=== PATIENT | female | born 1960 | race Caucasian/White ===

== ENCOUNTER 2017-07-12 12:28 | Emergency (ER) | payer MEDICARE, OTHER ==
[~2017-07-12] VITALS: Ht 167.6 cm; Wt 54.4 kg
[2017-07-12] MEDS ORDERED: LEVOTHYROXINE50 MCG PO ×2 (13:19→13:33)
[2017-07-12] MEDS ORDERED: DEPAKOTE ER250 MG PO ×2 (13:19→13:33)
== END 2017-07-12 13:45 | disposition home or self-care (01) ==
LOC: ED 12:28
DX: Z76.0 Encounter for issue of repeat prescription (principal); F31.9 Bipolar disorder, unspecified; E03.9 Hypothyroidism, unspecified; Z79.899 Other long term (current) drug therapy; Z88.5 Allergy status to narcotic agent; Z88.8 Allergy status to other drugs, medicaments and biological substances
CPT/HCPCS: 99281

== ENCOUNTER 2017-09-12 21:30 | Emergency (ER) | payer MEDICARE, OTHER ==
[~2017-09-12] VITALS: Ht 167.6 cm; Wt 54.4 kg
[~2017-09-12 21:30] MED LIST: DEPAKOTE ER250 MG PO; LEVOTHYROXINE50 MCG PO
[2017-09-12] MEDS ORDERED: PENICILLIN V P500 MG PO (22:34)
== END 2017-09-12 22:48 | disposition home or self-care (01) ==
LOC: ED 21:30
DX: K04.7 Periapical abscess without sinus (principal); F31.9 Bipolar disorder, unspecified; Z88.5 Allergy status to narcotic agent; Z88.8 Allergy status to other drugs, medicaments and biological substances; Z79.899 Other long term (current) drug therapy
CPT/HCPCS: 99283

== ENCOUNTER 2017-09-13 18:32 | Emergency (ER) | payer MEDICARE, OTHER ==
[~2017-09-13] VITALS: Ht 167.6 cm; Wt 54.4 kg
[~2017-09-13 18:32] MED LIST changes: +PENICILLIN V P500 MG PO
== END 2017-09-13 20:47 | disposition home or self-care (01) ==
LOC: ED 18:32
DX: F31.9 Bipolar disorder, unspecified (principal); K04.7 Periapical abscess without sinus; Z88.5 Allergy status to narcotic agent; Z88.8 Allergy status to other drugs, medicaments and biological substances; Z79.899 Other long term (current) drug therapy
CPT/HCPCS: 80053; 80176; 81001; 84443; 85025; 87088; 99284; G0480

== ENCOUNTER 2017-10-03 20:43 | Emergency (ER) | payer MEDICARE, OTHER ==
[~2017-10-03] VITALS: Ht 167.6 cm; Wt 54.4 kg
[2017-10-03] MEDS ORDERED: IBU600 MG PO (22:18)
[2017-10-03] MEDS ORDERED: NORCO 5-325 TA1 EACH PO (22:19)
== END 2017-10-04 00:40 | disposition home or self-care (01) ==
LOC: ED 20:43
DX: F44.9 Dissociative and conversion disorder, unspecified (principal); Z88.5 Allergy status to narcotic agent; Z88.8 Allergy status to other drugs, medicaments and biological substances; Z79.899 Other long term (current) drug therapy
CPT/HCPCS: 80053; 80176; 81001; 84443; 85025; 99284; G0480

== ENCOUNTER 2018-07-25 18:12 | Emergency (ER) | payer MEDICARE, OTHER ==
[~2018-07-25] VITALS: Ht 167.6 cm; Wt 54.4 kg
[~2018-07-25 18:12] MED LIST changes: +IBU600 MG PO; +NORCO 5-325 TA1 EACH PO
--- OUTSIDE RECORDS SUMMARY | 2018-07-25 18:16 | XMS ---
PreManage Notification: SARKIS KOO Security Marketing Operations Assistant Events No recent Security Events currently on file CRITERIA MET - [facility] CARE PROVIDERS RACHEL RASMUSSEN Nurse Practitioner Current PHONE: Unknown Mindy Gallegos Mental Health Provider Current PHONE: [phone] Aniket Nix - Case or Undercollar Baster Current [employer] PHONE: [phone] RACHEL RASMUSSEN Primary Care Current PHONE: [phone] Ivonne has no Care Guidelines for this patient. Care History Medical/Surgical 10/04/2017 [facility] - Patient is currently being case managed and working with [employer]. - Patient currently lives at [place], and has psychiatric disorder. Care Recommendation: This patient has had 5 or more Emergency Department visits in the last 12 months. Patient requires education on the scope and purpose of the ED as an acute care provider not a Primary Care Provider and should not be utilized for chronic conditions. If patient returns to ED please contact [facility] at [phone]. These are guidelines and the provider should exercise clinical judgment when providing care. E.D. VISIT COUNT (12 MO.) [address] [facility] TOTAL 5 NOTE: Visits indicate total known visits. ED/UCC VISIT TRACKING (12 MO.) 07/25/2018 18:13 [facility] [place] TYPE: Emergency COMPLAINT: - DIZZINESS 10/03/2017 20:43 [facility] [place] TYPE: Emergency COMPLAINT: - ALTERED LOC DIAGNOSES: - Allergy status to other drugs, medicaments and biological substances status - [facility] [place] [facility] [place] therapy - Allergy status to narcotic agent status - Dissociative and conversion disorder, unspecified 09/19/2017 12:59 [facility] TYPE: Urgent Care DIAGNOSES: - Medication Refill - Hypothyroidism, unspecified - Bipolar disorder, current episode mixed, unspecified 09/13/2017 18:33 [facility] [place] TYPE: Emergency COMPLAINT: - MEDICAL CLEARANCE DIAGNOSES: - Periapical abscess without sinus - Allergy status to other drugs, medicaments and biological substances status - Allergy status to narcotic agent status - Encounter for other general examination - Other [place] [facility] [place] drug therapy - Bipolar disorder, unspecified 09/12/2017 21:30 [facility] [place] TYPE: Emergency COMPLAINT: - MENTAL HEALTH EVAL DIAGNOSES: - Other manager terminal (current) drug therapy - Allergy status to other drugs, medicaments and biological substances status - Periapical abscess without sinus - Bipolar disorder, unspecified - Allergy status to narcotic agent status - Encounter for other general examination 09/03/2017 12:46 [facility] [place] TYPE: Emergency COMPLAINT: - MENTAL HEALTH DIAGNOSES: - Encounter for issue of repeat prescription - Anxiety disorder, unspecified - Bipolar disorder, unspecified INPATIENT VISIT TRACKING (12 MO.) No inpatient visits to display in this time frame [email or web address]
[2018-07-25] MEDS ORDERED: TRAZODONE HCL100 MG PO (18:31)
[2018-07-25] MEDS ORDERED: METOPROLOL SUCC50 MG PO (18:31)
[2018-07-25] MEDS ORDERED: OLANZAPINE ODT5 MG PO (18:31)
[2018-07-25] MEDS ORDERED: LEVOTHYROXINE50 MCG PO (18:31)
[2018-07-25] MEDS ORDERED: REXULTI3 MG PO (18:31)
--- NOTE | 2018-07-25 20:01 | EKG ---
[facility] [address] [facility] [place] [address] Signed Sinus bradycardia Nonspecific T wave abnormality Cannot rule out Septal infarct Abnormal ECG No previous ECGs available Confirmed by KHANH MCELROY MD ([id number]) on 07/25/2018 8:01:36 PM Electronically Signed By: KHANH MCELROY MD 07/25/18 2001 PATIENT NAME: SARKIS KOO Electrocardiogram DATE OF : 64 PHYSICIAN: KHANH MCELROY MD REPORT #: [id number] REPORT IS CONFIDENTIAL AND NOT TO BE RELEASED WITHOUT AUTHORIZATION
== END 2018-07-25 20:08 | disposition home or self-care (01) ==
LOC: ED 18:12
DX: R55 Syncope and collapse (principal); F31.9 Bipolar disorder, unspecified; Z88.5 Allergy status to narcotic agent; Z88.8 Allergy status to other drugs, medicaments and biological substances; Z91.048 Other nonmedicinal substance allergy status; Z79.899 Other long term (current) drug therapy
CPT/HCPCS: 80053; 80164; 84484; 85025; 93005; 93010; 93225; 93226; 93227; 99284-25

== ENCOUNTER 2019-04-30 18:56 | Emergency (ER) | payer MEDICARE, OTHER ==
[~2019-04-30] VITALS: Ht 167.6 cm; Wt 65.3 kg
--- OUTSIDE RECORDS SUMMARY | ~2019-04-30 | XMS | Encounter Summary ---
Demographics + + + | Address | [address] | | | [place] [address] | + + + | Home Phone | | + + + | Preferred Language | Unknown | + + + | Marital Status | Single | + + + | Bahai Affiliation | 1013 | + + + | Race | Unknown | + + + | Ethnic Group | Unknown | + + + Author + + + | Author | [facility] | | | and [place] | + + + | Organization | [facility] | | | and [place] | + + + | Address | Unknown | + + + | Phone | Unavailable | + + + Support + + + + + | Name | Relationship | Address | Phone | + + + + + | Cassidy Perez | ECON | Unknown | | + + + + + | Sara Tse | ECON | [place], [place] | | + + + + + | Brant Almazan | ECON | Unknown | | + + + + + | Sherine Tse | ECON | Unknown | | + + + + + Care Team Providers + +------+ + | Care Staff Assistant Name | Role | Phone | + +------+ + | Darryl Duartenadine BRICENO | PCP | | + +------+ + Reason for Visit + + + | Reason | Comments | + + + | Rib Pain | | + + + Encounter Details +--------+ + + + + | Date | Type | Department | Care Team | Description | +--------+ + + + + | 06/14/ | Emergency | [facility] | Usama Adorno, | 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[facility] | [address] | syndrome (Primary | | | | EM[facility] | [place] [address] | Dx); Anxiety about | | | | [address] | [phone] | health | | | | [place] | | | | | | [address] | | | | | | [phone] | | | +--------+ + + + + Social History + +-------+ +--------+------+ | Tobacco Use | Types | Packs/Day | Years | Date | | | | | Used | | + +-------+ +--------+------+ | Never Smoker | | | | | + +-------+ +--------+------+ + + +---------+ + | Alcohol Use | Drinks/Week | oz/Week | Comments | + + +---------+ + | No | | | | + + +---------+ + + + + | Sex Assigned at | Date Recorded | | | | + + + | Not on file | | + + + + + + + | Job Start Date | Occupation | Industry | + + + + | Not on file | Not on file | Not on file | + + + + + + + + | Travel History | Travel Start | Travel End | + + + + + + | No recent travel history available. | + + documented as of this encounter Last Filed Vital Signs + + + + + | Vital Sign | Reading | Time Taken | Comments | + + + + + | Blood Pressure | 126/95 | 06/14/2016 11:38 PM | | | | | PST | | + + + + + | Pulse | 63 | 06/14/2016 11:38 PM | | | | | PST | | + + + + + | Temperature | 36.8 C (98.3 F) | 06/14/2016 5:22 PM | | | | | PST | | + + + + + | Respiratory Rate | 16 | 06/14/2016 11:38 PM | | | | | PST | | + + + + + | Oxygen Saturation | 100% | 06/14/2016 11:38 PM | | | | | PST | | + + + + + | Inhaled Oxygen | - | - | | | Concentration | | | | + + + + + | Weight | 54.4 kg (120 lb) | 06/14/2016 5:22 PM | | | | | PST | | + + + + + | Height | 168.9 cm (5' 6.5") | 06/14/2016 5:22 PM | | | | | PST | | + + + + + | Body Mass Index | 19.08 | 06/14/2016 5:22 PM | | | | | PST | | + + + + + documented in this encounter Discharge Instructions Instructions Usama Adorno MD - 06/14/2016Take it easy and use ice 30 minutes 4 times a day for the next week to the left side near chest Avoid any sudden movements or straining of your chest wall including heavy lifting or prolo nged walking or running Motrin will certainly help decrease the inflammation along with ice and if the pain gets ba d you can use Ultram There are no signs of any problems with your lungs or your ribs today. There is no signs of any problems insides are abdomen today Return for problems or concerns and follow-up your doctor next week if not resolved. documented in this encounter Medications at Time of Discharge + + + +---------+ + + | Medication | Sig | Dispensed | Refills | Start | End Date | | | | | | Date | | + + + +---------+ + + | Divalproex Sodium | Take by mouth. | | 0 | | | | (DEPAKOTE PO) | 250mg in the AM and | | | | 8 | | | 750mg in the evening | | | | | + + + +---------+ + + | ibuprofen | Take 1 tablet by | 30 | 0 | 06/14/19 | | | (ADVIL,MOTRIN) 800 | mouth every 8 hours | tablet | | 17 | 7 | | MG tablet | as needed for Pain. | | | | | + + + +---------+ + + | levothyroxine | Take 88 mcg by mouth | | 0 | | | | (SYNTHROID, | every morning | | | | 8 | | LEVOTHROID) 88 mcg | (before breakfast). | | | | | | tablet | | | | | | + + + +---------+ + + | traMADol (ULTRAM) | Take 1 tablet by | 20 | 0 | 06/14/19 | | | 50 mg tablet | mouth every 6 hours | tablet | | 17 | 8 | | | as needed for Pain. | | | | | + + + +---------+ + + documented as of this encounter Plan of Treatment +--------+---------+ + + + | Date | Type | Specialty | Care Team | Description | +--------+---------+ + + + | 08/15/ | Office | Cardiology | Tali Manzo DO | | | 2020 | Visit | | [address] | | | | | | [place] | | | | | | [address] | | | | | | | | +--------+---------+ + + + + +------+--------+ + + | Name | Type | Priori | Associated Diagnoses | Date/Time | | | | ty | | | + +------+--------+ + + | ECG 12 lead | ECG | STAT | | 06/14/2016 7:37 PM | | | | | | PST | + +------+--------+ + + documented as of this encounter Procedures + +--------+ + + + | Procedure Name | Priori | Date/Time | Associated Diagnosis | Comments | | | ty | | | | + +--------+ + + + | EXTRA HOLD TUBE(S) | Routin | 06/14/2016 | | Results for this | | | e | 10:14 PM | | procedure are in the | | | | PST | | results section. | + +--------+ + + + | EXTRA HOLD TUBE(S) | STAT | 06/14/2016 | | Results for this | | | | 9:03 PM | | procedure are in the | | | | PST | | results section. | + +--------+ + + + | TROPONIN I | STAT | 06/14/2016 | | Results for this | | | | 9:03 PM | | procedure are in the | | | | PST | | results section. | + +--------+ + + + | D-DIMER | STAT | 06/14/2016 | | Results for this | | | | 9:03 PM | | procedure are in the | | | | PST | | results section. | + +--------+ + + + | CBC WITH | STAT | 06/14/2016 | | Results for this | | DIFFERENTIAL | | 9:03 PM | | procedure are in the | | | | PST | | results section. | + +--------+ + + + | COMPREHENSIVE | STAT | 06/14/2016 | | Results for this | | METABOLIC PANEL | | 9:03 PM | | procedure are in the | | | | PST | | results section. | + +--------+ + + + | XR CHEST 2 VIEWS | STAT | 06/14/2016 | | Results for this | | | | 8:58 PM | | procedure are in the | | | | PST | | results section. | + +--------+ + + + | ECG 12 LEAD | STAT | 06/14/2016 | | | | | | 7:37 PM | | | | | | PST | | | + +--------+ + + + documented in this encounter Results Extra Hold Tube(s) (06/14/2016 10:14 PM PST) + +-------+ + + + | Component | Value | Ref Range | Performed | Pathologist | | | | | At | Signature | + +-------+ + + + | Extra Tube | URINE | | [facility] | | | | | [facility] | | | | | | [facility] | | | | | | LABORATORY | | + +-------+ + + + + + | Specimen | + + | | + + + + + + + | Performing | Address | City/State/Zipcode | Phone Number | | Organization | | | | + + + + + | [facility] | [address] | [place] [address] | | | [facility] | | | | | LABORATORY | | | | + + + + + Extra Hold Tube(s) (06/14/2016 9:03 PM PST) + +-------+ + + + | Component | Value | Ref Range | Performed | Pathologist | | | | | At | Signature | + +-------+ + + + | Extra Tube | SST | | [facility] | [facility] | | | | | | [facility] | | | | | | CENTER | | | | | | LABORATORY | | + +-------+ + + + + + | Specimen | + + | | + + + + + + + | Performing | Address | City/State/Zipcode | Phone Number | | Organization | | | | + + + + + | [facility] | [address] | [place] [address] | | | [facility] | | | | | LABORATORY | | | | + + + + + D-Dimer (06/14/2016 9:03 PM PST) + + + + + + | Component | Value | Ref Range | Performed | Pathologist | | | | | At | Signature | + + + + + + | D-Dimer | 0.36Comment: This | <0.50 ug/mL FEU | [facility] | | | Quantitativ | quantitative D Dimer | | [facility] | | | e | assay has been evaluated | | HEART | | | | for screening for | | MEDICAL | | | | venous thrombotic | | CENTER | | | | disease, and may be | | LABORATORY | | | | useful in ruling out, | | | | | | but not ruling in | | | | | | disease. Values less | | | | | | than 0.40 ug/mL have a | | | | | | negative predictive | | | | | | value of >95% for ruling | | | | | | out large pulmonary | | | | | | emboli or proximal deep | | | | | | vein thrombosis. Distal | | | | | | DVT are not excluded. | | | | | | Rheumatoid factor may | | | | | | falsely elevate the | | | | | | determined D Dimer | | | | | | levels. | | | | + + + + + + + + | Specimen | + + | Blood specimen | | (specimen) | + + + + + + + | Performing | Address | City/State/Zipcode | Phone Number | | Organization | | | | + + + + + | [facility] | [address] | [place] [address] | | | [facility] | | | | | LABORATORY | | | | + + + + + Troponin I (06/14/2016 9:03 PM PST) + +-------+ + + + | Component | Value | Ref Range | Performed | Pathologist | | | | | At | Signature | + +-------+ + + + | Troponin I | 0.02 | 0.00 - 0.06 | [facility] | | | | | ng/mL | [facility] | | | | | | [facility] | | | | | | MEDICAL | | | | | | CENTER | | | | | | LABORATORY | | + +-------+ + + + + + | Specimen | + + | Blood specimen | | (specimen) | + + + + + + + | Performing | Address | City/State/Zipcode | Phone Number | | Organization | | | | + + + + + | [facility] | [address] | [place] [address] | | | [facility] | | | | | LABORATORY | | | | + + + + + Comprehensive Metabolic Panel (06/14/2016 9:03 PM PST) + + + + + + | Component | Value | Ref Range | Performed | Pathologist | | | | | At | Signature | + + + + + + | Na | 143 | 135 - 145 | [facility] | | | | | mmol/L | [facility] | | | | | | HE[facility] | | | | | | MEDICAL | | | | | | CENTER | | | | | | LABORATORY | | + + + + + + | K | 3.5 | 3.5 - 5.0 | [facility] | | | | | mmol/L | [facility] | | | | | | HE[facility] | | | | | | MEDICAL | | | | | | CENTER | | | | | | LABORATORY | | + + + + + + | Cl | 108 | 99 - 109 mmol/L | [facility] | | | | | [facility] | | | | | | [facility] | | | | | | MEDICAL | | | | | | CENTER | | | | | | LABORATORY | | + + + + + + | CO2 | 28 | 21 - 28 mmol/L | [facility] | | | | [facility] | | | | | | [facility] | | | | | | MEDICAL | | | | | | CENTER | | | | | | LABORATORY | | + + + + + + | Glucose | 66Comment: Green[place]ic | 65 - 99 mg/dL | [facility] | | | | Diabetes Association | | [facility] | | | | diagnostic categories | | HEART | | | | for non adults: | | MEDICAL | | | | Impaired fasting | | CENTER | | | | glucose 100 to 125 | | LABORATORY | | | | mg/dL. A fasting | | | | | | glucose result of 126 | | | | | | mg/dL or greater | | | | | | indicates diabetes if | | | | | | the abnormality is | | | | | | confirmed on a | | | | | | subsequent day. A | | | | | | random glucose result of | | | | | | greater than 200 mg/dL | | | | | | indicates diabetes if | | | | | | the abnormality is | | | | | | confirmed on a | | | | | | subsequent day. | | | | + + + + + + | BUN | 7 (L) | 8 - 25 mg/dL | [facility] | | | | | | [facility] | | | | | | [facility] | | | | | | MEDICAL | | | | | | CENTER | | | | | | LABORATORY | | + + + + + + | Creatinine | 0.58Comment: IDMS | 0.50 - 1.00 | [facility] | | | | traceable creatinine | mg/dL | [facility] | | | | | | HEART | | | | | | MEDICAL | | | | | | CENTER | | | | | | LABORATORY | | + + + + + + | Calcium | 9.2 | 8.5 - 10.2 | [facility] | | | | | mg/dL | [facility] | | | | | | HE[facility] | | | | | | MEDICAL | | | | | | CENTER | | | | | | LABORATORY | | + + + + + + | Total | 6.0 (L) | 6.1 - 8.4 g/dL | [facility] | | | Protein | | | [facility] | | | | | | HEART | | | | | | MEDICAL | | | | | | CENTER | | | | | | LABORATORY | | + + + + + + | Albumin | 3.9 | 3.5 - 5.0 g/dL | [facility] | | | | | | [facility] | | | | | | [facility] | | | | | | MEDICAL | | | | | | CENTER | | | | | | LABORATORY | | + + + + + + | Bilirubin | 0.3 | 0.1 - 1.5 mg/dL | [facility] | | | Total | | | [facility] | | | | | | HE[facility] | | | | | | MEDICAL | | | | | | CENTER | | | | | | LABORATORY | | + + + + + + | Alkaline | 53 | 35 - 115 U/L | [facility] | | | Phosphatase | | | [facility] | | | | | | HEART | | | | | | MEDICAL | | | | | | CENTER | | | | | | LABORATORY | | + + + + + + | AST | 21 | 10 - 45 U/L | [facility] | | | | | | [facility] | | | | | | [facility] | | | | | | MEDICAL | | | | | | CENTER | | | | | | LABORATORY | | + + + + + + | ALT | 13 | 10 - 65 U/L | [facility] | | | | | | [facility] | | | | | | [facility] | | | | | | MEDICAL | | | | | | CENTER | | | | | | LABORATORY | | + + + + + + | Anion Gap | 7 | 5 - 16 mmol/L | [facility] | | | | | | [facility] | | | | | | [facility] | | | | | | MEDICAL | | | | | | CENTER | | | | | | LABORATORY | | + + + + + + | Estimated | >60Comment: GFR <60: | >60 | [facility] | | | GFR | Chronic kidney disease, | ml/min/1.73m2 | [facility] | | | | if found over a 3 month | | HEART | | | | period.GFR <15: Kidney | | MEDICAL | | | | failure.For | | CENTER | | | | Americans, multiply the | | LABORATORY | | | | calculated GFR by 1.210 | | | | + + + + + + + + | Specimen | + + | Blood specimen | | (specimen) | + + + + + + + | Performing | Address | City/State/Zipcode | Phone Number | | Organization | | | | + + + + + | [facility] | [address] | [place] [address] | | | [facility] | | | | | LABORATORY | | | | + + + + + CBC with Differential (06/14/2016 9:03 PM PST) + + + + + + | Component | Value | Ref Range | Performed | Pathologist | | | | | At | Signature | + + + + + + | WBC | 6.8 | 3.8 - 11.0 K/uL | [facility] | | | | | [facility] | | | | | | [facility] | | | | | | MEDICAL | | | | | | CENTER | | | | | | LABORATORY | | + + + + + + | RBC | 4.56 | 3.70 - 5.10 | [facility] | | | | | M/uL | [facility] | | | | | | HE[facility] | | | | | | MEDICAL | | | | | | CENTER | | | | | | LABORATORY | | + + + + + + | Hemoglobin | 13.7 | 11.3 - 15.5 | [facility] | | | | | g/dL | [facility] | | | | | | HE[facility] | | | | | | MEDICAL | | | | | | CENTER | | | | | | LABORATORY | | + + + + + + | Hematocrit | 40.7 | 34.0 - 46.0 % | [facility] | | | | | | [facility] | | | | | | [facility] | | | | | | MEDICAL | | | | | | CENTER | | | | | | LABORATORY | | + + + + + + | MCV | 89.3 | 80.0 - 100.0 fL | [facility] | | | | | | [facility] | | | | | | [facility] | | | | | | MEDICAL | | | | | | CENTER | | | | | | LABORATORY | | + + + + + + | MCH | 30.1 | 27.0 - 34.0 pg | [facility] | | | | | | [facility] | | | | | | [facility] | | | | | | MEDICAL | | | | | | CENTER | | | | | | LABORATORY | | + + + + + + | MCHC | 33.7 | 32.0 - 35.5 | [facility] | | | | | g/dL | [facility] | | | | | | HE[facility] | | | | | | MEDICAL | | | | | | CENTER | | | | | | LABORATORY | | + + + + + + | RDW-CV | 13.9 | 11.0 - 15.5 % | [facility] | | | | | | [facility] | | | | | | [facility] | | | | | | MEDICAL | | | | | | CENTER | | | | | | LABORATORY | | + + + + + + | Platelet | 167 | 150 - 400 K/uL | [facility] | | | Count | | | [facility] | | | | | | HEART | | | | | | MEDICAL | | | | | | CENTER | | | | | | LABORATORY | | + + + + + + | Differentia | Automated | | [facility] | | | l Type | | | [facility] | | | | | | HEART | | | | | | MEDICAL | | | | | | CENTER | | | | | | LABORATORY | | + + + + + + | % | 58.4 | 40.0 - 75.0 % | [facility] | | | Neutrophils | | | [facility] | | | | | | HEART | | | | | | MEDICAL | | | | | | CENTER | | | | | | LABORATORY | | + + + + + + | % | 33.1 | 15.0 - 48.0 % | [facility] | | | Lymphocytes | | | [facility] | | | | | | HE[facility] | | | | | | MEDICAL | | | | | | CENTER | | | | | | LABORATORY | | + + + + + + | % Monocytes | 7.0 | 0.0 - 12.0 % | [facility] | | | | | | [facility] | | | | | | [facility] | | | | | | MEDICAL | | | | | | CENTER | | | | | | LABORATORY | | + + + + + + | % | 0.7 | 0.0 - 7.0 % | [facility] | | | Eosinophils | | | [facility] | | | | | | HEART | | | | | | MEDICAL | | | | | | CENTER | | | | | | LABORATORY | | + + + + + + | % Basophils | 0.8 | 0.0 - 2.0 % | [facility] | | | | | | [facility] | | | | | | [facility] | | | | | | MEDICAL | | | | | | CENTER | | | | | | LABORATORY | | + + + + + + | Absolute | 4.00 | 1.90 - 7.40 | [facility] | | | Neutrophils | | K/uL | [facility] | | | | | | HE[facility] | | | | | | MEDICAL | | | | | | CENTER | | | | | | LABORATORY | | + + + + + + | Absolute | 2.20 | 1.00 - 3.90 | [facility] | | | Lymphocytes | | K/uL | [facility] | | | | | | HE[facility] | | | | | | MEDICAL | | | | | | CENTER | | | | | | LABORATORY | | + + + + + + | Absolute | 0.50 | 0.00 - 0.80 | [facility] | | | Monocytes | | K/uL | [facility] | | | | | | HE[facility] | | | | | | MEDICAL | | | | | | CENTER | | | | | | LABORATORY | | + + + + + + | Absolute | 0.00 | 0.00 - 0.50 | [facility] | | | Eosinophils | | K/uL | [facility] | | | | | | HE[facility] | | | | | | MEDICAL | | | | | | CENTER | | | | | | LABORATORY | | + + + + + + | Absolute | 0.10 | 0.00 - 0.10 | [facility] | | | Basophils | | K/uL | [facility] | | | | | | HE[facility] | | | | | | MEDICAL | | | | | | CENTER | | | | | | LABORATORY | | + + + + + + + + | Specimen | + + | Blood specimen | | (specimen) | + + + + + + + | Performing | Address | City/State/Zipcode | Phone Number | | Organization | | | | + + + + + | [facility] | [address] | [place] [address] | | | [facility] | | | | | LABORATORY | | | | + + + + + XR Chest 2 VW (06/14/2016 8:58 PM PST) + + | Specimen | + + | | + + + + + | Narrative | Performed At | + + + | CHEST TWO VIEWS CLINICAL INFORMATION: Left sided chest | [facility] | | pain for four weeks. COMPARISON: No comparisons FINDINGS: | | | The heart size and pulmonary vasculature are normal. No focal lung | | | consolidation, pleural effusion or pneumothorax. Visualized osseous | | | structures are unremarkable. IMPRESSION: Negative chest. | | | Signed by: Dr. Merced Sanchez | | + + + + + | Procedure Note | + + | Sanjeev, Rad Results In - 06/14/2016 9:06 PM PST | | | | CHEST TWO VIEWS | | | | CLINICAL INFORMATION: | | Left sided chest pain for four weeks. | | | | COMPARISON: | | No comparisons | | | | FINDINGS: | | The heart size and pulmonary vasculature are normal. No focal lung | | consolidation, pleural effusion or pneumothorax. Visualized osseous | | structures are unremarkable. | | | | IMPRESSION: | | Negative chest. | | | | | | | | Signed by: Dr. 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 | + + | Anxiety about health | + + documented in this encounter Administered Medications + +--------+ +--------+------+------+ | Medication Order | MAR | Action | Dose | Rate | Site | | | Action | Date | | | | + +--------+ +--------+------+------+ | acetaminophen (TYLENOL) tablet | Given | 06/14/19 | 650 mg | | | | 650 mg 650 mg, Oral, ONCE, Mon | | 17 10:12 | | | | | 06/14/16 at 2155, For 1 dose | | PM PST | | | | + +--------+ +--------+------+------+ +---+---+ | | | +---+---+ + +-------+ +-------+---+---+ | ketorolac (TORADOL) injection | Given | 06/14/19 | 15 mg | | | | 15 mg 15 mg, Intravenous, ONCE, | | 17 9:04 | | | | | 06/14/16 at 1925, For 1 dose | | PM PST | | | | + +-------+ +-------+---+---+ +---+---+ | | | +---+---+ + +-------+ +-------+---+---+ | ketorolac (TORADOL) injection | Given | 06/14/19 | 15 mg | | | | 15 mg 15 mg, Intravenous, ONCE, | | 17 10:12 | | | | | 06/14/16 at 2155, For 1 dose | | PM PST | | | | + +-------+ +-------+---+---+ +---+---+ | | | +---+---+ + +-------+ +------+---+---+ | ondansetron (ZOFRAN) injection | Given | 06/14/19 | 4 mg | | | | 4 mg 4 mg, Intravenous, ONCE, | | 17 10:12 | | | | | 06/14/16 at 2155, For 1 dose | | PM PST | | | | + +-------+ +------+---+---+ +---+---+ | | | +---+---+ + +-------+ + +---+---+ | oxyCODONE-acetaminophen | Given | 06/14/19 | 1 tablet | | | | (PERCOCET) 5-325 mg per tablet 1 | | 17 10:12 | | | | | tablet 1 tablet, Oral, ONCE, Mon | | PM PST | | | | | 06/14/16 at 2155, For 1 dose | | | | | | + +-------+ + +---+---+ +---+---+ | | | +---+---+ documented in this encounter
--- OUTSIDE RECORDS SUMMARY | ~2019-04-30 | XMS | Encounter Summary ---
Demographics + + + | Address | [address] | | | [place] [address] | + + + | Home Phone | | + + + | Preferred Language | Unknown | + + + | Marital Status | Single | + + + | Buddhist Affiliation | 1013 | + + + | Race | Unknown | + + + | Ethnic Group | Unknown | + + + Author + + + | Author | [facility] | | | and [place] | + + + | Organization | [facility] | | | [...] Team Providers + +------+ + | Care Noc Engineer Name | Role | Phone | + +------+ + | Rachel Duarte [facility] | PCP | | + +------+ + Reason for Visit +---------+ + | Reason | Comments | +---------+ + | Otalgia | | +---------+ + Encounter Details +--------+ + + + + | Date | Type | Department | Care Team | Description | +--------+ + + + + | 11/11/ | Emergency | [facility] | Neema Gar, | Eustachian tube | | 2017 | | [facility] | [facility] [address], | dysfunction, | | | | [facility] | - Emergency Dept | unspecified | | | | [address] | [place] [address] | laterality (Primary | | | | [place] | [phone] | Dx); Gingivitis | | | | [address] | | | | | | [phone] | | | +--------+ + + + [...] + + + | Blood Pressure | 103/69 | 11/11/2016 5:24 PM | | | | | PDT | | + + + + + | Pulse | 76 | 11/11/2016 5:24 PM | | | | | PDT | | + + + + + | Temperature | 36.8 C (98.3 F) | 11/11/2016 5:24 PM | | | | | PDT | | + + + + + | Respiratory Rate | 16 | 11/11/2016 5:24 PM | | | | | PDT | | + + + + + | Oxygen Saturation | 97% | 11/11/2016 5:24 PM | | | | | PDT | | + + + + + | Inhaled Oxygen | - | - | | | Concentration | | | | + + + + + | Weight | 57.2 kg (126 lb) | 11/11/2016 5:24 PM | | | | | PDT | | + + + + + | Height | 167.6 cm (5' 6") | 11/11/2016 5:24 PM | | | | | PDT | | + + + + + | Body Mass Index | 20.34 | 11/11/2016 5:24 PM | | | | | PDT | | + + + + + documented in this encounter Discharge Instructions Instructions Neema Gar ARNP - 11/11/2016Prednisone as prescribed for 3 days Flonase 1 spray each nostril twice daily as needed until the eustachian tubes are draining normally History you're drinking plenty of fluid 1.Good oral care, brush with soft bristle toothbrush and toothpaste for sensative teeth 2. Rinse with 50/50 mix of mouthwash and hydrogen peroxide 3. Follow up with your dentist as soon as possible AttachmentsThe following attachments cannot be sent through Care Everywhere.EAR PROBLEMS, Dione GILLIAM (OMANI)documented in this encounter Medications at Time of [...] + + + +---------+ + + | fluticasone | 1 spray by Nasal | 15.8 mL | 0 | 11/12/19 | | | (FLONASE) 50 | route Twice daily | | | 17 | 8 | | mcg/nasal spray | as needed for | | | | | | | Allergies. | | | | | + + [...] + + + +---------+ + + | predniSONE | Take 2 tablets by | 12 | 0 | 11/12/19 | | | (DELTASONE) 10 mg | mouth 2 times daily | tablet | | 17 | 7 | | tablet | for 3 days. | | | | | + + [...] | Tali Manzo DO | | | 2019 | Visit | | [address] | | | | | | [place] | | | | | | [address] | | | | | | | | +--------+---------+ + + + + +------+--------+ + + | Name | Type | Priori | Associated Diagnoses | Date/Time | | | | ty | | | + +------+--------+ + + | ED INFORMATION | [facility] | Routin | | 11/11/2016 5:23 PM | | EXCHANGE | | e | | PDT | + +------+--------+ + + documented as of this encounter Procedures + +--------+ + + + | Procedure Name | Priori | Date/Time | Associated Diagnosis | Comments | | | ty | | | | + +--------+ + + + | ED INFORMATION | Routin | 11/11/2016 | | | | EXCHANGE | e | 5:23 PM | | | | | | PDT | | | + +--------+ + + + +---+--------+ | | | | | Proced | | | ure | | | Note - | | | Zaria, | | | Lab In | | | | | | Hlseve | | | n - | | | 11/11/ | | | 2016 | | | 5:24 | | | PM PDT | | | | | | Format | | | ting | | | of | | | this | | | note | | | might | | | be | | | differ | | | ent | | | from | | | the | | | origin | | | al.ZARIA | | | E?NOTI | | | FICATI | | | ON?06/ | | | 15/ | | | 7 | | | 17:20? | | | HASKET | | | T, | | | SARKIS | | | | | | A?MRN: | | | | | | [id number] | | | [id number] | | | his | | | patien | | | t has | | | regist | | | ered | | | at the | | | | | | Provid | | | ence | | | [facility] | | | l | | | Center | | | | | | Emerge | | | ncy | | | Depart | | | ment | | | For | | | more | | | inform | | | ation | | | visit: | | | | | | https: | | | //prov | | | .ediec | | | arepla | | | [email or web address].com/ | | | patien | | | [id number] | | | [email or web address] | | | [id number] | | | [email or web address] | | | [id number] | | | [id number] | | | 5c ED | | | Care | | | Guidel | | | inesTh | | | ere | | | are | | | curren | | | tly no | | | ED | | | Care | | | Guidel | | | luis | | | in | | | [facility] | | | for | | | this | | | patien | | | t. | | | Please | | | check | | | your | | | facili | | | ty's | | | medica | | | l | | | record | | | s | | | system | | | .Recen | | | t | | | Emerge | | | ncy | | | Depart | | | ment | | | Visit | | | Summar | | | yAdmit | | | Date | | | Facili | | | ty | | | City | | | State | | | Type | | | Major | | | Type | | | Diagno | | | ses or | | | Chief | | | | | | Compla | | | int | | | Jonathan | | | 15, | | | 2017 | | | Prov[facility] | | | ence | | | [facility] [place] | | | [place] | | | Emerge | | | ncy | | | Emerge | | | ncy | | | Apr | | | 23, | | | 2017 | | | Provid | | | ence | | | [facility] [place] | | | [place] | | | Emerge | | | ncy | | | Emerge | | | ncy | | | | | | Dental | | | Pain | | | | | | Other | | | specif | | | ied | | | disord | | | ers of | | | teeth | | | and | | | suppor | | | ting | | | struct | | | ures | | | Mar | | | 17, | | | 2017 | | | Prov[facility] | | | ence | | | [facility] [place] | | | [place] | | | Emerge | | | ncy | | | Emerge | | | ncy | | | | | | Psychi | | | atric | | | Evalua | | | tion | | | | | | Sexual | | | ly | | | Transm | | | itted | | | Diseas | | | e | | | Check | | | | | | Urinar | | | y | | | tract | | | infect | | | ion, | | | site | | | not | | | specif | | | ied | | | | | | Person | | | with | | | feared | | | | | | health | | | | | | compla | | | int in | | | whom | | | no | | | diagno | | | sis is | | | made | | | E.D. | | | Visit | | | Count | | | (12 | | | mo.)Fa | | | cility | | | | | | Visits | | | Low | | | Acuity | | | | | | Provid | | | ence | | | [facility] | | | [facility] | | | | | | Medica | | | l | | | Center | | | 5 0 | | | Total | | | 5 0 | | | Note: | | | Visits | | | | | | indica | | | te | | | total | | | known | | | visits | | | . | | | Medica | | | id Low | | | | | | Acuity | | | Dx | | | are | | | the | | | number | | | of | | | primar | | | y | | | diagno | | | ses on | | | the | | | Medica | | | id's | | | Low | | | Acuity | | | dx | | | list. | | | | | | Recent | | | | | | Inpati | | | ent | | | Visit | | | Summar | | | yNo | | | record | | | ed | | | inpati | | | ent | | | visits | | | . | | | [place] | | | gton | | | PDMP | | | Report | | | PDMP | | | report | | | does | | | not | | | meet | | | criter | | | ia.Car | | | e | | | Provid | | | ersPro | | | vider | | | PRC | | | Type | | | Phone | | | Fax | | | Servic | | | e | | | Dates | | | RACHEL | | | LASALL | | | E | | | Primar | | | y Care | | | (509) | | | | | | [phone] | | | 00 | | | (509) | | | [phone] | | | 06 Nov | | | 1, | | | 2016 - | | | | | | Curren | | | t | | | Criter | | | ia met | | | 5 in | | | | | | 12Know | | | n | | | Aliase | | | sNo | | | known | | | aliase | | | s. The | | | above | | | | | | inform | | | ation | | | is | | | provid | | | ed for | | | the | | | sole | | | purpos | | | e of | | | patien | | | t | | | treatm | | | ent. | | | Use of | | | this | | | inform | | | ation | | | beyond | | | the | | | terms | | | of | | | Data | | | Sharin | | | g | | | Memora | | | ndum | | | of | | | Unders | | | tandin | | | g and | | | Licens | | | e | | | Agreem | | | ent is | | | | | | prohib | | | ited. | | | In | | | certai | | | n | | | cases | | | not | | | all | | | visits | | | may | | | be | | | repres | | | ented. | | | | | | Consul | | | t the | | | aforem | | | ention | | | ed | | | facili | | | ties | | | for | | | additi | | | onal | | | inform | | | ation. | | | ? | | | 2017 | | | Collec | | | tive | | | Medica | | | l | | | Techn[employer] | | | logies | | | , [employer] | | | - | | | [place] | | | [place] | | | [place], | | | [place] - | | | [email or web address] | | | ollect | | | ivemed | | | icalte | | | ch.com | | | | +---+--------+ documented in this encounter Visit Diagnoses + + | Diagnosis | + + | Eustachian tube dysfunction, unspecified laterality - Primary | + + | Gingivitis Chronic gingivitis, plaque induced | + + documented in this encounter
--- OUTSIDE RECORDS SUMMARY | ~2019-04-30 | XMS | Encounter Summary ---
Demographics + + + | Address | [address] | | | [place] [address] | + + + | Home Phone | | + + + | Preferred Language | Unknown | + + + | Marital Status | Single | + + + | Latter Day Affiliation | 1013 | + + + | Race | Unknown | + + + | Ethnic Group | Unknown | + + + Author + + + | Author | [facility] | | | and [place] | + + + | Organization | [facility] | | | [...] Team Providers + +------+ + | Care Crm Marketing Specialist Name | Role | Phone | + +------+ + | No, Physician | PCP | Unavailable | + +------+ + Reason for Visit +--------+ + | Reason | Comments | +--------+ + | Other | | +--------+ + Encounter Details +--------+ + + + + | Date | Type | Department | Care Team | Description | +--------+ + + + + | 10/04/ | Telephone | [facility] | Susie Pearson, | Other | | 2018 | | CARE [address] | [address] | | | | | [place] | [place] | | | | | [address] | [address] | | | | | [phone] | | | +--------+ + + + + Social History + +-------+ +--------+------+ | Tobacco Use | Types | Packs/Day | Years | Date | | | | | Used | | + +-------+ +--------+------+ | Never Smoker | | | | | + +-------+ +--------+------+ + +---+---+---+ | Smokeless Tobacco: | | | | | Never Used | | | | + +---+---+---+ + + +---------+ + | Alcohol Use [...] [place] | | | | | | [address] | | | | | | | | +--------+---------+ + + + documented as of this encounter Visit Diagnoses Not on filedocumented in this encounter"
--- OUTSIDE RECORDS SUMMARY | ~2019-04-30 | XMS | Clinical Summary ---
Demographics + + + | Address | [address] | | | [place] [address] | + + + | Home Phone | | + + + | Preferred Language | Unknown | + + + | Marital Status | Single | + + + | Cheondoism Affiliation | Unknown | + + + | Race | Unknown | + + + | Ethnic Group | Unknown | + + + Author + + + | Author | [facility] (Historical as of | | | 01-13-19) | + + + | Organization | [facility] (Historical as of | | | 01-13-19) | + + + | Address | Unknown | + + + | Phone | Unavailable | + + + Support + + +---------+ + | Name | Relationship | Address | Phone | + + +---------+ + | Brant Almazan | ECON | Unknown | | + + +---------+ + | Sherine Tse | ECON | Unknown | | + + +---------+ + Care Team Providers + +------+ + | Care Timber Robber Name | Role | Phone | + +------+ + | Jontahan Careny | PP | | + +------+ + Allergies + + + + + + | Active Allergy | Reactions | Severity | Noted | Comments | | | | | Date | | + + + + + + | Povidone Iodine | Rash | Medium | 06/07/19 | | | | | | 19 | | + + + + + + | Codeine | Nausea and Vomiting | Low | 06/07/19 | | | | | | 19 | | + + + + + + | Haloperidol And | Other (See Comments) | Medium | 06/07/19 | Became delerious | | Related | | | 19 | | + + + + + + | Flu Virus Vaccine | Rash | Medium | 06/07/19 | | | | | | 19 | | + + + + + + | [place] | Other (See Comments) | Medium | 06/07/19 | Fatigued and | | | | | 19 | "flat" feeling, she | | | | | | had zero motivation. | | | | | | | + + + + + + Current Medications + + +--------+---------+------+------+-------+ | Prescription | Sig. | Disp. | Refills | Star | End | Statu | | | | | | t | Date | s | | | | | | Date | | | + + +--------+---------+------+------+-------+ | divalproex | Take 250 mg by mouth | | | | | Activ | | (DEPAKOTE) 250 MG EC | 3 (three) times | | | | | e | | tablet | daily. | | | | | | + + +--------+---------+------+------+-------+ | traZODone | Take 100 mg by mouth | | | | | Activ | | (DESYREL) 100 MG | nightly. | | | | | e | | tablet | | | | | | | + + +--------+---------+------+------+-------+ | brexpiprazole | Take 3 mg by mouth | | | | | Activ | | (REXULTI) 3 MG | daily. | | | | | e | | tablet | | | | | | | + + +--------+---------+------+------+-------+ | acetaminophen | Take 325 mg by mouth | | | | | Activ | | (TYLENOL) 325 MG | every 6 (six) hours | | | | | e | | tablet | as needed for Pain. | | | | | | + + +--------+---------+------+------+-------+ | levothyroxine | Take 50 mcg by mouth | | | | | Activ | | (SYNTHROID) 50 MCG | every morning | | | | | e | | tablet | before breakfast. | | | | | | + + +--------+---------+------+------+-------+ | metoprolol | Take 1 tablet by | 30 | 11 | 07/01 | 07/01 | Activ | | (TOPROL-XL) 25 MG 24 | mouth daily. | tablet | | 8/20 | 8/ | e | | hr tablet | | | | 19 | 20 | | + + +--------+---------+------+------+-------+ | metoprolol | take 1 tablet by | 30 | 1 | 11/27 | | Activ | | (TOPROL-XL) 50 MG 24 | mouth once daily | tablet | | 20 | | e | | hr tablet | | | | 19 | | | + + +--------+---------+------+------+-------+ Active Problems + + + | Problem | Noted Date | + + + | Non-rheumatic mitral regurgitation | 06/15/2018 | + + + | Left ventricular outflow obstruction | 06/15/2018 | + + + | Systolic anterior movement of mitral valve | 06/15/2018 | + + + | Diastolic dysfunction | 06/15/2018 | + + + | LVH (left ventricular hypertrophy) | 06/15/2018 | + + + Family History + + +------+ + | Medical History | Relation | Name | Comments | + + +------+ + | Cancer | Father | | bladder | + + +------+ + + +------+ + + | Relation | Name | Status | Comments | + +------+ + + | Father | | | | + +------+ + + | Mother | | | | + +------+ + + Social History + +-------+ +--------+------+ [...] + +---------+ + | Alcohol Use | Drinks/We | oz/Week | Comments | | | ek | | | + + +---------+ + | Yes | | | Socially, but now in [employer] program and | | | | | is not allowed. | + + +---------+ + + + + | Sex Assigned at | Date Recorded | | | | + + + | Not on file | | + + + Last Filed Vital Signs + + + + | Vital Sign | Reading | Time Taken | + + + + | Blood Pressure | 102/56 | 07/27/2018 2:04 PM PST | + + + + | Pulse | 61 | 07/27/2018 2:04 PM PST | + + + + | Temperature | - | - | + + + + | Respiratory Rate | - | - | + + + + | Oxygen Saturation | 99% | 07/27/2018 2:04 PM PST | + + + + | Inhaled Oxygen | - | - | | Concentration | | | + + + + | Weight | 61.2 kg (135 lb) | 07/27/2018 2:04 PM PST | + + + + | Height | 168.9 cm (5' 6.5") | 07/27/2018 2:04 PM PST | + + + + | Body Mass Index | 21.46 | 07/27/2018 2:04 PM PST | + + + + Plan of Treatment + + + + + | Health Maintenance | Due Date | Last Done | Comments | + + + + + | Vaccine: | | | | | Dtap/Tdap/Td (1 - | 1 | | | | Tdap) | | | | + + + + + | Vaccine: | | | | | Pneumococcal 19-64 | 1 | | | | (PPSV23 only) Medium | | | | | Risk (1 of 1 - | | | | | PPSV23) | | | | + + + + + | Cervical Cancer | | | | | Screening (Pap) | 2 | | | + + + + + | Breast Cancer | | | | | Screening | 2 | | | | (Mammogram) | | | | + + + + + | Colon Cancer | | | | | Screening | 2 | | | | (Colonoscopy) | | | | + + + + + | Vaccine: Zoster (1 | | | | | of 2) | 2 | | | + + + + + Results Not on filefrom Last 3 Months Insurance + +--------+ +------+-------+ + | Payer | Benefi | Subscriber | Type | Phone | Address | | | t Plan | ID | | | | | | / | | | | | | | Group | | | | | + +--------+ +------+-------+ + | MEDICARE | MEDICA | [id number] | | | [address] | | | [place] | | | | [place] [phone] | | | IP-OP | | | | | + +--------+ +------+-------+ + | MEDICAID | MEDICA | [id number] | | | [address] | | | [place] | | | | [place] | | | [place] | | | | [address] | + +--------+ +------+-------+ + + +--------+ +--------+ + + | Guarantor Name | Accoun | Relation to | Date | Phone | Billing Address | | | t Type | Patient | of | | | | | | | | | | + +--------+ +--------+ + + | YUE TSE | Person | Self [birth year] Work: | [address] | | | al/[place] | | 2 | [phone] | [place] | | | [place] | | | [phone]: | [address] | | | | | | | | | | | | | [phone] | | | | | | [phone] | | + +--------+ +--------+ + +
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
--- OUTSIDE RECORDS SUMMARY | ~2019-04-30 | XMS | Encounter Summary ---
Demographics + + + | Address | [address] | | | [place] [address] | + + + | Home Phone | | + + + | Preferred Language | Unknown | + + + | Marital Status | Single | + + + | Hindu Affiliation | 1013 | + + + | Race | Unknown | + + + | Ethnic Group | Unknown | + + + Author + + + | Author | [facility] | | | and [place] | + + + | Organization | [facility] | | | and [...] Team Providers + +------+ + | Care Strapping Machine Operator Name | Role | Phone | + +------+ + | Jonathan Carney NP | PCP | | + +------+ + Encounter Details +--------+ + + + + | Date | Type | Department | Care Team | Description | +--------+ + + + + | 04/14/ | Orders Only | [facility] | Jonathan Carney | | | 2018 | | [address] | [address] | | | | | [address] | [facility], | | | | | [facility] | [address], | | | | | [address] | [place] [address] | | | | | [phone] | [phone] | | | | | | | | +--------+ + + + [...] [place] | | | | | | [address] | | | | | | | | +--------+---------+ + + + documented as of this encounter Procedures + +--------+ + + + | Procedure Name | Priori | Date/Time | Associated Diagnosis | Comments | | | ty | | | | + +--------+ + + + | ECHO INTERPRETATION | Routin | 04/14/2018 | | Results for this | | OF OUTSIDE FILMS | e | 11:31 AM | | procedure are in the | | | | PST | | results section. | + +--------+ + + + documented in this encounter Results ECHO Interpretation of Outside Films (04/14/2018 11:31 AM PST) + + | Specimen | + + | | + + + + + | Impressions | Performed At | + + + | 1. The left ventricle is normal in size, mild concentric hypertrophy | | | and hyperdynamic systolic function EF>70%. 2. Systolic anterior | | | motion of the mitral valve ARLET, peak/mean LVOT gradient of about 52/37 | | | mmHg. 3. The diastolic filling pattern indicates impaired relaxation | | | consistent with mild dysfunction (Grade I). 4. The right ventricle | | | is normal in size and function. 5. Moderate mitral regurgitation and | | | milldy dilated left atrium. 6. Mild tricuspid regurgitation and no | | | pulmonary hypertension. 7. There is no pericardial effusion. | | + + + + + + | Narrative | Performed At | + + + | Patient Name: Yue Tse Date of : 1960 | | | Performing Physician: Bel Leach MD | | | | | | ------REPORT ADDENDED------ INDICATIONS Murmur, SOB | | | CONCLUSIONS 1. The left ventricle is normal in size, | | | mild concentric hypertrophy and hyperdynamic systolic function EF>70%. | | | 2. Systolic anterior motion of the mitral valve ARLET, peak/mean LVOT | | | gradient of about 52/37 mmHg. 3. The diastolic filling pattern | | | indicates impaired relaxation consistent with mild dysfunction (Grade | | | I). 4. The right ventricle is normal in size and function. 5. | | | Moderate mitral regurgitation and milldy dilated left atrium. 6. Mild | | | tricuspid regurgitation and no pulmonary hypertension. 7. There is | | | no pericardial effusion. FINDINGS -------- ECG rhythm: Sinus | | | rhythm. Study: A 2-dimensional transthoracic echocardiogram with | | | m-mode, spectral and color flow Doppler was perfomed. Study: This was | | | a technically adequate study. Left Ventricle: Left ventricular | | | systolic function is hyperdynamic with an estimated EF of >70%. Left | | | Ventricle: The left ventricle cavity size is normal. Left Ventricle: | | | There is mild concentric left ventricular hypertrophy. Left | | | Ventricle: No regional wall motion abnormalities. Left Ventricle: | | | Moderate ARLET with peak LVOT gradient of about 52 mmHg. Left | | | Ventricle: The diastolic filling pattern indicates impaired relaxation | | | consistent with mild dysfunction (Grade I). Right Ventricle: The | | | right ventricle is normal in size and function. Left Atrium: The left | | | atrium is mildly enlarged. Right Atrium: The right atrium is normal | | | in size. Aortic Valve: The aortic valve appears to be trileaflet. | | | Aortic Valve: There is no evidence of aortic regurgitation. Aortic | | | Valve: There is no evidence of aortic stenosis. Mitral Valve: The | | | mitral valve is normal. Mitral Valve: Moderate mitral regurgitation | | | is present Mitral Valve: , predominately a posteriorly directed jet. | | | Tricuspid Valve: The tricuspid valve appears structurally normal. | | | Tricuspid Valve: Mild tricuspid regurgitation present. Tricuspid | | | Valve: There is no evidence of pulmonary hypertension. Tricuspid | | | Valve: The right ventricular systolic pressure (pulmonary artery | | | systolic pressure), as measured by Doppler, is 25.65mmHg. Pulmonic | | | Valve: The pulmonic valve was not well visualized. Pericardium: There | | | is no pericardial effusion. Pericardium: No pleural effusion seen. | | | IVC/Hepatic Veins: The IVC is normal size (1.5-2.5cm) and collapses | | | >50% with sniff, consistent with central venous pressures of 5-10mmHg. | | | Aorta: The aortic root, ascending aorta and aortic arch are normal. | | | MEASUREMENTS Ao asc: 2.89 cm Ao Diam: 3.37 | | | cm Ao st junct: 2.80 cm IVC: 1.75 cm LA Diam: 3.42 cm LA | | | Major: 4.79 cm EDV(Teich): 43.14 ml IVSd: 1.21 cm LVIDd: | | | 3.26 cm LVPWd: 1.16 cm LVOT Area: 3.63 cm2 LVOT Diam: | | | 2.15 cm %FS: 31.01 % EF(Teich): 60.01 % ESV(Teich): 17.25 | | | ml LVIDs: 2.25 cm SV(Teich): 25.89 ml RA Major: 4.93 cm | | | RV Major: 7.49 cm RVIDd: 1.92 cm TV Humaira Diam: 3.41 cm Ao | | | Root: 2.94 cm Ao Diam SVals: 3.39 cm LVEF MOD A2C: 72.86 % | | | SV MOD A2C: 61.20 ml LVEF MOD A4C: 70.07 % SV MOD A4C: | | | 61.20 ml EF Biplane: 71.49 % LVEDV MOD BP: 87.31 ml LVESV MOD | | | BP: 24.88 ml LVEDV MOD A2C: 83.99 ml LVLd A2C: 7.98 cm | | | LVEDV MOD A4C: 87.34 ml LVLd A4C: 8.33 cm LVESV MOD A2C: | | | 22.78 ml LVLs A2C: 7.27 cm LVESV MOD A4C: 26.14 ml LVLs A4C: | | | 6.98 cm LAESV(A-L): 62.12 ml LAESV Index (A-L): 34.90 ml/m2 | | | LAAs A2C: 21.48 cm2 LAESV A-L A2C: 75.66 ml LALs A2C: | | | 5.17 cm LAAs A4C: 16.49 cm2 LAESV A-L A4C: 47.67 ml LALs A4C: | | | 4.84 cm RAAs: 16.42 cm2 RAESV A-L: 46.24 ml RAESV MOD: | | | 45.67 ml RALs: 4.95 cm TAPSE: 2.58 cm AV maxP.14 | | | mmHg AV meanP.42 mmHg AV Vmax: 2.83 m/s AV Vmean: | | | 1.93 m/s AV VTI: 54.58 cm MAEGAN Vmax: 3.16 cm2 MAEGAN (VTI): | | | 3.56 cm2 LVOT maxP.40 mmHg LVOT meanP.61 mmHg LVSI | | | Dopp: 109.19 ml/m2 LVSV Dopp: 194.36 ml LVOT Vmax: 2.47 m/s | | | LVOT Vmean: 1.61 m/s LVOT VTI: 53.53 cm MV A Prince: 1.09 | | | m/s MV Dec [place]: 2.16 m/s2 MV DecT: 359.51 ms MV E Prince: | | | 0.78 m/s MV E/A Ratio: 0.71 MV PHT: 104.25 ms MVA By PHT: | | | 2.11 cm2 Septal e': 0.04 m/s Septal E/e': 17.90 Lateral e': | | | 0.05 m/s Lateral E/e': 13.01 RAP: 5 mmHg RVSP: 25.64 | | | mmHg TR maxP.64 mmHg TR Vmax: 2.27 m/s S': 0.11 m/s | | | Nursing Technician: DAVI Authenticated by: Bel Leach MD Report | | | Date/Time: 04-19-2018 17:44:1 | | + + + + + | Procedure Note | + + | Sanjeev, Rad Conversion - 01/18/2019 4:49 PM PDT Patient Name: Kiet Tse of | | : 1960 Performing Physician: Bel Leach | | ------REPORT | | ADDENDED------INDICATIONS Murmur, SOB CONCLUSIONS 1. The left | | ventricle is normal in size, mild concentric hypertrophy and hyperdynamic systolic | | function EF>70%.2. Systolic anterior motion of the mitral valve ARLET, peak/mean LVOT | | gradient of about 52/37 mmHg.3. The diastolic filling pattern indicates impaired | | relaxation consistent with mild dysfunction (Grade I).4. The right ventricle is normal | | in size and function.5. Moderate mitral regurgitation and milldy dilated left atrium.6. | | Mild tricuspid regurgitation and no pulmonary hypertension.7. There is no pericardial | | effusion. FINDINGS--------ECG rhythm: Sinus rhythm.Study: A 2-dimensional transthoracic | | echocardiogram with m-mode, spectral and color flow Doppler was perfomed.Study: This was | | a technically adequate study.Left Ventricle: Left ventricular systolic function is | | hyperdynamic with an estimated EF of >70%.Left Ventricle: The left ventricle cavity size | | is normal.Left Ventricle: There is mild concentric left ventricular hypertrophy.Left | | Ventricle: No regional wall motion abnormalities.Left Ventricle: Moderate ARLET with peak | | LVOT gradient of about 52 mmHg.Left Ventricle: The diastolic filling pattern indicates | | impaired relaxation consistent with mild dysfunction (Grade I).Right Ventricle: The | | right ventricle is normal in size and function.Left Atrium: The left atrium is mildly | | enlarged.Right Atrium: The right atrium is normal in size.Aortic Valve: The aortic valve | | appears to be trileaflet.Aortic Valve: There is no evidence of aortic | | regurgitation.Aortic Valve: There is no evidence of aortic stenosis.Mitral Valve: The | | mitral valve is normal.Mitral Valve: Moderate mitral regurgitation is presentMitral | | Valve: , predominately a posteriorly directed jet.Tricuspid Valve: The tricuspid valve | | appears structurally normal.Tricuspid Valve: Mild tricuspid regurgitation | | present.Tricuspid Valve: There is no evidence of pulmonary hypertension.Tricuspid Valve: | | The right ventricular systolic pressure (pulmonary artery systolic pressure), as | | measured by Doppler, is 25.65mmHg.Pulmonic Valve: The pulmonic valve was not well | | visualized.Pericardium: There is no pericardial effusion.Pericardium: No pleural | | effusion seen.IVC/Hepatic Veins: The IVC is normal size (1.5-2.5cm) and collapses >50% | | with sniff, consistent with central venous pressures of 5-10mmHg.Aorta: The aortic root, | | ascending aorta and aortic arch are normal. MEASUREMENTS Ao asc: 2.89 | | cmAo Diam: 3.[address] junct: 2.80 cmIVC: 1.75 cmLA Diam: 3.42 cmLA Major: | | 4.79 cmEDV(Teich): 43.14 mlIVSd: 1.21 cmLVIDd: 3.26 cmLVPWd: 1.16 cmLVOT Area: | | 3.63 [id number] Diam: 2.15 cm%FS: 31.01 %EF(Teich): 60.01 %ESV(Teich): 17.25 | | mlLVIDs: 2.25 cmSV(Teich): 25.89 mlRA Major: 4.93 cmRV Major: 7.49 cmRVIDd: | | 1.92 cmTV Humaira Diam: 3.41 cmAo Root: 2.94 cmAo Diam SVals: 3.39 cmLVEF MOD A2C: | | 72.86 %SV MOD A2C: 61.20 mlLVEF MOD A4C: 70.07 %SV MOD A4C: 61.20 mlEF Biplane: | | 71.49 %LVEDV MOD BP: 87.31 mlLVESV MOD BP: 24.88 mlLVEDV MOD A2C: 83.99 mlLVLd | | A2C: 7.98 cmLVEDV MOD A4C: 87.34 mlLVLd A4C: 8.33 cmLVESV MOD A2C: 22.78 mlLVLs | | A2C: 7.27 cmLVESV MOD A4C: 26.14 mlLVLs A4C: 6.98 cmLAESV(A-L): 62.12 mlLAESV | | Index (A-L): 34.90 ml/m2LAAs A2C: 21.48 [id number] A-L A2C: 75.66 mlLALs A2C: 5.17 | | cmLAAs A4C: 16.49 [id number] A-L A4C: 47.67 mlLALs A4C: 4.84 cmRAAs: 16.42 | | [id number] A-L: 46.24 mlRAESV MOD: 45.67 mlRALs: 4.95 cmTAPSE: 2.58 cmAV maxPG: | | 32.14 mmHgAV meanP.42 mmHgAV Vmax: 2.83 m/Makenzie Vmean: 1.93 m/Makenzie VTI: 54.58 | | cmAVA Vmax: 3.16 cm2AVA (VTI): 3.56 [id number] maxP.40 mmHgLVOT meanP.61 | | mmHgLVSI Dopp: 109.19 ml/m2LVSV Dopp: 194.36 mlLVOT Vmax: 2.47 m/sLVOT Vmean: | | 1.61 m/sLVOT VTI: 53.53 cmMV A Prince: 1.09 m/sMV Dec [place]: 2.16 m/s2MV DecT: | | 359.51 msMV E Prince: 0.78 m/sMV E/A Ratio: 0.71MV PHT: 104.25 msMVA By PHT: 2.11 | | [id number] e': 0.04 m/sSeptal E/e': 17.90Lateral e': 0.05 m/sLateral E/e': | | 13.01RAP: 5 mmHgRVSP: 25.64 mmHgTR maxP.64 mmHgTR Vmax: 2.27 m/sS': 0.11 | | m/s Nursing Technician: DHAuthenticated by: Bel Leach MDReport Date/Time: 04-19-2018 | | 17:44:1 IMPRESSION: 1. The left ventricle is normal in size, mild concentric hypertrophy | | and hyperdynamic systolic function EF>70%.2. Systolic anterior motion of the mitral | | valve ARLET, peak/mean LVOT gradient of about 52/37 mmHg.3. The diastolic filling pattern | | indicates impaired relaxation consistent with mild dysfunction (Grade I).4. The right | | ventricle is normal in size and function.5. Moderate mitral regurgitation and milldy | | dilated left atrium.6. Mild tricuspid regurgitation and no pulmonary hypertension.7. | | There is no pericardial effusion. | |IVC: 1.75 cm | |LA Diam: 3.42 cm | |LA Major: 4.79 cm | |EDV(Teich): 43.14 ml | |IVSd: 1.21 cm | |LVIDd: 3.26 cm | |LVPWd: 1.16 cm | |LVOT Area: 3.63 cm2 | |LVOT Diam: 2.15 cm | |%FS: 31.01 % | |EF(Teich): 60.01 % | |ESV(Teich): 17.25 ml | |LVIDs: 2.25 cm | |SV(Teich): 25.89 ml | |RA Major: 4.93 cm | |RV Major: 7.49 cm | |RVIDd: 1.92 cm | |TV Humaira Diam: 3.41 cm | |Ao Root: 2.94 cm | |Ao Diam SVals: 3.39 cm | |LVEF MOD A2C: 72.86 % | |SV MOD A2C: 61.20 ml | |LVEF MOD A4C: 70.07 % | |SV MOD A4C: 61.20 ml | |EF Biplane: 71.49 % | |LVEDV MOD BP: 87.31 ml | |LVESV MOD BP: 24.88 ml | |LVEDV MOD A2C: 83.99 ml | |LVLd A2C: 7.98 cm | |LVEDV MOD A4C: 87.34 ml | |LVLd A4C: 8.33 cm | |LVESV MOD A2C: 22.78 ml | |LVLs A2C: 7.27 cm | |LVESV MOD A4C: 26.14 ml | |LVLs A4C: 6.98 cm | |LAESV(A-L): 62.12 ml | |LAESV Index (A-L): 34.90 ml/m2 | |LAAs A2C: 21.48 cm2 | |LAESV A-L A2C: 75.66 ml | |LALs A2C: 5.17 cm | |LAAs A4C: 16.49 cm2 | |LAESV A-L A4C: 47.67 ml | |LALs A4C: 4.84 cm | |RAAs: 16.42 cm2 | |RAESV A-L: 46.24 ml | |RAESV MOD: 45.67 ml | |RALs: 4.95 cm | |TAPSE: 2.58 cm | |AV maxP.14 mmHg | |AV meanP.42 mmHg | |AV Vmax: 2.83 m/s | |AV Vmean: 1.93 m/s | |AV VTI: 54.58 cm | |MAEGAN Vmax: 3.16 cm2 | |MAEGAN (VTI): 3.56 cm2 | |LVOT maxP.40 mmHg | |LVOT meanP.61 mmHg | |LVSI Dopp: 109.19 ml/m2 | |LVSV Dopp: 194.36 ml | |LVOT Vmax: 2.47 m/s | |LVOT Vmean: 1.61 m/s | |LVOT VTI: 53.53 cm | |MV A Prince: 1.09 m/s | |MV Dec [place]: 2.16 m/s2 | |MV DecT: 359.51 ms | |MV E Prince: 0.78 m/s | |MV E/A Ratio: 0.71 | |MV PHT: 104.25 ms | |MVA By PHT: 2.11 cm2 | |Septal e': 0.04 m/s | |Septal E/e': 17.90 | |Lateral e': 0.05 m/s | |Lateral E/e': 13.01 | |RAP: 5 mmHg | |RVSP: 25.64 mmHg | |TR maxP.64 mmHg | |TR Vmax: 2.27 m/s | |S': 0.11 m/s | | | |Nursing Technician: DAVI | |Authenticated by: Bel Leach MD | |Report Date/Time: 04-19-2018 17:44:1 | | | |IMPRESSION: | |1. The left ventricle is normal in size, mild concentric hypertrophy and hyperdynamic systo lic function EF>70%. | |2. Systolic anterior motion of the mitral valve ARLET, peak/mean LVOT gradient of about 52/37 mmHg. | |3. The diastolic filling pattern indicates impaired relaxation consistent with mild dysfunc tion (Grade I). | |4. The right ventricle is normal in size and function. | |5. Moderate mitral regurgitation and milldy dilated left atrium. | |6. Mild tricuspid regurgitation and no pulmonary hypertension. | |7. There is no pericardial effusion. | + + documented in this encounter Visit Diagnoses Not on filedocumented in this encounter"
--- OUTSIDE RECORDS SUMMARY | ~2019-04-30 | XMS | Encounter Summary ---
Demographics + + + | Address | [address] | | | [place] [address] | + + + | Home Phone | | + + + | Preferred Language | Unknown | + + + | Marital Status | Single | + + + | Islam Affiliation | 1013 | + + + | Race | Unknown | + + + | Ethnic Group | Unknown | + + + Author + + + | Author | [facility] | | | and [place] | + + + | Organization | [facility] | | [...] Team Providers + +------+ + | [employer] Name | Role | Phone | + +------+ + | FeliciaDarrylShmuelnadine BRICENO | PCP | | + +------+ + Reason for Visit + + + | Reason | Comments | + + + | Sexually Transmitted | | | Disease Check | | + + + | Psychiatric | | | Evaluation | | + + + Encounter Details +--------+ + + + + | Date | Type | Department | Care Team | Description | +--------+ + + + + | 08/14/ | Emergency | [facility] | Chan Gray, | Concern about STD in | | 2017 | | [facility] | [place] [address] | female without | | | | EM[facility] | [place] [address] | diagnosis (Primary | | | | [address] | [phone] | Dx); Urinary tract | | | | [place], [place] | | infection without | | | | [address] | | hematuria, site | | | | [phone] | | unspecified | +--------+ + + + + Social [...] + + + | Blood Pressure | 111/67 | 08/13/2016 9:07 PM | | | | | PDT | | + + + + + | Pulse | 80 | 08/13/2016 9:07 PM | | | | | PDT | | + + + + + | Temperature | 37.4 C (99.3 F) | 08/13/2016 9:07 PM | | | | | PDT | | + + + + + | Respiratory Rate | 16 | 08/13/2016 9:07 PM | | | | | PDT | | + + + + + | Oxygen Saturation | 97% | 08/13/2016 9:07 PM | | | | | PDT | | + + + + + | Inhaled Oxygen | - | - | | | Concentration | | | | + + + + + | Weight | 50.8 kg (112 lb) | 08/13/2016 9:07 PM | | | | | PDT | | + + + + + | Height | 167.6 cm (5' 6") | 08/13/2016 9:07 PM | | | | | PDT | | + + + + + | Body Mass Index | 18.08 | 08/13/2016 9:07 PM | | | | | PDT | | + + + + + documented in this encounter Discharge Instructions Instructions Chan Gray [place] - . Stable at discharge. 2. Return in 3 days to obtain lab results information documented in this encounter Medications at Time [...] + + + +---------+ + + | nitrofurantoin | Take 1 capsule by | 14 | 0 | 08/15/19 | | | (MACROBID) 100 mg | mouth 2 times daily | capsule | | 17 | 7 | | capsuleIndications: | for 7 days. | | | | | | Uncomplicated | Indications: Simple | | | | | | Urinary Tract | Infection of the | | | | | | Infection | Urinary Tract | | | | | + + [...] [place] | | | | | | [id number] | | | | | | | | +--------+---------+ + + + documented as of this encounter Procedures + +--------+ + + + | Procedure Name | Priori | Date/Time | Associated Diagnosis | Comments | | | ty | | | | + +--------+ + + + | TREPONEMA PALLIDUM | Routin | 08/14/2016 | | Results for this | | AB, REFLEX | e | 1:46 AM | | procedure are in the | | | | PDT | | results section. | + +--------+ + + + | HIV TYPE 1 AND 2 AB | Routin | 08/14/2016 | | Results for this | | SCREEN, RAPID | e | 1:46 AM | | procedure are in the | | | | PDT | | results section. | + +--------+ + + + | DRUGS OF ABUSE, | STAT | 08/14/2016 | | Results for this | | SCREEN, URINE | | 1:46 AM | | procedure are in the | | | | PDT | | results section. | + +--------+ + + + | URINALYSIS WITH | STAT | 08/14/2016 | | Results for this | | MICROSCOPIC | | 1:46 AM | | procedure are in the | | | | PDT | | results section. | + +--------+ + + + | CBC WITH | STAT | 08/14/2016 | | Results for this | | DIFFERENTIAL | | 1:46 AM | | procedure are in the | | | | PDT | | results section. | + +--------+ + + + | C. TRACHOMATIS AND | STAT | 08/14/2016 | | Results for this | | N. GONORRHOEAE, NAAT | | 1:46 AM | | procedure are in the | | (APTIMA) | | PDT | | results section. | + +--------+ + + + | COMPREHENSIVE | STAT | 08/14/2016 | | Results for this | | METABOLIC PANEL | | 1:46 AM | | procedure are in the | | | | PDT | | results section. | + +--------+ + + + documented in this encounter Results Treponema Pallidum Ab, Reflex (08/14/2016 1:46 AM PDT) + + + + + + | Component | Value | Ref Range | Performed | Pathologist | | | | | At | Signature | + + + + + + | Treponema | NegativeComment: | Negative | [facility] | | | Pallidum Ab | Negative for syphilis | | [facility] | | | Total | antibodies.Performed at | | HEART | | | | [facility] | | MEDICAL | | | | [facility], | | CENTER | | | | [address] [facility], | | LABORATORY | | | | [place] [address] | | | | + + + + + + + + | Specimen | + + | Blood specimen | | (specimen) | + + + + + + + | Performing | Address | City/State/Zipcode | Phone Number | | Organization | | | | + + + + + | [facility] | [address] | [place] [address] | | | [facility] | | | | | LABORATORY | | | | + + + + + C. trachomatis and N. gonorrhoeae, NAAT (APTIMA) (08/14/2016 1:46 AM PDT) + + + + + + | Component | Value | Ref Range | Performed | Pathologist | | | | | At | Signature | + + + + + + | Specimen | Specimen type unknown | | [facility] | | | Source | | | [facility] | | | | | | HEART | | | | | | MEDICAL | | | | | | CENTER | | | | | | LABORATORY | | + + + + + + | Chlamydia | Not DetectedComment: A | Not Detected | [facility] | | | trachomatis | result of Not Detected | | [facility] | | | DNA PCR | does not rule out the | | HEART | | | | presence of PCR | | MEDICAL | | | | inhibitors present in | | CENTER | | | | the specimen or levels | | LABORATORY | | | | of Chlamydia trachomatis | | | | | | below the limit of | | | | | | detection for this | | | | | | assay. | | | | + + + + + + | Neisseria | Detected (A)Comment: | Not Detected | [facility] | | | gonorrhoeae | Results of this test | | [facility] | | | DNA PCR | should be interpreted in | | HEART | | | | conjunction with | | MEDICAL | | | | laboratory and clinical | | CENTER | | | | data.The CDC recommends | | LABORATORY | | | | retesting patients three | | | | | | months following | | | | | | treatment to rule out | | | | | | reinfection. If this is | | | | | | a notifiable condition | | | | | | in your state, as the | | | | | | provider, please ensure | | | | | | you follow all | | | | | | applicable local and | | | | | | state reporting | | | | | | requirements. Performed | | | | | | at [facility] | | | | | | Medical Laboratories, | | | | | | [address], | | | | | | [place] [address] | | | | + + + + + + + + | Specimen | + + | Urine specimen | | (specimen) - Urine, | | Clean Catch | + + + + + + + | Performing | Address | City/State/Zipcode | Phone Number | | Organization | | | | + + + + + | [facility] | [address] | [place] [address] | | | [facility] | | | | | LABORATORY | | | | + + + + + HIV Type 1 and 2 Ab Screen, Rapid (08/14/2016 1:46 AM PDT) + + + + + + | Component | Value | Ref Range | Performed | Pathologist | | | | | At | Signature | + + + + + + | HIV 1 Ab | Nonreactive for HIV1 and | Nonreactive for | [facility] | | | IgG | HIV2 antibodies and | HIV1 and HIV2 | [facility] | | | | HIV1 antigen by rapid | antibodies and | HEART | | | | screening. | HIV1 ant | MEDICAL | | | | | [...] + + | [facility] | [address] | [place] [address] | | | [facility] | | | | | LABORATORY | | | | + + + + + Urinalysis With Microscopic (08/14/2016 1:46 AM PDT) + + + + + + | Component | Value | Ref Range | Performed | Pathologist | | | | | At | Signature | + + + + + + | Color | Yellow | | [facility] | | | | | [facility] | | | | | | HEART | | | | | | MEDICAL | | | | | | CENTER | | | | | | LABORATORY | | + + + + + + | Clarity | Hazy | | [facility] | | | | | [facility] | | | | | | HEART | | | | | | MEDICAL | | | | | | CENTER | | | | | | LABORATORY | | + + + + + + | Glucose, | Negative | Negative mg/dL | [facility] | | | Urine | | | [facility] | | | | | | HEART | | | | | | MEDICAL | | | | | | CENTER | | | | | | LABORATORY | | + + + + + + | Bilirubin, | Negative | Negative | [facility] | | | Urine | | | [facility] | | | | | | HEART | | | | | | MEDICAL | | | | | | CENTER | | | | | | LABORATORY | | + + + + + + | Ketones, | Trace (A) | Negative mg/dL | [facility] | | | Urine | | | [facility] | | | | | | HEART | | | | | | MEDICAL | | | | | | CENTER | | | | | | LABORATORY | | + + + + + + | Specific | 1.020 | 1.001 - 1.030 | [facility] | | | [place] | | | [facility] | | | | | | HEART | | | | | | MEDICAL | | | | | | CENTER | | | | | | LABORATORY | | + + + + + + | pH, Urine | 6.0 | 5.0 - 7.5 | [facility] | | | | | | [facility] | | | | | | HEART | | | | | | MEDICAL | | | | | | CENTER | | | | | | LABORATORY | | + + + + + + | Protein, | Negative | Negative mg/dL | [facility] | | | Urine | | | [facility] | | | | | | HEART | | | | | | MEDICAL | | | | | | CENTER | | | | | | LABORATORY | | + + + + + + | Urobilinoge | <2.0 | <2.0 mg/dL | [facility] | | | n, Urine | | | [facility] | | | | | | HEART | | | | | | MEDICAL | | | | | | CENTER | | | | | | LABORATORY | | + + + + + + | Nitrite, | Negative | Negative | [facility] | | | Urine | | | [facility] | | | | | | HEART | | | | | | MEDICAL | | | | | | CENTER | | | | | | LABORATORY | | + + + + + + | Blood, | Negative | Negative | [facility] | | | Urine | | | [facility] | | | | | | HEART | | | | | | MEDICAL | | | | | | CENTER | | | | | | LABORATORY | | + + + + + + | Leukocyte | Moderate (A) | Negative | [facility] | | | Esterase, | | | [facility] | | | Urine | | | HEART | | | | | | MEDICAL | | | | | | CENTER | | | | | | LABORATORY | | + + + + + + | WBC UA | 32 (H) | <6 /hpf | [facility] | | | | | | [facility] | | | | | | HEART | | | | | | MEDICAL | | | | | | CENTER | | | | | | LABORATORY | | + + + + + + | RBC UA | 1 | <6 /hpf | [facility] | | | | | | [facility] | | | | | | HEART | | | | | | MEDICAL | | | | | | CENTER | | | | | | LABORATORY | | + + + + + + | BACTERIA UA | Present | /hpf | [facility] | | | | | | [facility] | | | | | | HEART | | | | | | MEDICAL | | | | | | CENTER | | | | | | LABORATORY | | + + + + + + | SQUAMOUS | FewComment: Healthy | /lpf | [facility] | | | EPITHELIAL | individuals show up to | | [facility] | | | UA | FEW squamous epithelial | | HEART | | | | cells in the urine, | | MEDICAL | | | | depending on collection | | CENTER | | | | method. | | LABORATORY | | + + + + + + | MUCUS UA | Present (A) | None seen /lpf | [facility] | | | | | | [facility] | | | | | | HEART | | | | | | MEDICAL | | | | | | CENTER | | | | | | LABORATORY | | + + + + + + + + | Specimen | + + | Urine specimen | | (specimen) - Urine, | | Clean Catch | + + + + + + + | Performing | Address | City/State/Zipcode | Phone Number | | Organization | | | | + + + + + | [facility] | [address] | [place] [address] | | | [facility] | | | | | LABORATORY | | | | + + + + + Drugs of Abuse, Screen, Urine (08/14/2016 1:46 AM PDT) + + + + + + | Component | Value | Ref Range | Performed | Pathologist | | | | | At | Signature | + + + + + + | Amphetamine | Negative | Negative | [facility] | | | Screen, | | | [facility] | | | Urine | | | HEART | | | | | | MEDICAL | | | | | | CENTER | | | | | | LABORATORY | | + + + + + + | Methampheta | Negative | Negative | [facility] | | | mine | | | [facility] | | | Screen, | | | HEART | | | Urine | | | MEDICAL | | | | | | CENTER | | | | | | LABORATORY | | + + + + + + | Barbiturate | Negative | Negative | [facility] | | | s Screen, | | | [facility] | | | Urine | | | HEART | | | | | | MEDICAL | | | | | | CENTER | | | | | | LABORATORY | | + + + + + + | Benzodiazep | Negative | Negative | [facility] | | | luis | | | [facility] | | | Screen, | | | HEART | | | Urine | | | MEDICAL | | | | | | CENTER | | | | | | LABORATORY | | + + + + + + | Cocaine | Negative | Negative | [facility] | | | Metabolites | | | [facility] | | | , Ur | | | HEART | | | | | | MEDICAL | | | | | | CENTER | | | | | | LABORATORY | | + + + + + + | Methadone | Negative | Negative | [facility] | | | Screen, | | | [facility]CR[facility] | | | Urine | | | HEART | | | | | | MEDICAL | | | | | | CENTER | | | | | | LABORATORY | | + + + + + + | Opiate | Negative | Negative | [facility] | | | Screen, | | | [facility] | | | Urine | | | HEART | | | | | | MEDICAL | | | | | | CENTER | | | | | | LABORATORY | | + + + + + + | Phencyclidi | Negative | Negative | [facility] | | | ne Screen, | | | [facility]CR[facility] | | | Urine | | | HEART | | | | | | MEDICAL | | | | | | CENTER | | | | | | LABORATORY | | + + + + + + | Tricyclics, | Negative | Negative | [facility] | | | UR | | | [facility] | | | | | | HEART | | | | | | MEDICAL | | | | | | CENTER | | | | | | LABORATORY | | + + + + + + | Cannabinoid | Positive (A)Comment: | Negative | [facility] | | | s Screen, | This entire battery is | | [facility] | | | Urine | for screening purposes | | HEART | | | | only. Results are not | | MEDICAL | | | | confirmed.Please note: | | CENTER | | | | Some medications cause | | LABORATORY | | | | positive results with | | | | | | any or all tested drugs | | | | | | in this battery.Results | | | | | | from any unconfirmed | | | | | | drug in this screening | | | | | | battery should not be | | | | | | used for legal purposes. | | | | | | | | | | + + + + + + + + | Specimen | + + | Urine specimen | | (specimen) - Urine, | | Clean Catch | + + + + + + + | Performing | Address | City/State/Zipcode | Phone Number | | Organization | | | | + + + + + | [facility] | [address] | [place] [address] | | | [facility] | | | | | LABORATORY | | | | + + + + + Comprehensive Metabolic Panel (08/14/2016 1:46 AM PDT) + + + + + + | Component | Value | Ref Range | Performed | Pathologist | | | | | At | Signature | + + + + + + | Na | 137 | 135 - 145 | [facility] | [...] + + + + | Cl | 103 | 99 - 109 mmol/L | [facility] | | | | | | [facility] | | | | | | HEART | | | | | | MEDICAL | | | | | | CENTER | | | | | | LABORATORY | | + + + + + + | CO2 | 26 | 21 - 28 mmol/L | [facility] | | | | | | [facility] | | | | | | HEART | | | | | | MEDICAL | | | | | | CENTER | | | | | | LABORATORY | | + + + + + + | Glucose | 73Comment: [place] | 65 - 99 mg/dL | [facility] [...] + + + + | BUN | 10 | 8 - 25 mg/dL | [facility] | | | | | | [facility] | | | | | | HEART | | | | | | MEDICAL | | | | | | CENTER | | | | | | LABORATORY | | + + + + + + | Creatinine | 0.61Comment: IDMS | 0.50 - 1.00 | [facility] | | | | traceable creatinine | mg/dL | [facility] | | | | | | HEART | | | | | | MEDICAL | | | | | | CENTER | | | | | | LABORATORY | | + + + + + + | Calcium | 8.7 | 8.5 - 10.2 | [facility] | | | | | mg/dL | [facility] | | | | | | HEART | | | | | | MEDICAL | | | | | | CENTER | | | | | | LABORATORY | | + + + + + + | Total | 5.5 (L) | 6.1 - 8.4 g/dL | [facility] | | | Protein | | | [facility] | | | | | | HEART | | | | | | MEDICAL | | | | | | CENTER | | | | | | LABORATORY | | + + + + + + | Albumin | 3.7 | 3.5 - 5.0 g/dL | [facility] [...] + + + + | Alkaline | 36 | 35 - 115 U/L | [facility] | | | Phosphatase | | | [facility] | | | | | | HEART | | | | | | MEDICAL | | | | | | CENTER | | | | | | LABORATORY | | + + + + + + | AST | 23 | 10 - 45 U/L | [facility] | | | | | | [facility] | | | | | | HEART | | | | | | MEDICAL | | | | | | CENTER | | | | | | LABORATORY | | + + + + + + | ALT | 16 | 10 - 65 U/L | [facility] | | | | | | [facility] | | | | | | HEART | | | | | | MEDICAL | | | | | | CENTER | | | | | | LABORATORY | | + + + + + + | Anion Gap | 8 | 5 - 16 mmol/L | [facility] [...] | | | | failure.For | | [place] | | | | Americans, multiply the [...] + + | [facility] | [address] | [place] [address] | | | [facility] | | | | | LABORATORY | | | | + + + + + CBC with Differential (08/14/2016 1:46 AM PDT) + + + + + + | Component | Value | Ref Range | Performed | Pathologist | | | | | At | Signature | + + + + + + | WBC | 6.1 | 3.8 - 11.0 K/uL | [facility] | | | | | | [facility] | | | | | | HEART | | | | | | MEDICAL | | | | | | CENTER | | | | | | LABORATORY | | + + + + + + | RBC | 4.14 | 3.70 - 5.10 | [facility] | | | | | M/uL | [facility] | | | | | | HEART | | | | | | MEDICAL | | | | | | CENTER | | | | | | LABORATORY | | + + + + + + | Hemoglobin | 12.5 | 11.3 - 15.5 | [facility] | | | | | g/dL | [facility] | | | | | | HEART | | | | | | MEDICAL | | | | | | CENTER | | | | | | LABORATORY | | + + + + + + | Hematocrit | 37.1 | 34.0 - 46.0 % | [facility] | | | | | | [facility] | | | | | | HEART | | | | | | MEDICAL | | | | | | CENTER | | | | | | LABORATORY | | + + + + + + | MCV | 89.5 | 80.0 - 100.0 fL | [facility] [...] + + + + | MCHC | 33.6 | 32.0 - 35.5 | [facility] | | | | | g/dL | [facility] | | | | | | HEART | | | | | | MEDICAL | | | | | | CENTER | | | | | | LABORATORY | | + + + + + + | RDW-CV | 14.1 | 11.0 - 15.5 % | [facility] | | | | | | [facility] | | | | | | HEART | | | | | | MEDICAL | | | | | | CENTER | | | | | | LABORATORY | | + + + + + + | Platelet | 180 | 150 - 400 K/uL | [facility] [...] + + + + | % | 54.4 | 40.0 - 75.0 % | [facility] | | | Neutrophils | | | [facility] | | | | | | HEART | | | | | | MEDICAL | | | | | | CENTER | | | | | | LABORATORY | | + + + + + + | % | 37.8 | 15.0 - 48.0 % | [facility] | | | Lymphocytes | | | [facility] | | | | | | HEART | | | | | | MEDICAL | | | | | | CENTER | | | | | | LABORATORY | | + + + + + + | % Monocytes | 6.2 | 0.0 - 12.0 % | [facility] | | | | | | [facility] | | | | | | HEART | | | | | | MEDICAL | | | | | | CENTER | | | | | | LABORATORY | | + + + + + + | % | 0.9 | 0.0 - 7.0 % | [facility] | | | Eosinophils | | | [facility] | | | | | | HEART | | | | | | MEDICAL | | | | | | CENTER | | | | | | LABORATORY | | + + + + + + | % Basophils | 0.7 | 0.0 - 2.0 % | [facility] | | | | | | [facility] | | | | | | HEART | | | | | | MEDICAL | | | | | | CENTER | | | | | | LABORATORY | | + + + + + + | Absolute | 3.30 | 1.90 - 7.40 | [facility] | | | Neutrophils | | K/uL | [facility] | | | | | | HEART | | | | | | MEDICAL | | | | | | CENTER | | | | | | LABORATORY | | + + + + + + | Absolute | 2.30 | 1.00 - 3.90 | [facility] | | | Lymphocytes | | K/uL | [facility] | | | | | | HEART | | | | | | MEDICAL | | | | | | CENTER | | | | | | LABORATORY | | + + + + + + | Absolute | 0.40 | 0.00 - 0.80 | [facility] | | | Monocytes | | K/uL | [facility] | | | | | | HEART | | | | | | MEDICAL | | | | | | CENTER | | | | | | LABORATORY | | + + + + + + | Absolute | 0.10 | 0.00 - 0.50 | [facility] | | | Eosinophils | | K/uL | [facility] | | | | | | HEART | | | | | | MEDICAL | | | | | | CENTER | | | | | | LABORATORY | | + + + + + + | Absolute | 0.00 | 0.00 - 0.10 | [facility] | [...] + + | [facility] | [address] | [place] [address] | | | [facility] | | | | | LABORATORY | | | | + + + + + documented in this encounter Visit Diagnoses + + | Diagnosis | + + | Concern about STD in female without diagnosis - Primary Person with feared complaint | | in whom no diagnosis was made | + + | Urinary tract infection without hematuria, site unspecified | + + documented in this encounter Administered Medications + +--------+ + +------+------+ | Medication Order | MAR | Action | Dose | Rate | Site | | | Action | Date | | | | + +--------+ + +------+------+ | azithromycin (ZITHROMAX) tablet | Given | 08/15/19 | 1,000 mg | | | | 1,000 mg 1,000 mg, Oral, ONCE, | | 17 6:06 | | | | | 08/14/16 at 0605, For 1 dose, | | AM PDT | | | | | Indications: Chlamydia Infection | | | | | | + +--------+ + +------+------+ +---+---+ | | | +---+---+ + +-------+ +------+---+---+ | LORazepam (ATIVAN) tablet 1 mg | Given | 08/15/19 | 1 mg | | | | 1 mg, Oral, ONCE, 08/14/16 at | | 17 3:24 | | | | | 0325, For 1 dose | | AM PDT | | | | + +-------+ +------+---+---+ +---+---+ | | | +---+---+ documented in this encounter
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
--- OUTSIDE RECORDS SUMMARY | ~2019-04-30 | XMS | Encounter Summary ---
Demographics + + + | Address | [address] | | | [place] [address] | + + + | Home Phone | | + + + | Preferred Language | Unknown | + + + | Marital Status | Single | + + + | Christianity Affiliation | 1013 | + + + | Race | Unknown | + + + | Ethnic Group | Unknown | + + + Author + + + | Author | [facility] | | | and [place] | + + + | Organization | [facility] | | | [...] Team Providers + +------+ + | Care Rn Transfer Name | Role | Phone | + +------+ + | Shmuel Duarte | PCP | | + +------+ + Encounter Details +--------+ + + + + | Date | Type | Department | Care Team | Description | +--------+ + + + + | 04/21/ | Hospital | [facility] | Unknown, | | | 2016 | Encounter | [facility] | MD Matt | | | | | LABORATORY [address] | [phone] | | | | | [address] | | | | | | [place], [place] | | | | | | [address] | | | | | | [phone] | | | +--------+ + + + [...] + + documented as of this encounter Medications at Time of Discharge [...] Nasal | 16 g | 0 | 08/19/20 | | | (FLONASE) 50 | route [...] | | | | | | [place] | | | | | | [address] | | | | | | | | +--------+---------+ + + + documented as of this encounter Procedures + +--------+ + + + | Procedure Name | Priori | Date/Time | Associated Diagnosis | Comments | | | ty | | | | + +--------+ + + + | CBC WITH | Routin | 04/21/2017 | | Results for this | | DIFFERENTIAL | e | 12:00 PM | | procedure are in the | | | | PST | | results section. | + +--------+ + + + documented in this encounter Results CBC with Differential (04/21/2017 12:00 PM PST) + + + + + + | Component | Value | Ref Range | Performed | Pathologist | | | | | At | Signature | + + + + + + | WBC | 6.2 | 3.8 - 11.0 K/uL | [facility] | | | | | [facility] | | | | | | [facility] | | + + + + + + | RBC | 3.77 | 3.70 - 5.10 | [facility] | | | | | M/uL | [facility] | [facility] | | | | | | [facility]ORY | | + + + + + + | Hemoglobin | 11.6 | 11.3 - 15.5 | [facility] | | | | | g/dL | [facility] | [facility] | [facility] | | | | | | [facility] | | + + + + + + | Hematocrit | 34.1 | 34.0 - 46.0 % | [facility] | | | | | | [facility] | | | | | | [facility] | | + + + + + + | MCV | 90.4 | 80.0 - 100.0 fL | [facility] | | | | | | [facility] | | | | | | [facility] | | + + + + + + | MCH | 30.8 | 27.0 - 34.0 pg | [facility] | | | | | | [facility] | | | | | | [facility] | | + + + + + + | MCHC | 34.1 | 32.0 - 35.5 | [facility] | | | | | g/dL | [facility] | [facility] | [facility] | | | | | | [facility] | | + + + + + + | RDW-CV | 13.8 | 11.0 - 15.5 % | [facility] | | | | | | [facility] | | | | | | [facility] | | + + + + + + | Platelet | 153 | 150 - 400 K/uL | [facility] | | | Count | | | [facility] | [facility] | | | | | | [facility] | | + + + + + + | Differentia | Automated | | [facility] | | | l Type | | | [facility] | | | | | | [facility] | | + + + + + + | % | 64.3 | 40.0 - 75.0 % | [facility] | | | Neutrophils | | | [facility] | | | | | | [facility] | | + + + + + + | % | 23.0 | 15.0 - 48.0 % | [facility] | | | Lymphocytes | | | [facility] | | | | | | [facility] | | + + + + + + | % Monocytes | 10.8 | 0.0 - 12.0 % | [facility] | | | | | | [facility] | | | | | | [facility] | | + + + + + + | % | 1.2 | 0.0 - 7.0 % | [facility] | | | Eosinophils | | | [facility] | | | | | | [facility] | | + + + + + + | % Basophils | 0.7 | 0.0 - 2.0 % | [facility] | | | | | | [facility] | | | | | | [facility] | | + + + + + + | % nRBC | 0.0 | /100 WBCs | [facility] | | | | | | [facility] | | | | | | [facility] | | + + + + + + | Absolute | 4.00 | 1.90 - 7.40 | [facility] | | | Neutrophils | | K/uL | [facility] | | | | | | [facility] | | + + + + + + | Absolute | 1.40 | 1.00 - 3.90 | [facility] | | | Lymphocytes | | K/uL | [facility] | | | | | | [facility] | | + + + + + + | Absolute | 0.70 | 0.00 - 0.80 | [facility] | | | Monocytes | | K/uL | [facility] | | | | | | [facility] | | + + + + + + | Absolute | 0.10 | 0.00 - 0.50 | [facility] | | | Eosinophils | | K/uL | [facility] | | | | | | [facility] | | + + + + + + | Absolute | 0.00 | 0.00 - 0.10 | [facility] | | | Basophils | | K/uL | [facility] | | | | | | [facility] | | | | | | [facility] | | + + + + + + + + | Specimen | + + | | + + + + + + + | Performing | Address | City/State/Zipcode | Phone Number | | Organization | | | | + + + + + | [facility] | [address] | [place] [address] | | | [facility] | | | | | LABORATORY | | | | + + + + + documented in this encounter Visit Diagnoses Not on filedocumented in this encounter"
--- OUTSIDE RECORDS SUMMARY | ~2019-04-30 | XMS | Encounter Summary ---
Demographics + + + | Address | [address] | | | [place] [address] | + + + | Home Phone | | + + + | Preferred Language | Unknown | + + + | Marital Status | Single | + + + | Confucianist Affiliation | [id number] | + + + [...] Team Providers + +------+ + | Care Die Forger Name | Role | Phone | + +------+ + | Rachel Duarte [employer] | PCP | | + +------+ + [...] 2017 | | [facility] | [employer] [address], | dysfunction, | | | | [facility] | - Emergency Dept | unspecified | | | | [address] | [place] [address] | laterality (Primary | | | | [place] | [phone] | Dx); Gingivitis | | | | [address] | | | | | | [phone] | | | +--------+ + + + [...] sent through Care Everywhere.EAR PROBLEMS, Dione GILLIAM (ARGENTINE)documented in this encounter Medications at Time of [...] [place]IZ[place] | | | | | | [id number] | | | | | | | [...] A?MRN: | | | | | | [id number] | | | [id number] | | | his | | | [...]
--- OUTSIDE RECORDS SUMMARY | ~2019-04-30 | XMS | Encounter Summary ---
Demographics + + + | Address | [address] | | | [place] [address] | + + + | Home Phone | | + + + | Preferred Language | Unknown | + + + | Marital Status | Single | + + + | Tenriism Affiliation | 1013 | + + + | Race | Unknown | + + + | Ethnic Group | Unknown | + + + Author + + + | Author | [facility] | | | and [place] | + + + | Organization | [facility] | | | [...] Team Providers + +------+ + | [place] Library Director Name | Role | Phone | + +------+ + | Shmuel Duarte | PCP | | + +------+ + Encounter Details +--------+ + + + + | Date | Type | Department | Care Team | Description | +--------+ + + + + | 04/20/ | Hospital | [facility] | Provider Not, In | | | 2017 | Encounter | [facility] | [facility]ly [facility] | | | | | LABORATORY [address] | Health and Service | | | | | [facility] | Yang Andersen, | | | | | [place], [place] | [address] [facility] | | | | | [address] | [place], [place] | | | | | [phone] | [address] | | | | | | [phone] | | | | | | | [...] | 2020 | Visit | | [address] | | | | | | [place] | | | | | | [address] | | | | | | | | +--------+---------+ + + + documented as of this encounter Procedures + +--------+ + + + | Procedure Name | Priori | Date/Time | Associated Diagnosis | Comments | | | ty | | | | + +--------+ + + + | URINALYSIS WITH | Routin | 04/20/2017 | | Results for this | | MICROSCOPIC IF | e | 8:02 AM | | procedure are in the | | INDICATED | | PST | | results section. | + +--------+ + + + | URINALYSIS, | Routin | 04/20/2017 | | Results for this | | MICROSCOPIC ONLY | e | 8:02 AM | | procedure are in the | | | | PST | | results section. | + +--------+ + + + documented in this encounter Results Urinalysis, Microscopic Only (04/20/2017 8:02 AM PST) + + + + + + | Component | Value | Ref Range | Performed | Pathologist | | | | | At | Signature | + + + + + + | WBC UA | 0 to 5 | 0 - 5 /hpf | [facility] | | | | [facility] | | + + + + + + | RBC UA | 0 to 5 | 0 - 5 /hpf | [facility] | | | | | | [facility] | | + + + + + + | Epithelial | FewComment: Squamous | /hpf | [facility] | | | Cells | | [facility] | | | | | | LAB[facility]ATORY | | + + + + + + | BACTERIA UA | Few | /hpf | [facility] | | | | | | [facility] | | + + + + + + | CASTS | None seen | /lpf | [facility] | | | | | | [facility] | | + + + + + + | CRYSTAL UA | None seen | /hpf | [facility] | | | [...] + + | [facility] | [address] [facility] | [place] [address] | | | [facility] | | | | | LABORATORY | | | | + + + + + Urinalysis with Microscopic if Indicated (04/20/2017 8:02 AM PST) + + + + + + | Component | Value | Ref Range | Performed | Pathologist | | | | | At | Signature | + + + + + + | COLLECTION | Urine, Clean Catch | | [facility] | | | METHOD [facility] | | [facility] | | | [...] + + + + | Clarity | Clear | | [facility] | | | | | | [facility] | | + + + + + + | Glucose, | Negative | Negative mg/dL | [facility] | | | Urine | | [facility] | | | | | | [facility] | | + + + + + + | Bilirubin, | Negative | Negative | [facility] | | | Urine | | [facility] | | | | | | [facility] | | + + + + + + | Ketones, | Negative | Negative mg/dL | [facility] | | | Urine | | [facility] | | | | | | [facility]AT[facility] | | + + + + + + | Specific | <1.005 | 1.002 - 1.030 | [facility] | | | [place] | | | [facility] | | | [...] | | | Urine | | | [facility] | | [facility] | | | | | | [facility]AT[facility] | | + + + + + + | Urobilinoge | 0.2 | 0.2 - 1.0 mg/dL | [facility] | | | n, Urine | | | [facility] | | | | | | [facility]AT[facility] | | + + + + + + | Nitrite, | Negative | Negative | [facility] | | | Urine | | [facility] | | | | | | [facility]ATORY | | + + + + + + | Blood, | Trace (A) | Negative | [facility] | | | Urine | | | [facility] | | | | | | LAB[facility]ATORY | | + + + + + + | Leukocyte | Negative | Negative | [facility] | | | Esterase, | | | [facility] | | | Urine | | | [facility] | | | [...] + + + | [facility] | [address] [facility] | [place] [address] | | | [facility] | | | | | LABORATORY | | | | + + + + + documented in this encounter Visit Diagnoses Not on filedocumented in this encounter"
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
--- OUTSIDE RECORDS SUMMARY | ~2019-04-30 | XMS | Clinical Summary ---
Demographics + + + | Address | [address] | | | [place] [address] | + + + | Home Phone [...] + + + | Author | [facility] | | | and [place] | + + + | Organization | [facility] | | [...] Team Providers + +------+ + | Care Gas Charger Name | Role | Phone | + +------+ + | Angelika Jonathan Lee LIAM | PCP | | + +------+ + Allergies + + + + + + | Active Allergy | Reactions | Severity | Noted | Comments | | | | | Date | | + + + + + + | Lorazepam | | | 09/20/19 | | | | | | 17 | | + + + + + + | Codeine | | | 03/27/20 | | | | | | 16 | | + + + + + + | Haloperidol | | | 03/27/20 | | | | | | 16 | | + + + + + + Medications + + + +---------+------+------+-------+ | Medication | Sig | Dispensed | Refills | Star | End | Statu | | | | | | t | Date | s | | | | | | Date | | | + + + +---------+------+------+-------+ | ibuprofen | Take 1 tablet by | 30 | 0 | 08/1 | | Activ | | (ADVIL,MOTRIN) 600 | mouth every 6 hours | tablet | | 9/20 | | e | | MG tablet | as needed for Pain. | | | 17 | | | + + + +---------+------+------+-------+ | alendronate | | | 0 | 09/1 | | Activ | | (FOSAMAX) 70 mg | | | | 3/20 | | e | | tablet | | | | 17 | | | + + + +---------+------+------+-------+ | divalproex | Take 5 tablets by | 150 | 0 | 04/2 | | Activ | | (DEPAKOTE ER) 250 mg | mouth Daily. | tablet | | 3/20 | | e | | 24 hr tablet | | | | 18 | | | + + + +---------+------+------+-------+ | levothyroxine | Take 1 tablet by | 30 | 0 | 05/0 | | Activ | | (SYNTHROID) 50 mcg | mouth every morning | tablet | | 9/20 | | e | | tablet | (before breakfast). | | | 18 | | | + + + +---------+------+------+-------+ | metoprolol | take 1 tablet by | 90 | 3 | 03/30 | | Activ | | succinate | mouth once daily | tablet | | 320 | | e | | (TOPROL-XL) 50 mg 24 | | | | 19 | | | | hr tablet | | | | | | | + + + +---------+------+------+-------+ | metoprolol | take 1 tablet by | 30 | 1 | 09/0 | 11/1 | Disco | | succinate | mouth once daily | tablet | | 9/20 | 2/20 | ntinu | | (TOPROL-XL) 50 mg 24 | | | | 19 | 19 | ed | | hr tablet | | | | | | (Reor | | | | | | | | liberty) | + + + +---------+------+------+-------+ Active Problems No known active problems Encounters +--------+--------+ + + + | Date | Type | Specialty | Care Team | Description | +--------+--------+ + + + | 04/10/ | Refill | Cardiology | Tali Manzo DO | Medication Refill | | 2019 | | | | | +--------+--------+ + + + | 02/03/ | Refill | Cardiology | Tali Manzo DO | Medication Refill | | 2019 | | | | | +--------+--------+ + + + from Last 3 Months Family History + + +------+ + | Medical History | Relation | Name | Comments | + + +------+ + | Cancer | Father | | bladder | + + +------+ + + +------+ + + | Relation | Name | Status | Comments | + +------+ + + | Father | | | | + +------+ + + | Father [...] +---------+ + | No | | | Alcoholic | | | | | Drinks/day: | | | | | Socially, but now in | | | | | [employer] program | | | | | and is not allowed. | + + +---------+ [...] recent travel history available. | + + Last Filed Vital Signs + + + + + | Vital Sign | Reading | Time Taken | Comments | + + + + + | Blood Pressure | 118/66 | 01/18/2019 2:09 PM | | | | | PDT | | + + + + + | Pulse | 66 | 01/18/2019 2:09 PM | | | | | PDT | | + + + + + | Temperature | 36.9 C (98.5 F) | 09/19/2017 2:40 PM | | | | | PDT | | + + + + + | Respiratory Rate | 16 | 09/19/2017 2:40 PM | | | | | PDT | | + + + + + | Oxygen Saturation | 98% | 01/18/2019 2:09 PM | | | | | PDT | | + + + + + | Inhaled Oxygen | - | - | | | Concentration | | | | + + + + + | Weight | 63 kg (139 lb) | 01/18/2019 2:09 PM | | | | | PDT | | + + + + + | Height | 168.9 cm (5' 6.5") | 01/18/2019 2:09 PM | | | | | PDT | | + + + + + | Body Mass Index | 22.1 | 01/18/2019 2:09 PM | | | | | PDT | | + + + + + Plan of Treatment +--------+---------+ + + + | Date | Type | Specialty | Care Team | Description | +--------+---------+ + + + | 08/15/ | Office | Cardiology | Tali Manzo DO | | | 2019 | Visit | | [address] | | | | | | [place] | | | | | | [address] | | | | | | | | +--------+---------+ + + + + + + + + | Health Maintenance | Due Date | Last Done | Comments | + + + + + | Hepatitis C | | | | | Screening | 2 | | | + + + + + | Vaccine: | | | | | Dtap/Tdap/Td (1 - | 1 | | | | Tdap) | | | | + + + + + | Cervical Cancer | | | | | Screening (Pap) | 2 | | | + + + + + | Colorectal Cancer | | | | | Screening | 2 | | | | (Colonoscopy) | | | | + + + + + | Vaccine: Zoster (1 | | | | | of 2) | 2 | | | + + + + + | Adult Annual | | | | | Wellness Visit | 6 | | | + + + + + | Breast Cancer | | | | | Screening | 7 | | | + + + + + | Vaccine: Influenza | | | | | (#1) | 9 | | | + + + + + Results Not on filefrom Last 3 Months Insurance + +--------+ +--------+ +---------+--------+ | Payer | Benefi | Subscriber | Effect | Phone | Address | Type | | | t Plan | ID | carey | | | | | | / | | Dates | | | | | | Group | | | | | | + +--------+ +--------+ +---------+--------+ | MEDICARE | MEDICA | [id number] | 09/28/19 | [phone] | | Medica | | | RE | | 01-Pre | 5 | | re | | | PART A | | sent | | | | | | AND B | | | | | | + +--------+ +--------+ +---------+--------+ | [employer] MEDICARE | [place] | [id number] | | [phone] | | Medica | | | MDCR | 19 | 016-Pr | 9 | | re | | | OPT | | esent | | | | | | PLUS | | | | | | | | WAMT | | | | | | + +--------+ +--------+ +---------+--------+ | [place] | MEDICA | [id number] | 12/31/19 | [phone] | | Medica | | | ID | | 19-Pre | 2 | | id | | | [place] | | sent | | | | + +--------+ +--------+ +---------+--------+ + +--------+ +--------+ + + | Guarantor Name | Accoun | Relation to | Date | Phone | Billing Address | | | t Type | Patient | of | | | | | | | | | | + +--------+ +--------+ + + | Yue Tse A | Person | Self | [birth year] | [address] | | | al/Fam | | 1960 | [phone] | [place] | | | [place] | | | 3 (Home) | [address] | | | | | | [phone] | | | | | | | 2 (Work) | | + +--------+ +--------+ + + | Yue Tse A | Person | Self [birth year] | [address] | | | al/Fam | | 1959 | [phone] | [place] | | | [place] | | | 3 (Home) | [address] | + +--------+ +--------+ + + Advance Directives + + + + + | Type | Date Recorded | Patient | Explanation | | | | Glass Ribbon Machine Operator | | + + + + + | Power of | | | | | Senior Project Controls Specialist | | | | + + + + + | Advance | 03/08/2017 | | | | Directive | 4:28 AM | | | + + + + +
--- OUTSIDE RECORDS SUMMARY | ~2019-04-30 | XMS | Encounter Summary ---
Demographics + + + | Address | [address] | | | [place] [address] | + + + | Home Phone | | + + + | Preferred Language | Unknown | + + + | Marital Status | Single | + + + | Mosque Affiliation | 1013 | + + + | Race | Unknown | + + + | Ethnic Group | Unknown | + + + Author + + + | Author | [facility] | | | and [place] | + + + | Organization | [facility] | | [...] Team Providers + +------+ + | Care Machine Shorthand Reporter Name | Role | Phone | + +------+ + | Rachel Duarte | PCP | | + +------+ + Reason for Visit + + + | Reason | Comments | + + + | Rash | | + + + | Dental Pain | | + + + | Toe Pain | | + + + Encounter Details +--------+ + + + + | Date | Type | Department | Care Team | Description | +--------+ + + + + | 01/15/ | Emergency | [facility] | Orin Franco | Papular rash | | 2017 | | [facility] | [facility] [address] | (Primary Dx); Pain, | | | | EMERGENCY CENTER | [address] [place] [address], | dental; Toenail | | | | [address] | [place] [address] | fungus | | | | [place] | [phone] | | | | | [address] | | | | | | [phone] | | | +--------+ + + + [...] + + + | Blood Pressure | 107/77 | 01/15/2017 4:40 PM | | | | | PDT | | + + + + + | Pulse | 85 | 01/15/2017 4:40 PM | | | | | PDT | | + + + + + | Temperature | 37.2 C (99 F) | 01/15/2017 4:40 PM | | | | | PDT | | + + + + + | Respiratory Rate | 19 | 01/15/2017 4:40 PM | | | | | PDT | | + + + + + | Oxygen Saturation | 97% | 01/15/2017 4:40 PM | | | | | PDT | | + + + + + | Inhaled Oxygen | - | - | | | Concentration | | | | + + + + + | Weight | 49.9 kg (110 lb) | 01/15/2017 4:40 PM | | | | | PDT | | + + + + + | Height | 167.6 cm (5' 6") | 01/15/2017 4:40 PM | | | | | PDT | | + + + + + | Body Mass Index | 17.75 | 01/15/2017 4:40 PM | | | | | PDT | | + + + + + documented in this encounter Discharge Instructions Instructions [facility] - 01/15/2017Take antibiotics as directed. May use ibuprofen up to 4 times daily as needed with food for discomfort, inflammation and swelling. May try bhuz-bgg-dxbitmo antifungal toenail treatment or tree tea oil applied to your toena ils as needed. Schedule follow-up with your dentist as planned. Schedule with primary care provider also has planned for recheck. May try rlcb-grl-tpfixqx hydrocortisone cream applied very lightly once a day to the rash f or 1 week. Thank you for visiting [facility] Emergency Department. Please follow up with your primary care provider in the next 1-3 days unless otherwise spec ified. You should not be driving and will require a ride home from the emergency department if you received any sedating medications today which include many medications given for pain, naus ea and anxiety. Please ask the nurse prior to discharge if you have any questions regarding the medications you were given. Please be aware that although we feel you are safe for discharge at this time, disease proc esses are dynamic and your condition may change. If you have any significant concerns about your condition that you fear may be emergent in nature, please return for evaluation. Changes in the disease process may allow certain conditions to be detected at a different t vinita. You would not be released today if there was evidence of an emergent medical or surgica l condition that would benefit from admission to the hospital or emergent surgery. Although this emergency department is staffed with highly trained physicians that are board certified in emergency medicine, unfortunately not all significant problems are detectable during the time of evaluation. This is why it is important for you to return if significantly concerne d, or otherwise follow up with your primary care provider for re-evaluation. If you review your results on "My Charts" and there happens to be any concerns or abnormali ties that you have a question, please follow up with your primary provider to discuss these results. Please read all informational handouts and medication instructions, if provided. You can contact us at [phone] AttachmentsThe following attachments cannot be sent through Care Everywhere.Fungal Infectio n, Nail (Kazakh)Skin Rashes,Self-Care for (Kazakh)Dental Pain (Kazakh)documented in thi s encounter Medications at Time of Discharge + [...] + + + +---------+ + + | penicillin | Take 1 tablet by | 30 | 0 | 01/16/20 | | | (VEETID) 500 mg | mouth 3 times daily | tablet | | 17 | 7 | | tablet | for 10 days. | | | | | + [...] [place] | | | | | | [address] | | | | | | | | +--------+---------+ + + + + +------+--------+ + + | Name | Type | Priori | Associated Diagnoses | Date/Time | | | | ty | | | + +------+--------+ + + | ED INFORMATION | TUYET | Routin | | 01/15/2017 4:40 PM | | EXCHANGE | | e | | PDT | + +------+--------+ + + documented as of this encounter Procedures + +--------+ + + + | Procedure Name | Priori | Date/Time | Associated Diagnosis | Comments | | | ty | | | | + +--------+ + + + | ED INFORMATION | Routin | 01/15/2017 | | | | EXCHANGE | e | 4:40 PM | | | | | | PDT | | | + +--------+ + + + +---+--------+ | | | | | Proced | | | ure | | | Note - | | | Zaria, | | | Lab In | | | | | | Hlseve | | | n - | | | 01/15/ | | | 2016 | | | 4:41 | | | PM PDT | | [...] | | | FICATI | | | ON?/ | | | | | | 7 | | | 16:37? | | | HASKET | | | T, | | | SARKIS | | | | | | A?MRN: | | | | | | [id number] | | | [id number] | | | his | | | [...] | | | int | | | Aug | | | 19, | | | 2017 | | | [facility] [place] | | | [place] | | | Emerge | | | ncy | | | Emerge | | | ncy | | | Jonathan | | | 15, | | | 2017 | | | [facility] | | | [facility]ce | | | [facility] | | [place] | | | [place] | | | Emerge | | | ncy | | | Emerge | | | ncy | | | | | | Chroni | | | c | | | gingiv | | | itis, | | | plaque | | | | | | induce | | | d | | | Other | | | specif | | | ied | | | disord | | | ers of | | | | | | Eustac | | | hian | | | tube, | | | unspec | | | ified | | | ear | | | E.D. | | | [...] | | | Center | | | 6 0 | | | Total | | | 6 0 | | | Note: | | [...] + | Diagnosis | + + | Papular rash - Primary Rash and other nonspecific skin eruption | + + | Pain, dental Unspecified disorder of the teeth and supporting structures | + + | Toenail fungus Dermatophytosis of nail | + + documented in this encounter
--- OUTSIDE RECORDS SUMMARY | ~2019-04-30 | XMS | Encounter Summary ---
Demographics + + + | Address | [address] | | | [place] [address] | + + + | Home Phone | | + + + | Preferred Language | Unknown | + + + | Marital Status | Single | + + + | Spiritism Affiliation | 1013 | + + + | Race | Unknown | + + + | Ethnic Group | Unknown | + + + Author + + + | Author | [facility] | | | and [place] | + + + | Organization | [facility] | | | and [...] Team Providers + +------+ + | Care Scraper Tender Name | Role | Phone | + [...] | | | | EMERGENCY CENTER | [address] [place] [address], | dental; Toenail | | | | [address] | [place] [address] | fungus | | | | [place] | [phone] | | | | | [address] | | | | | | [phone] | | | +--------+ + + + [...] for discomfort, inflammation and swelling. May try tuns-scp-vhtkplh antifungal toenail treatment or tree tea oil applied to your toena ils as needed. Schedule follow-up with your dentist as planned. Schedule with primary care provider also has planned for recheck. May try bnif-pno-moqhvqx hydrocortisone cream applied very lightly once a day to the rash f or 1 week. Thank you for visiting [facility] Emergency Department. Please follow up with your [...] if provided. You can contact us at [phone] AttachmentsThe following attachments cannot be sent through Care Everywhere.Fungal Infectio n, Nail ([place])Skin Rashes,Self-Care for ([place])Dental Pain ([place])documented in thi s encounter Medications at Time [...] [place] | | | | | | [address] | | | | | | | [...] A?MRN: | | | | | | [id number] | | | [id number] | | | his | | | [...]
--- OUTSIDE RECORDS SUMMARY | ~2019-04-30 | XMS | Encounter Summary ---
Demographics + + + | Address | [address] | | | [place] [address] | + + + | Home Phone | | + + + | Preferred Language | Unknown | + + + | Marital Status | Single | + + + | Mandaeism Affiliation | 1013 | + + + | Race | Unknown | + + + | Ethnic Group | Unknown | + + + Author + + + | Author | [facility] | | | and [place] | + + + | Organization | [facility] | | [...] Team Providers + +------+ + | Care University Controller Name | Role | Phone | + +------+ + | Shmuel Duarte | PCP | | + +------+ + Reason for Visit + + + | Reason | Comments | + + + | Eye Pain | | + + + Encounter Details +--------+ + + + + | Date | Type | Department | Care Team | Description | +--------+ + + + + | 03/27/ | Emergency | [facility] | Marcel Chavez MD | Dental infection | | 2016 | | [facility] | [address] | (Primary Dx); | | | | EMERGENCY CENTER | [place] | Atypical facial pain | | | | [address] | [address] | | | | | [place] | [phone] | | | | | [address] | | | | | | [phone] | | | +--------+ + + + [...] + + + | Blood Pressure | 117/73 | 03/27/2016 10:24 PM | | | | | PDT | | + + + + + | Pulse | 69 | 03/27/2016 10:24 PM | | | | | PDT | | + + + + + | Temperature | 36.8 C (98.2 F) | 03/27/2016 9:35 PM | | | | | PDT | | + + + + + | Respiratory Rate | 16 | 03/27/2016 10:24 PM | | | | | PDT | | + + + + + | Oxygen Saturation | 100% | 03/27/2016 10:24 PM | | | | | PDT | | + + + + + | Inhaled Oxygen | - | - | | | Concentration | | | | + + + + + | Weight | 48.5 kg (107 lb) | 03/27/2016 9:35 PM | | | | | PDT | | + + + + + | Height | 168.9 cm (5' 6.5") | 03/27/2016 9:35 PM | | | | | PDT | | + + + + + | Body Mass Index | 17.01 | 03/27/2016 9:35 PM | | | | | PDT | | + + + + + documented in this encounter Discharge Instructions Instructions Marcel Chavez MD - 03/27/2016Take the antibiotic medication as directed and fol low up with [facility]. We also recommend follow-up evaluation by ophthalmology at the [place] [facility]. documented in this encounter Medications at Time of Discharge + + + +---------+ + + | Medication | Sig | Dispensed | Refills | Start | End Date | | | | | | Date | | + + + +---------+ + + | | Take 1 tablet by | 14 | 0 | 03/27/20 | | | amoxicillin-clavulan | mouth 2 times daily | tablet | | 16 | 6 | | ate (AUGMENTIN) | for 7 days. | | | | | | 875-125 mg per | | | | | | | tablet [...] (ULTRAM) | Take 1 tablet by | 30 | 0 | 03/27/20 | | | 50 mg tablet | mouth every 8 hours | tablet | | 16 | 7 | | | as needed for Pain. | | | | | + + + +---------+ + + documented as of this encounter Plan of Treatment +--------+---------+ + + + | Date | Type | Specialty | Care Team | Description | +--------+---------+ + + + | 08/15/ | Office | Cardiology | ManzoTali DO | | | 2019 | Visit | | [address] | | | | | | [place] | | | | | | [address] | | | | | | | | +--------+---------+ + + + documented as of this encounter Visit Diagnoses + + | Diagnosis | + + | Dental infection - Primary Acute apical periodontitis of pulpal origin | + + | Atypical facial pain Atypical face pain | + + documented in this encounter
--- OUTSIDE RECORDS SUMMARY | ~2019-04-30 | XMS | Encounter Summary ---
Demographics + + + | Address | [address] | | | [place] [address] | + + + | Home Phone | | + + + | Preferred Language | Unknown | + + + | Marital Status | Single | + + + | Jainism Affiliation | 1013 | + + + | Race | Unknown | + + + | Ethnic Group | Unknown | + + + Author + + + | Author | [facility] | | | and [place] | + + + | Organization | [facility] | | | [...] Team Providers + +------+ + | Care Case Specialist Name | Role | Phone | [...] | | EMERGENCY CENTER | [place] [address] | diagnosis (Primary | | | | [address] | [phone] | Dx); Urinary tract | | | | [place] | | infection without | | | | [address] | | hematuria, site | | | | [phone] | | unspecified | +--------+ + + [...] [place] | | | | | | [address] | | | | | | | [...] CENTER | | | | [address] [facility], | | LABORATORY | | | | [place] [address] | | | | + + + + + + + + | Specimen | + + | Blood specimen | | (specimen) | + + + + + + + | Performing | Address | City/State/Zipcode | Phone Number | | Organization | | | | + + + + + | [facility] | [address] | [place] [address] | | | [facility] | | | | | LABORATORY [...] | | | | | [place] [address] | | | | + + + [...] + | [facility] | [address] | [place] [address] | | | [facility] | | | | | LABORATORY [...] + + | [facility] | [address] | [place] [address] | | | [facility] | | | | | LABORATORY [...] - 1.030 | [facility] | | | [place] | | | [facility] | | | [...] + + | [facility] | [address] | [place] [address] | | | [facility] | | | | | LABORATORY [...] + + | [facility] | [address] | [place] [address] | | | [facility] | | | | | LABORATORY [...] + + + | Glucose | 73Comment: Samoan | 65 - 99 mg/dL | [facility] [...] | | | failure.For | | [facility] [place] | | | | Americans, multiply the [...] + + | [facility] | [address] | [place] [address] | | | [facility] | [...] + + | [facility] | [address] | [place] [address] | | | [facility] | | | | | LABORATORY [...]
--- OUTSIDE RECORDS SUMMARY | ~2019-04-30 | XMS | Clinical Summary ---
Demographics + + + | Address | [address] | | | [place] [address] | + + + | Home Phone | | + + + | Preferred Language | Unknown | + + + | Marital Status | Single | + + + | Episcopalian Affiliation | 1013 | + + + | Race | Unknown | + + + | Ethnic Group | Unknown | + + + Author + + + | Author | [facility] | | | and [place] | + + + | Organization | [facility] | | | [...] Team Providers + +------+ + | Care Iridologist Name | Role | Phone | + [...] now in | | | | | [employer] program | | | | | and [...] | | | | | [place] | | | | | | [address] | | | | | | | [...] +--------+ +---------+--------+ | MEDICARE | MEDICA | [id number] | 09/28/19 | [phone] | | Medica | | | RE | | 01-Pre | 5 | | re | | | PART A | | sent | | | | | | AND B | | | | | | + +--------+ +--------+ +---------+--------+ | [place] MEDICARE | LUQUE | [id number] | | [phone] | | Medica | | | MDCR | 19 | 016-Pr | 9 | | re | | | OPT | | esent | | | | | | PLUS | | | | | | | | WAMT | | | | | | + +--------+ +--------+ +---------+--------+ | [place] | MEDICA | [id number] | 12/31/19 | [phone] | | Medica [...] [place] | | | 3 (Home) | [address] | | | | | | [phone] | | | | | | | 2 (Work) | | + +--------+ +--------+ + + | Yue Tse A | Person | Self | [birth year] | [address] | | | al/Fam | | 1959 | [phone] | [place] | | | [place] | | | 3 (Home) | [address] | + +--------+ +--------+ + + Advance Directives + + + + + | Type | Date Recorded | Patient | Explanation | | | | Shoe Trimmer | | + + + + + | Power of | | | | | Mortgage Loan Originator | | | | + + + + + | Advance | 03/08/2017 | | | | Directive | 4:28 AM | | | + + + + +
--- OUTSIDE RECORDS SUMMARY | ~2019-04-30 | XMS | Encounter Summary ---
Demographics + + + | Address | [address] | | | [place] [address] | + + + | Home Phone | | + + + | Preferred Language | Unknown | + + + | Marital Status | Single | + + + | Zoroastrianism Affiliation | 1013 | + + + | Race | Unknown | + + + | Ethnic Group | Unknown | + + + Author + + + | Author | [facility] | | | and [place] | + + + | Organization | [facility] | | [...] Team Providers + +------+ + | Care Registered Nurse Obstetrics Name | Role | Phone | + [...] | [address] | [place] [address] | (Primary Dx) | | 2017 | | [place] | [phone] | | | | | [address] | | | | | | [phone] | | | +--------+ + + + [...] be sent through Care Everywhere.Bipolar Disorde r (Syriac)documented in this encounter Medications at Time of [...] [place] | | | | | | [address] | | | | | | | [...] A?MRN: | | | | | | [id number] | | | [id number] | | | his | | | [...] + | [facility] | [address] [facility] [address] | [place] [address] | | | [facility] | [...] + | [facility] | [address] | [place] [address] | | | [facility] | | | | | LABORATORY [...] [address] | [place] [address] | | | [facility] | | | | | LABORATORY [...] + | [facility] | [address] | [place] [address] | | | [facility] | | | | | LABORATORY [...] + + | [facility] | [address] | [place] [address] | | | [facility] | | | | | [...] + + + | Glucose | 89Comment: Liberian | 65 - 99 mg/dL | [facility] [...] + | [facility] | [address] | [place] [address] | | | [facility] | | | | | LABORATORY [...] + + | [facility] | [address] | [place] [address] | | | [facility] | [...] [address] | [place] [address] | | | [facility] | [...] + | [facility] | [address] | [place] [address] | | | [facility] | | | | | LABORATORY [...] | | | | | Oral, ONCE, [facility] 03/10/17 at | | PM PDT | | | | | 2325, For 1 dose | | | | | | + +--------+ +------+------+------+ +---+---+ | | | +---+---+ documented in this encounter
--- OUTSIDE RECORDS SUMMARY | ~2019-04-30 | XMS | Encounter Summary ---
Demographics + + + | Address | [address] | | | [place] [address] | + + + | Home Phone | | + + + | Preferred Language | Unknown | + + + | Marital Status | Single | + + + | Jew Affiliation | 1013 | + + + | Race | Unknown | + + + | Ethnic Group | Unknown | + + + Author + + + | Author | [facility] | | | and [place] | + + + | Organization | [facility] | | | [...] Team Providers + +------+ + | Care Sales Commissions Analyst Name | Role | Phone | + +------+ + | Rachel Duarte SUPERINTENDENT QUARRY | PCP | | + +------+ + Reason for Visit + + + | Reason | Comments | + + + | Wound Re-evaluation | | + + + Encounter Details +--------+ + + + + | Date | Type | Department | Care Team | Description | +--------+ + + + + | 03/19/ | Emergency | [facility] | Pinky Carl, | Encounter for wound | | 2017 | | [facility] | PA-C [address] | care (Primary Dx) | | | | EMERGENCY CENTER | [address] | | | | | [address] | [id number] | | | | | [place] | | | | | | [address] | | | | | | [phone] | | | +--------+ + + + [...] + + + | Blood Pressure | 106/68 | 03/19/2017 11:00 PM | | | | | PDT | | + + + + + | Pulse | 74 | 03/19/2017 11:00 PM | | | | | PDT | | + + + + + | Temperature | 36.8 C (98.3 F) | 03/19/2017 11:00 PM | | | | | PDT | | + + + + + | Respiratory Rate | 16 | 03/19/2017 11:00 PM | | | | | PDT | | + + + + + | Oxygen Saturation | 100% | 03/19/2017 11:00 PM | | | | | PDT | | + + + + + | Inhaled Oxygen | - | - | | | Concentration | | | | + + + + + | Weight | 50.8 kg (112 lb) | 03/19/2017 11:00 PM | | | | | PDT | | + + + + + | Height | 167.6 cm (5' 6") | 03/19/2017 11:00 PM | | | | | PDT | | + + + + + | Body Mass Index | 18.08 | 03/19/2017 11:00 PM | | | | | PDT | | + + + + + documented in this encounter Discharge Instructions Instructions Pinky Carl PA-C - 03/19/2017Please finish your antibiotics Use the topical twice a day for 5days. Use a SMALL amount!!! AttachmentsThe following attachments cannot be sent through Care Everywhere.Wound Care (Marc beckham)documented in this encounter Medications at Time of [...] | | | | | | [place] | | | | | | [address] | | | | | | | | +--------+---------+ + + + + +------+--------+ + + | Name | Type | Priori | Associated Diagnoses | Date/Time | | | | ty | | | + +------+--------+ + + | ED INFORMATION | TUYET | Routin | | 03/19/2017 10:57 PM | | EXCHANGE | | e | | PDT | + +------+--------+ + + documented as of this encounter Procedures + +--------+ + + + | Procedure Name | Priori | Date/Time | Associated Diagnosis | Comments | | | ty | | | | + +--------+ + + + | ED INFORMATION | Routin | 03/19/2017 | | | | EXCHANGE | e | 10:57 PM | | | | | | PDT | | | + +--------+ + + + +---+--------+ | | | | | Proced | | | ure | | | Note - | | | Zaria, | | | Lab In | | | | | | Hlseve | | | n - | | | 10/21/ | | | 2017 | | | 10:58 | | | PM PDT | | [...] | | | ON?10/ | | | [birth year]/201 | | | 7 | | | 22:54? | | | HASKET | | | T, | | | SARKIS | | | | | | A?MRN: | | | | | | [id number] | | | [id number] | | | his | | | [...] | | | Oct | | | 21, | | | 2017 | | | [facility] | | | [facility] [place] | | | [place] | | | Emerge | | | ncy | | | Emerge | | | ncy | | | Oct | | | 20, | | | 2017 | | | [facility] | | | [facility] | | | [facility] | | | [place] | | | [place] | | | Emerge | | | ncy | | | Emerge | | | ncy | | | Chief | | | Compla | | | int: | | | SCARED | | | AND | | | COLD | | | Oct | | | [...] tion | | | | | | [place] | | | r | | | disord | | | er, | | | curren | | | t | | | episod | | | e | | | mixed, | | | mild | | | Oct | | | [...] Acuity | | | | | | [facility] | | | ess | | | Medica | | | l | | | Center | | | 1 0 | | | [facility] | | | ence | | | [facility] | | | | | | Med[facility] | | | l | | | Center | | | 10 0 | | | Total | | | 11 0 | | | Note: | | [...] | | 5 in | | | 60 5 | | | in | | | 12Know | | | [...] + | Diagnosis | + + | Encounter for wound care - Primary Encounter for other specified aftercare | + + documented in this encounter Administered Medications + +--------+ +--------+------+------+ | Medication Order | MAR | Action | Dose | Rate | Site | | | Action | Date | | | | + +--------+ +--------+------+------+ | ibuprofen (ADVIL,MOTRIN) tablet | Given | 03/19/20 | 600 mg | | | | 600 mg 600 mg, Oral, ONCE, Sat | | 17 11:37 | | | | | 03/19/17 at 2335, For 1 dose, | | PM PDT | | | | | Give with food., | | | | | | + +--------+ +--------+------+------+ +---+---+ | | | +---+---+ + +-------+ + +---+---+ | mupirocin (BACTROBAN) 2% | Given | 03/19/20 | 1 | | | | ointment Topical, ONCE, Sat | | 17 11:37 | Applicat | | | | 03/19/17 at 2335, For 1 dose | | PM PDT | ion | | | + +-------+ + +---+---+ +---+---+ | | | +---+---+ documented in this encounter
--- OUTSIDE RECORDS SUMMARY | ~2019-04-30 | XMS | Encounter Summary ---
Demographics + + + | Address | [address] | | | [place] [address] | + + + | Home Phone | | + + + | Preferred Language | Unknown | + + + | Marital Status | Single | + + + | Baptist Affiliation | 1013 | + + + | Race | Unknown | + + + | Ethnic Group | Unknown | + + + Author + + + | Author | [facility] | | | and [place] | + + + | Organization | [facility] | | [...] Team Providers + +------+ + | Care Manager Book Name | Role | Phone | + [...] | | | | EMERGENCY CENTER | [place] | Atypical facial pain | | | | [address] | [address] | | | | | [place] | [phone] | | | | | [address] | | | | | | [phone] | | | +--------+ + + + [...] as directed and fol low up with [facility]. We also recommend follow-up evaluation by ophthalmology at the [place] [facility]. documented in this encounter Medications at Time [...] [place] | | | | | | [address] | | | | | | | | +--------+---------+ + + + documented as of this encounter Visit Diagnoses + + | Diagnosis | + + | Dental infection - Primary Acute apical periodontitis of pulpal origin | + + | Atypical facial pain Atypical face pain | + + documented in this encounter
--- OUTSIDE RECORDS SUMMARY | ~2019-04-30 | XMS | Encounter Summary ---
Demographics + + + | Address | [address] | | | [place] [address] | + + + | Home Phone | | + + + | Preferred Language | Unknown | + + + | Marital Status | Single | + + + | Restorationist Affiliation | 1013 | + + + | Race | Unknown | + + + | Ethnic Group | Unknown | + + + Author + + + | Author | [facility] | | | and [place] | + + + | Organization | [facility] | | | and [place] | + + + | Address | Unknown | + + + | Phone | Unavailable | + + + Support + + + + + | Name | Relationship | Address | Phone | + + + + + | Cassidy Perez | ECON | Unknown | | + + + + + | Saar Tse | ECON | [place], [place] | | + + + + + | Brant Almazan | ECON | Unknown | | + + + + + | Sherine Tse | ECON | Unknown | | + + + + + Care Team Providers + +------+ + | Care Staff Radiographer Name | Role | Phone | + +------+ + | Jonathan Carney NP | PCP | | + +------+ + Reason for Visit + + + | Reason | Comments | + + + | Follow-up | 3 month | + + + Encounter Details +--------+---------+ + + + | Date | Type | Department | Care Team | Description | +--------+---------+ + + + | 01/18/ | Office | [facility] | Tali Manzo DO | LVH (left | | 2019 | Visit | CARDIOLOGY [place] | [address] | ventricular | | | | [address] | [place] | hypertrophy) | | | | [address] [place] [address] | [id number] | (Primary Dx); | | | | [place] | | Moderate mitral | | | | [address] | | regurgitation | | | | [phone] | | | +--------+---------+ + + + Social History + +-------+ [...] now in | | | | | [employer] program | | | | | and [...] | Temperature | - | - | | + + + + + | Respiratory Rate | - | - | | + + + + + [...] + + + documented in this encounter Progress Notes Tali Manzo, - 01/18/2019 2:00 PM PDT [facility] Cardiology Cardiology Consult Note Reason for Consultation: abnormal EKG, murmur, SOB Requesting Physician: Jonathan Carney History Obtained From: patient HISTORY OF PRESENT ILLNESS: Cardiac Problem List 1. Mild LVH 2. LVOT gradient 52/37mmHg with ARLET 3. Diastolic dysfunction 4. Moderate MR Non Cardiac Problem List PTSD Bipolar disorder Depression Hypothyroidism Osteoporosis Mrs. Tse is a 58-year-old female who was referred to the Cardiology office for a systol ic murmur and shortness of breath. The patient recently had an echocardiogram which demonstr ated mild LVH, LVOT gradient of 52/37 mmHg with systolic anterior motion of the mitral valve and moderate MR as well as diastolic dysfunction. The patient reports that she has been sym ptomatic with shortness of breath for about 1 year. She describes that like she "can't get a deep breath." She has it both at rest and when she exerts herself. She reports that she has not been very active lately. 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 She denies any lower extremity swelling. She occasional ly gets worsening shortness of breath when she lays flat. She denies any recent syncopal or presyncopal episodes. She reports that she was previously told that she had heart condition 20 years ago, but she was unable to further elicit exactly what this was. Interim History The patient was last seen on 06/15/18, at that time we started metoprolol succinate 50mg po daily due to symptoms of dyspnea that were felt to be related to her LVOT gradient. She repo rts that she has had improvement in her symptoms since starting the metoprolol. I last saw the patient 3 months ago. At that time, we increased her metoprolol succinate t o 75 mg by mouth daily. Since that time, she has been feeling well. She has not had any is sues of shortness of breath with exertion or any problems breathing lately. She occasionall y gets lightheaded when she is standing for long periods of time, but denies any syncopal ep isodes. She is feeling overall well. She denies any lower extremity edema, orthopnea, PND . Review of Systems Constitutional: Negative for fatigue. HENT: Negative for nosebleeds. Eyes: Negative for visual disturbance. Respiratory: Negative for cough. Positive for SOB. Cardiovascular: Negative for chest pain, palpitations and leg swelling. Gastrointestinal: Negative for nausea, vomiting, abdominal pain and blood in stool. Genitourinary: Negative for hematuria or dysuria. Musculoskeletal: Negative for myalgias, back pain and arthralgias. Skin: Negative for color change. Neurological: Negative for dizziness, syncope and numbness. Hematological: Does not bruise/bleed easily. Psychiatric/Behavioral: she has a history of bipolar disorder PAST MEDICAL & SURGICAL HISTORY Past Medical History Diagnosis Date Bipolar affective disorder (HCC) Depression Head concussion X 2 Heart murmur Hypothyroidism Numbness of foot Osteoporosis PTSD (post-traumatic stress disorder) Syncope and collapse Past Surgical History Procedure Laterality Date SECTION X 2 COLONOSCOPY 2013 FOOT SURGERY Right 2014 removal of a bunion, has two pins in foot. TEAR DUCT SURGERY Bilateral TUBAL LIGATION MEDICATIONS Home Medications Outpatient Encounter Prescriptions as of 07/27/2018 Medication Sig Dispense Refill acetaminophen (TYLENOL) 325 MG tablet Take 325 mg by mouth every 6 (six) hours as neede d for Pain. brexpiprazole (REXULTI) 3 MG tablet Take 3 mg by mouth daily. divalproex (DEPAKOTE) 250 MG EC tablet Take 250 mg by mouth 3 (three) times daily. levothyroxine (SYNTHROID) 50 MCG tablet Take 50 mcg by mouth every morning before break fast. metoprolol (TOPROL-XL) 50 MG 24 hr tablet Take 1 tablet by mouth daily. 30 tablet 5 traZODone (DESYREL) 100 MG tablet Take 100 mg by mouth nightly. metoprolol (TOPROL-XL) 25 MG 24 hr tablet Take 1 tablet by mouth daily. 30 tablet 11 No facility-administered encounter medications on file as of 07/27/2018. Allergies Allergies Allergen Reactions Betadine [Povidone Iodine] Rash Haloperidol And Related Other (See Comments) Became delerious Influenza Vac Split [Flu Virus Vaccine] Rash Remy Other (See Comments) Fatigued and "flat" feeling, she had zero motivation. Codeine Nausea and Vomiting FAMILY HISTORY Family History Problem Relation Age of Onset Cancer Father bladder Brother had enlarged heart- 44yo, on meth at the time SOCIAL HISTORY Social History Social History Marital status: Single Spouse name: N/A Number of children: N/A Years of education: N/A Occupational History Not on file. Social History Main Topics Smoking status: Never Smoker Smokeless tobacco: Never Used Alcohol use Yes Comment: Socially, but now in [place] and is not allowed. Drug use: Yes Types: Marijuana Comment: occasionally (medical) Sexual activity: Not on file Other Topics Concern Not on file Social History Narrative No narrative on file PHYSICAL EXAM Vitals: 01/18/19 1409 BP: 118/66 Pulse: 66 SpO2: 98% Weight: 63 kg (139 lb) Height: 1.689 m (5' 6.5") Physical Exam GENERAL: Well developed, well nourished, in no distress. Appears approximately stated age. HEENT: Normocephalic, atraumatic. EYES: PERRL, sclerae anicteric, no xanthelsasmas NECK: No JVD, lymphadenopathy, thyromegaly, bruits. Carotid pulses are 2+ bilaterally LUNGS: Clear bilaterally, with no rales, rhonchi or wheezing noted, respirations unlabored HEART: Nondisplaced PMI, regular rate and rhythm, S1, S2 normal. III/ dynamic systolic mu rmur worse with valsalva ABDOMEN: Soft, nontender, no organomegaly, masses or bruits. Bowel sounds are normal in all 4 quadrants. The abdominal aortic pulsation is not palpable. EXTREMITIES: No edema. Radial pulses 2+ bilaterally. Femoral pulses are 2+ bilaterally with out bruits. DP and PT pulses are 2+ bilaterally. SKIN: Warm and dry, capillary refill is normal, no lesions. NEUROLOGIC: Awake, alert and oriented x 3. No focal motor deficits. PSYCHIATRIC: Appropriate, affect appears normal DATA Blood work from 07/25/18 reviewed including white blood cell count 4.9, hemoglobin 12.8, hem atocrit 36, platelet count 159, sodium 137, potassium 3.8, chloride 104, bicarbonate 27, BUN 13, creatinine 0.78. EK06/15/2018 Ordered and reviewed by myself normal sinus rhythm 75 bpm, left ventricular hypertrophy with repolarization abnormality. Last Echo: 04/14/18 Impression 1. The left ventricle is normal in size, mild concentric hypertrophy and hyperdynamic systo lic function EF>70%. 2. Systolic anterior motion of the mitral valve ARLET, peak/mean LVOT gradient of about 52/37 mmHg. 3. The diastolic filling pattern indicates impaired relaxation consistent with mild dysfunc tion (Grade I). 4. The right ventricle is normal in size and function. 5. Moderate mitral regurgitation and milldy dilated left atrium. 6. Mild tricuspid regurgitation and no pulmonary hypertension. 7. There is no pericardial effusion. ASSESSMENT & PLAN 1. Mild LVH 2. LVOT gradient 52/37mmHg with ARLET 3. Diastolic dysfunction 4. Moderate MR 5. Vasovagal syncope - Mrs. Tse is a 58yo female who presents to the cardiology office for follow up regardi ng a murmur and shortness of breath. Recent echocardiogram demonstrated mild left ventricula r hypertrophy, elevated LVOT gradients, systolic anterior motion of the mitral valve, modera te mitral regurgitation, and diastolic dysfunction. She's symptomatic with dyspnea on exerti on but has had improvement in her symptoms with the addition of metoprolol. - Continue metoprolol to 75mg po daily - the patient was educated on avoiding dehydration - diuretics and vasodilators should be avoided. - Follow up in 6 months Thank you for allowing me to participate in the care of this patient. Primary Care Physician: JONATHAN Manzo DO documented in this enco unter Plan of Treatment +--------+---------+ + + + | Date | Type | Specialty | Care Team | Description | +--------+---------+ + + + | 08/15/ | Office | Cardiology | Tali Manzo DO | | | 2019 | Visit | | [address] | | | | | | [place] | | | | | | [address] | | | | | | | | +--------+---------+ + + + documented as of this encounter Visit Diagnoses + + | Diagnosis | + + | LVH (left ventricular hypertrophy) - Primary Cardiomegaly | + + | Moderate mitral regurgitation Mitral valve disorders | + + documented in this encounter
--- OUTSIDE RECORDS SUMMARY | ~2019-04-30 | XMS | Encounter Summary ---
Demographics + + + | Address | [address] | | | [place] [address] | + + + | Home Phone | | + + + | Preferred Language | Unknown | + + + | Marital Status | Single | + + + | Scientologist Affiliation | 1013 | + + + | Race | Unknown | + + + | Ethnic Group | Unknown | + + + Author + + + | Author | [facility] | | | and [place] | + + + | Organization | [facility] | | | and [...] Team Providers + +------+ + | Care Tax Preparer Name | Role | Phone | + +------+ + | No, Physician | PCP | Unavailable | + +------+ + Reason for Visit +---------+ + | Reason | Comments | +---------+ + | Results | | +---------+ + Encounter Details +--------+ + + + + | Date | Type | Department | Care Team | Description | +--------+ + + + + | 10/11/ | Telephone | [facility] | Susie Pearson, | Results | | 2018 | | CARE [address] | [address] | | | | | [place] | [place] | | | | | [address] | [address] | | | | | [phone] | | | +--------+ + + + [...] [place] | | | | | | [address] | | | | | | | | +--------+---------+ + + + documented as of this encounter Visit Diagnoses Not on filedocumented in this encounter"
--- OUTSIDE RECORDS SUMMARY | ~2019-04-30 | XMS | Encounter Summary ---
Demographics + + + | Address | [address] | | | [place] [address] | + + + | Home Phone | | + + + | Preferred Language | Unknown | + + + | Marital Status | Single | + + + | Shinto Affiliation | 1013 | + + + | Race | Unknown | + + + | Ethnic Group | Unknown | + + + Author + + + | Author | [facility] | | | and [place] | + + + | Organization | [facility] | | [...] Team Providers + +------+ + | Care Surtass Analyst Name | Role | Phone | + +------+ + | Jonathan Carney NP | PCP | | + +------+ + Reason for Visit + + + | Reason | Comments | + + + | Medication Refill | | + + + Encounter Details +--------+--------+ + + + | Date | Type | Department | Care Team | Description | +--------+--------+ + + + | 04/10/ | Refill | [facility] | Tali Manzo DO | Medication Refill | | 2019 | | CARDIOLOGY [place] | [address] | | | | | [address] | [place], [place] | | | | | [address] | [id number] | | | | | [place] | | | | | | [address] | | | | | | [phone] | | | +--------+--------+ + + + Social History + +-------+ [...] now in | | | | | [employer] program | | | | | and [...] | | | | | [place] | | | | | | [address] | | | | | | | | +--------+---------+ + + + documented as of this encounter Visit Diagnoses Not on filedocumented in this encounter"
--- OUTSIDE RECORDS SUMMARY | ~2019-04-30 | XMS | Clinical Summary ---
Demographics + + + | Address | [address] | | | [place] [address] | + + + | Home Phone | | + + + | Preferred Language | Unknown | + + + | Marital Status | Single | + + + | Mandaeism Affiliation | Unknown | + + + | Race | Unknown | + + + | Ethnic Group | Unknown | + + + Author + + + | Author | [email or web address] (Historical as of | | | 01-13-19) | + + + | Organization | [facility] (Historical as of | | | 01-13-19) [...] Team Providers + +------+ + | Care Embroidery Supervisor Name | Role | Phone | + +------+ + | Jonathan Carney | PP | | + +------+ + [...] + + + + + + | [place] | Other (See Comments) | Medium | [...] | | | Socially, but now in [employer] program and | | | | | [...] +------+-------+ + | MEDICARE | MEDICA | [id number] | | | [address] | | | [place] | | | | [place] [address] | | | IP-OP | | | | | + +--------+ +------+-------+ + | MEDICAID | MEDICA | [id number] | | | [address] | | | [place] | | | | [place] | | | [place] | | | | [address] | + +--------+ +------+-------+ + + +--------+ [...] | | al/Gavino | | 2 | [id number] | [place] | | | [place] | | | [address]: | [address] | | | | | | | | | | | | | [phone] | | | | | | | 7160 | | + +--------+ +--------+ + +
--- OUTSIDE RECORDS SUMMARY | ~2019-04-30 | XMS | Encounter Summary ---
Demographics + + + | Address | [address] | | | [place] [address] | + + + | Home Phone | | + + + | Preferred Language | Unknown | + + + | Marital Status | Single | + + + | Gnosticism Affiliation | 1013 | + + + | Race | Unknown | + + + | Ethnic Group | Unknown | + + + Author + + + | Author | [facility] | | | and [place] | + + + | Organization | [facility] | | | [...] Team Providers + +------+ + | Care Radio Mechanic Helper Name | Role | Phone | + +------+ + | Shmuel Duarte | PCP | | + +------+ + Reason for Visit + + + | Reason | Comments | + + + | Dental Pain | | + + + Encounter Details +--------+ + + + + | Date | Type | Department | Care Team | Description | +--------+ + + + + | 09/19/ | Emergency | [facility] | [place], | Pain, dental | | 2017 | | [facility] | [facility] [address] | (Primary Dx) | | | | EMERGENCY CENTER | [address] | | | | | [address] | [place] [address] | | | | | [place] | [phone] | | | | | [address] | | | | | | [phone] | | | +--------+ + + + [...] + + + | Blood Pressure | 129/81 | 09/19/2016 6:59 PM | | | | | PDT | | + + + + + | Pulse | 65 | 09/19/2016 6:59 PM | | | | | PDT | | + + + + + | Temperature | 36.3 C (97.4 F) | 09/19/2016 6:59 PM | | | | | PDT | | + + + + + | Respiratory Rate | 16 | 09/19/2016 6:59 PM | | | | | PDT | | + + + + + | Oxygen Saturation | 99% | 09/19/2016 6:59 PM | | | | | PDT | | + + + + + | Inhaled Oxygen | - | - | | | Concentration | | | | + + + + + | Weight | 52.2 kg (115 lb) | 09/19/2016 6:59 PM | | | | | PDT | | + + + + + | Height | 167.6 cm (5' 6") | 09/19/2016 6:59 PM | | | | | PDT | | + + + + + | Body Mass Index | 18.56 | 09/19/2016 6:59 PM | | | | | PDT | | + + + + + documented in this encounter Discharge Instructions Instructions Gin Millan [facility] - [place]19/[place]. Take antibiotic as direc chema until gone. Follow-up with dentistry for definitive treatment. documented in this encounter Medications at Time [...] penicillin | Take 1 tablet by | 40 | 0 | 09/20/19 | | | (VEETID) 500 mg | mouth 4 times daily | tablet | | 17 [...] | | | | | [place] | | | | | | [id number] | | | | | | | | +--------+---------+ + + + documented as of this encounter Visit Diagnoses + + | Diagnosis | + + | Pain, dental - Primary Unspecified disorder of the teeth and supporting structures | + + documented in this encounter Administered Medications + +--------+ +--------+------+------+ | Medication Order | MAR | Action | Dose | Rate | Site | | | Action | Date | | | | + +--------+ +--------+------+------+ | penicillin (VEETID) tablet 500 | Given | 09/20/19 | 500 mg | | | | mg 500 mg, Oral, ONCE, Sun | | 17 7:51 | | | | | 09/19/16 at 1940, For 1 dose, Give | | PM PDT | | | | | 1 hour before or 2 hours after | | | | | | | meals., Indications: Dental | | | | | | | Caries | | | | | | + +--------+ +--------+------+------+ +---+---+ | | | +---+---+ documented in this encounter
--- OUTSIDE RECORDS SUMMARY | ~2019-04-30 | XMS | Encounter Summary ---
Demographics + + + | Address | [address] | | | [place] [address] | + + + | Home Phone [...] Team Providers + +------+ + | Care Acid Recovery Operator Name | Role | Phone | [...] + | 10/04/ | Telephone | [facility] | Susie Pearson, | Other | | 2018 | | CARE [address] | [address] | | | | | [place] | [place] | | | | | [address] | [address] | | | | | [phone] | | | +--------+ + + + [...] [place] | | | | | | [address] | | | | | | | | +--------+---------+ + + + documented as of this encounter Visit Diagnoses Not on filedocumented in this encounter"
--- OUTSIDE RECORDS SUMMARY | ~2019-04-30 | XMS | Encounter Summary ---
Demographics + + + | Address | [address] | | | [place] [address] | + + + | Home Phone [...] + + | Author | [facility] | | | and [place] | + + + | Organization | [facility] | | [...] Team Providers + +------+ + | Care Pump Tester Name | Role | Phone | + +------+ + | Shmuel Duarte | PCP | | + +------+ + Encounter Details +--------+ + + + + | Date | Type | Department | Care Team | Description | +--------+ + + + + | 04/12/ | Hospital | [facility] | Tahira Carl PA | | | 2017 | Encounter | [facility] | [address] | | | | | LABORATORY [address] [place], [place] | | | | | [facility] | [id number] | | | | | [place], [place] | | | | | | [address] | | | | | | [phone] | | | +--------+ + + + [...] [place] | | | | | | [address] | | | | | | | | +--------+---------+ + + + documented as of this encounter Procedures + +--------+ + + + | Procedure Name | Priori | Date/Time | Associated Diagnosis | Comments | | | ty | | | | + +--------+ + + + | TSH | Routin | 04/12/2017 | | Results for this | | | e | 10:35 AM | | procedure are in the | | | | PST | | results section. | + +--------+ + + + | T4, FREE | Routin | 04/12/2017 | | Results for this | | | e | 10:35 AM | | procedure are in the | | | | PST | | results section. | + +--------+ + + + | URINALYSIS WITH | Routin | 04/12/2017 | | Results for this | | MICROSCOPIC IF | e | 10:05 AM | | procedure are in the | | INDICATED | | PST | | results section. | + +--------+ + + + documented in this encounter Results TSH (04/12/2017 10:35 AM PST) + + + + + + | Component | Value | Ref Range | Performed | Pathologist | | | | | At | Signature | + + + + + + | TSH | 5.968 (H) | 0.36 - 3.74 | [facility] | | | | | uIU/mL | [facility] | | | | | [...] + + | [facility] | [address] | [place] [address] | | | [facility] | | | | | LABORATORY | | | | + + + + + T4, Free (04/12/2017 10:35 AM PST) + +-------+ + + + | Component | Value | Ref Range | Performed | Pathologist | | | | | At | Signature | + +-------+ + + + | FT4 | 0.90 | 0.76 - 1.46 | [facility] | | | | | ng/dL | [facility] | | | | | | [facility] [...] + + | [facility] | [address] | [place] [address] | | | [facility] | | | | | LABORATORY | | | | + + + + + Urinalysis with Microscopic if Indicated (04/12/2017 10:05 AM PST) + + + + + [...] + + + + | Specific | 1.015 | 1.002 - 1.030 | [facility] | | | [place] [facility] | | | [facility] | | | | | | [facility] | | | | [facility] | | | | | | LABORATORY | | + + + + + + | pH, Urine | 7.0 | 5.0 - 7.5 | [facility] | [...] + + | [facility] | [address] | [place] [address] | | | [facility] | | | | | LABORATORY | | | | + + + + + documented in this encounter Visit Diagnoses Not on filedocumented in this encounter"
--- OUTSIDE RECORDS SUMMARY | ~2019-04-30 | XMS | Encounter Summary ---
Demographics + + + | Address | [address] | | | [place] [address] | + + + | Home Phone | | + + + | Preferred Language | Unknown | + + + | Marital Status | Single | + + + | Shinto Affiliation | 1013 | + + + | Race | Unknown | + + + | Ethnic Group | Unknown | + + + Author + + + | Author | [facility] | | | and [place] | + + + | Organization | [facility] | | | [...] Team Providers + +------+ + | Care Feed Crusher Operator Name | Role | Phone | [...] 09/19/ | Emergency | [facility] | [place], | Pain, dental | | 2017 | | [facility] | [facility] [address] | (Primary Dx) | | | | EMERGENCY CENTER | [address] | | | | | [address] | [place] [address] | | | | | [place] | [phone] | | | | | [address] | | | | | | [phone] | | | +--------+ + + + [...] | | | | | [place] | | | | | | [id number] | | | | | | | [...]
--- OUTSIDE RECORDS SUMMARY | ~2019-04-30 | XMS | Encounter Summary ---
Demographics + + + | Address | [address] | | | [place] [address] | + + + | Home Phone | | + + + | Preferred Language | Unknown | + + + | Marital Status | Single | + + + | Mormonism Affiliation | 1013 | + + + | Race | Unknown | + + + | Ethnic Group | Unknown | + + + Author + + + | Author | [facility] | | | and [place] | + + + | Organization | [facility] | | [...] Team Providers + +------+ + | Care Sparmaker Name | Role | Phone | + +------+ + | Rachel Duarte CLAIMS VICE PRESIDENT | PCP | | + +------+ + [...] | | | EMERGENCY CENTER | [address] [place] | | | | | [address] | [id number] | | | | | [place] | | | | | | [address] | | | | | | [phone] | | | +--------+ + + + [...] | | | | | [place] | | | | | | [address] | | | | | | | [...] A?MRN: | | | | | | [id number] | | | [id number] | | | his | | | [...]
--- OUTSIDE RECORDS SUMMARY | ~2019-04-30 | XMS | Encounter Summary ---
Demographics + + + | Address | [address] | | | [place] [address] | + + + | Home Phone | | + + + | Preferred Language | Unknown | + + + | Marital Status | Single | + + + | Faith Affiliation | 1013 | + + + | Race | Unknown | + + + | Ethnic Group | Unknown | + + + Author + + + | Author | [facility] | | | and [place] | + + + | Organization | [facility] | | | [...] Team Providers + +------+ + | Care Bundle Tier And Labeler Name | Role | Phone | + [...] Description | +--------+--------+ + + + | 02/03/ | Refill | [facility] | Tali Manzo DO | Medication Refill | | 2019 | | CARDIOLOGY [place] | [address] | | | | | [address] | [place], [place] | | | | | [facility] | [id number] | | | | | [place] | | | | | | [address] | | | | | | [phone] | | | +--------+--------+ + + + [...] now in | | | | | oneforty program | | | | | and [...] | | | | | [place] | | | | | | [address] | | | | | | | | +--------+---------+ + + + documented as of this encounter Visit Diagnoses Not on filedocumented in this encounter"
--- OUTSIDE RECORDS SUMMARY | ~2019-04-30 | XMS | Encounter Summary ---
Demographics + + + | Address | [address] | | | [place] [address] | + + + | Home Phone | | + + + | Preferred Language | Unknown | + + + | Marital Status | Single | + + + | Congregation Affiliation | 1013 | + + + [...] Team Providers + +------+ + | Care Director Prospect Name | Role | Phone | + [...] MACARIO HERNANDEZ, | | | | | [facility] | [place] [address], | | | | | [address] | [place] [address] | | | | | [phone] | [phone] | | | | | | | [...] [place] | | | | | | [address] | | | | | | | [...] 1.09 | | | m/s MV Dec [place]: 2.16 m/s2 MV DecT: 359.51 ms MV [...] m/s S': 0.11 m/s | | | Channel Manager: DAVI Authenticated by: Bel Leach MD Report [...] cmLVPWd: 1.16 cmLVOT Area: | | 3.63 [id number] Diam: 2.15 cm%FS: 31.01 %EF(Teich): 60.01 %ESV(Teich): [...] | Index (A-L): 34.90 ml/m2LAAs A2C: 21.48 [id number] A-L A2C: 75.66 mlLALs A2C: 5.17 | | cmLAAs A4C: 16.49 [id number] A-L A4C: 47.67 mlLALs A4C: 4.84 cmRAAs: 16.42 | | [id number] A-L: 46.24 mlRAESV MOD: 45.67 mlRALs: 4.95 cmTAPSE: 2.58 cmAV maxPG: | | 32.14 mmHgAV meanP.42 mmHgAV Vmax: 2.83 m/Makenzie Vmean: 1.93 m/Makenzie VTI: 54.58 | | cmAVA Vmax: 3.16 cm2AVA (VTI): 3.56 [id number] maxP.40 mmHgLVOT meanP.61 | | mmHgLVSI Dopp: 109.19 ml/m2LVSV Dopp: 194.36 mlLVOT Vmax: 2.47 m/sLVOT Vmean: | | 1.61 m/sLVOT VTI: 53.53 cmMV A [place]: 1.09 m/sMV Dec [place]: 2.16 m/s2MV DecT: | | 359.51 msMV E [place]: 0.78 m/sMV E/A Ratio: 0.71MV PHT: 104.25 msMVA By PHT: 2.11 | | ly9Bwooxc e': 0.04 m/sSeptal E/e': 17.90Lateral e': 0.05 m/sLateral E/e': | | 13.01RAP: 5 mmHgRVSP: 25.64 mmHgTR maxP.64 mmHgTR Vmax: 2.27 m/sS': 0.11 | | m/s Channel Manager: DHAuthenticated by: Bel Leach MDReport Date/Time: 04-19-2018 [...] A [place]: 1.09 m/s | |MV Dec [place]: 2.16 m/s2 | |MV DecT: 359.51 ms [...] | |S': 0.11 m/s | | | |Channel Manager: DAVI | |Authenticated by: Bel Leach MD [...]
--- OUTSIDE RECORDS SUMMARY | ~2019-04-30 | XMS | Encounter Summary ---
Demographics + + + | Address | [address] | | | [place] [address] | + + + | Home Phone | | + + + | Preferred Language | Unknown | + + + | Marital Status | Single | + + + | Pentecostal Affiliation | 1013 | + + + | Race | Unknown | + + + | Ethnic Group | Unknown | + + + Author + + + | Author | [facility] | | | and [place] | + + + | Organization | [facility] | | | [...] Team Providers + +------+ + | Care Applications Support Specialist Name | Role | Phone | + +------+ + | Shmuel Duarte | PCP | | + +------+ + Encounter Details +--------+ + + + + | Date | Type | Department | Care Team | Description | +--------+ + + + + | 04/12/ | Hospital | [facility] | Tahira Carl PA | | | 2017 | Encounter | [facility] | [address] | | | | | LABORATORY [address] [place], [place] | | | | | [facility] | [id number] | | | | | [place], [place] | | | | | | [address] | | | | | | [phone] | | | +--------+ + + + [...] [place] | | | | | | [address] | | | | | | | [...] + | [facility] | [address] | [place] [address] | | | [facility] | | | | | LABORATORY [...] | | | | | ng/dL | [facility] | | | | | | [facility] [...] + | [facility] | [address] | [place] [address] | | | [facility] | | [...] - 1.030 | [facility] | | | [place] | | | [facility] | | | [...] + | [facility] | [address] | [place] [address] | | | [facility] | | | | | LABORATORY | | | | + + + + + documented in this encounter Visit Diagnoses Not on filedocumented in this encounter"
--- OUTSIDE RECORDS SUMMARY | ~2019-04-30 | XMS | Encounter Summary ---
Demographics + + + | Address | [address] | | | [place] [address] | + + + | Home Phone [...] + + + | Author | [facility] | | | and [place] | + + + | Organization | [facility] | | | [...] Team Providers + +------+ + | Care Card Lacer Name | Role | Phone | + [...] + + | 04/10/ | Refill | [facility] | Tali Manzo DO | Medication Refill | | 2019 | | CARDIOLOGY [place]OB[place] | [address] | | | | | [address] | [place], [place] | | | | | [address] | [id number] | | | | | [place] | | | | | | [address] | | | | | | [phone] | | | +--------+--------+ + + + [...] now in | | | | | [employer] program | | | | | and [...] | | | | | [place] | | | | | | [address] | | | | | | | | +--------+---------+ + + + documented as of this encounter Visit Diagnoses Not on filedocumented in this encounter"
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
--- OUTSIDE RECORDS SUMMARY | ~2019-04-30 | XMS | Encounter Summary ---
Demographics + + + | Address | [address] | | | [place] [address] | + + + | Home Phone | | + + + | Preferred Language | Unknown | + + + | Marital Status | Single | + + + | Baptism Affiliation | 1013 | + + + [...] Team Providers + +------+ + | Care Cash Reconciliation Specialist Name | Role | Phone | + +------+ + | No, Physician | PCP | Unavailable | + +------+ + Reason for Visit + + + | Reason | Comments | + + + | Medication Refill | Exam 1/ Divalproex and Levothyroxine | + + + Encounter Details +--------+---------+ + + + | Date | Type | Department | Care Team | Description | +--------+---------+ + + + | 09/19/ | Office | [facility] | Susie Pearson, | Bipolar 1 disorder, | | 2018 | Visit | CARE [address] | MD [address] | mixed (HCC) (Primary | | | | [place], [place] | [place] | Dx); | | | | [address] | [address] | Hypothyroidism, | | | | [phone] | | unspecified type | +--------+---------+ + + + Social History [...] + + + | Blood Pressure | 143/92 | 09/19/2017 2:40 PM | | | | | PDT | | + + + + + | Pulse | 61 | 09/19/2017 2:40 PM | | | [...] + | Oxygen Saturation | 100% | 09/19/2017 2:40 PM | | | | | PDT | | + + + + + | Inhaled Oxygen | - | - | | | Concentration | | | | + + + + + | Weight | 53.3 kg (117 lb 8.1 | 09/19/2017 2:40 PM | | | | oz) | PDT | | + + + + + | Height | 167.6 cm (5' 6") | 09/19/2017 2:40 PM | | | | | PDT | | + + + + + | Body Mass Index | 18.97 | 09/19/2017 2:40 PM | | | | | PDT | | + + + + + documented in this encounter Patient Instructions Patient Instructions Susie Pearson MD - 09/19/2017 1:00 PM PDT Make sure to keep your appointments with [facility] and [facility] doctor. You are on a high dose of depakote, so you need to have blood work done frequently to make sure the level in your blood doesn't get too high. Bipolar Disorder Bipolar disorder is an illness that causes strong mood swings between depression and man ia . It used to be called "manic depression." The mood swings are different from the octavia l ups and downs we all experience in our lives. They are more severe, last longer, and can i nterfere with work and relationships. These episodes are changes from our usual moods and be havior. Their severity can be mild, or drastic and explosive. In a manic episode, you may think fast and do things quickly. It may seem like you are g etting a lot done. At first, this may feel very good. But in the extreme this can lead to a lifestyle that is disorganized, chaotic, and includes risky behavior (spending sprees, sexua l acting-out, or drug use). In later stages, it may affect eating (no interest in food) and sleeping (unable to sleep for days at a time). Speech may speed up and become difficult for others to understand. You may appear to others as if you are in your own world. In a depressive episode, you may feel a lack of interest in normal activities. Sometimes there is sadness or guilt without any clear reason. Thinking may become slow and there can be a lack energy or feeling of hopelessness. Some people have thoughts of harming themselves at this stage. Thoughts can even turn to suicide. Between these phases you may actually feel OK. This does not mean that the illness is gone. People with this disorder will usually have to treat it all of their life. Medicine and goo d care can greatly reduce the symptoms. The exact cause of this illness is unknown. However, there is a genetic link that makes a p janina more likely to get this problem. Also, the use of drugs such as speed (amphetamine) an d cocaine increase the chances of this illness appearing. Home care Here is what you can do at home: Ongoing care and support help people manage this disease. Find a healthcare provider and therapist who meet your needs. Seek help when you feel like you may be heading into either a manic episode or a depressive state. Be sure to take your medicine and get regular blood work to check the levels of medicine in your body. Take the medicine and get the follow-up lab work as prescribed,even if you think you don t need to do it. Be certain to tell each of your healthcare providers about all of the prescription and o bfx-nur-ldlxetf medicines, and supplements you take.Certain supplements interact with medi cines and result in dangerous side effects. You can also use your pharmacist as a resource mer roa when you have questions about medicine interactions. Talk with your family and trusted friends about your thoughts and feelings. Ask them to help you recognize behavior changes early so you can get help and medicines can be adjusted. Alcohol and drugs can bring on an episode, and make them worse If your life is severely impacted by this illness, the Americans with Disabilities Act ( ADA) may provide help. The ADA protects people with chronic physical and mental health probl ems. If you are having trouble keeping jobs, managing workplace issues, or caring for yourse lf because of your bipolar disorder, contact your local ADA office to see if it can help. [facility] [employer] operates a toll-free ADA information line at: 263.334.3448 (Voice ); or 209-966-1173 (TTY). It can help you locate a local office. Follow-up care Follow up with your healthcare provider or therapist as advised. They can help you to find ways to improve your life. Call 911 Call 911 if any of these happen: You have suicidal thoughts, a plan, and the means to harm yourself, or serious thought s of hurting someone else Trouble breathing Confusion Drowsiness or trouble wakening Fainting or loss of consciousness Rapid heart rate, very low heart rate, or a new irregular heart rate Seizure New chest pain that becomes more severe, lasts longer, or spreads into your shoulder, ar m, neck, jaw, or back When to seek medical advice Call your healthcare provider right away if any of these happen: Feeling like your symptoms are getting worse (depression, agitation, and excess energy) Unable to eat or sleep for more than 48 hours Feeling out of control (racing thoughts, or poor concentration) Feeling like you want to harm yourself or another Being unable to care for yourself Date Last Reviewed: 02/27/201719991601-6004 [employer]. [address] [place] [address]. All righ ts reserved. This information is not intended as a substitute for professional medical care. Always follow your healthcare professional's instructions. documented in this encounter Progress Notes Delores Nath RN - 09/19/2017 1:00 PM PDTVenipuncture x1 in left AC with 23g butterfly needle. One each green and red top tubes drawn and sent to lab. Delores Nath RN Susie Platt MD - 09/19/2017 1:00 PM PDT Subjective: Chief Complaint: Medication Refill (Exam 1/ Divalproex and Levothyroxine) History of Present Illness: Yue is a 57 y.o. female who comes in complaining of bipolar mixed type. Here with careg iveer on respite with [facility] and needs refills of levothyroxine 50 mcg daily and divalproex ER 250 mg 5 tabs daily. depakote level checked in [place] recently but never got results. a ppt [facility] 10/06/17 and medical 10/11/17. She says she is at respite b/c she can't think st raight and denies suicidality No other complaints. Patient's medications, allergies, past medical, surgical, social and family histories were reviewed and updated as appropriate. ROS: see HPI Objective: BP (!) 143/92 | Pulse 61 | Temp 36.9 C (98.5 F) (Temporal) | Resp 16 | Ht 1.676 m ( 5' 6") | Wt 53.3 kg (117 lb 8.1 oz) | SpO2 100% | ? No | BMI 18.97 kg/m General Appearance: Alert, cooperative, no distress, appears stated age Unclear historian with tangential thinking and flight of ideas and pressured speech Bottle of divalproex ER [address] tabs [address] Christiano Braswell in [place] (ER) on 07/17/17 Recent Results (from the past 24 hour(s)) Valproic Acid Level Result Value Ref Range DATE OF LAST DOSE TIME OF LAST DOSE VALPROIC ACID TOTAL 34.9 (L) 50.0 - 100.0 ug/mL Extra Plain Red Top Tube Result Value Ref Range Extra Plain Red Top Tube Done Assessment and Plans: 1. Bipolar 1 disorder, mixed (HCC) Valproic Acid Level 2. Hypothyroidism, unspecified type in crisis respite currently No suicidality. I refilled her Depakote ER to 50 at 1250 mg and her levothyroxine. She will keep her appoi ntments with [facility] and her medical appointment on 10/16. Follow-up here urgently as needed. This note was dictated using [employer] voice recognition software. Occasional wrong- word or s ound-alike substitutions may have occurred due to the inherent limitations of voice recognit ion software. Please read the chart carefully and recognize, using context, where these subs titutions have occurred. documented in this en counter Plan of Treatment +--------+---------+ + + + | Date | Type | Specialty | Care Team | Description | +--------+---------+ + + + | 08/15/ | Office | Cardiology | Tali Manzo DO | | | 2019 | Visit | | [address] | | | | | | [place] | | | | | | [address] | | | | | | | | +--------+---------+ + + + documented as of this encounter Procedures + +--------+ + + + | Procedure Name | Priori | Date/Time | Associated Diagnosis | Comments | | | ty | | | | + +--------+ + + + | EXTRA PLAIN RED TOP | Routin | 09/19/2017 | Bipolar 1 | Results for this | | | e | 3:26 PM | disorder, mixed | procedure are in the | | | | PDT | ([facility]) | results section. | | | | | Hypothyroidism, | | | | | | unspecified type | | + +--------+ + + + | VALPROIC ACID LEVEL | STAT | 09/19/2017 | Bipolar 1 | Results for this | | | | 3:25 PM | disorder, mixed | procedure are in the | | | | PDT | ([facility]) | results section. | + +--------+ + + + documented in this encounter Results Extra Plain Red Top Tube (09/19/2017 3:26 PM PDT) + +-------+ + + + | Component | Value | Ref Range | Performed | Pathologist | | | | | At | Signature | + +-------+ + + + | Extra Plain | Done | | [facility] | | | Red Top | | | [facility] | | | Tube | | | MEDICAL | | | | | | CENTER - | | | | | | LABORATORY | | + +-------+ + + + + + | Specimen | + + | Blood | + + + + + + + | Performing | Address | City/State/Zipcode | Phone Number | | Organization | | | | + + + + + | [facility] | [address] | [place] | [phone] | | [facility] | | [address] | | | - LABORATORY | | | | + + + + + Valproic Acid Level (09/19/2017 3:25 PM PDT) + + + + + + | Component | Value | Ref Range | Performed | Pathologist | | | | | At | Signature | + + + + + + | Date of | | | [facility] | | | Last Dose | | | [facility] | | | | | | MEDICAL | | | | | | CENTER - | | | | | | LABORATORY | | + + + + + + | Time of | | | [facility] | | | Last Dose | | | [facility] | | | | | | MEDICAL | | | | | | CENTER - | | | | | | LABORATORY | | + + + + + + | VALPROIC | 34.9 (L) | 50.0 - 100.0 | [facility] | | | ACID TOTAL | | ug/mL | [facility] | | | | | | MEDICAL | | | | | | CENTER - | | | | | | LABORATORY | | + + + + + + + + | Specimen | + + | Blood | + + + + + + + | Performing | Address | City/State/Zipcode | Phone Number | | Organization | | | | + + + + + | [facility] | [address] | [place] | [phone] | | [facility] | | [address] | | | - LABORATORY | | | | + + + + + documented in this encounter Visit Diagnoses + + | Diagnosis | + + | Bipolar 1 disorder, mixed (HCC) - Primary Bipolar I disorder, most recent episode (or | | current) mixed, unspecified | + + | Hypothyroidism, unspecified type | + + documented in this encounter
--- OUTSIDE RECORDS SUMMARY | ~2019-04-30 | XMS | Encounter Summary ---
Demographics + + + | Address | [address] | | | [place] [address] | + + + | Home Phone [...] Team Providers + +------+ + | Care Contract Technician Name | Role | Phone | + +------+ + | Shmuel Duarte | PCP | | + +------+ + Encounter Details +--------+ + + + + | Date | Type | Department | Care Team | Description | +--------+ + + + + | 04/21/ | Hospital | [facility] | Unknown, | | | 2016 | Encounter | [facility] | MD Matt | | | | | LABORATORY [address] | [phone] | | | | | Alyson [address] | | | | | | [place], [place] | | | | | | [address] | | | | | | [phone] | | | +--------+ + + + [...] | | | | | [place] | | | | | | [address] | | | | | | | [...] + | SEPIDEH MONTE | [address] [facility] | [place] [address] | | | [facility] | | | | | LABORATORY | | | | + + + + + documented in this encounter Visit Diagnoses Not on filedocumented in this encounter"
--- OUTSIDE RECORDS SUMMARY | ~2019-04-30 | XMS | Encounter Summary ---
Demographics + + + | Address | [address] | | | [place] [address] | + + + | Home Phone | | + + + | Preferred Language | Unknown | + + + | Marital Status | Single | + + + | Scientologist Affiliation | 1013 | + + + | Race | Unknown | + + + | Ethnic Group | Unknown | + + + Author + + + | Author | [facility] | | | and [place] | + + + | Organization | [facility] | | | and [...] Providers + +------+ + | Care Director Of Dance Name | Role | Phone | + [...] + + | 02/03/ | Refill | [facility] | Tali Manzo DO | Medication Refill | | 2019 | | CARDIOLOGY BOBO | [address] | | | | | [address] | [place], [place] | | | | | [facility] | [id number] | | | | | [place] | | | | | | [address] | | | | | | [phone] | | | +--------+--------+ + + + [...] now in | | | | | [facility] program | | | | | and [...] | | | | | [place] | | | | | | [address] | | | | | | | | +--------+---------+ + + + documented as of this encounter Visit Diagnoses Not on filedocumented in this encounter"
--- OUTSIDE RECORDS SUMMARY | ~2019-04-30 | XMS | Encounter Summary ---
Demographics + + + | Address | [address] | | | [place] [address] | + + + | Home Phone | | + + + | Preferred Language | Unknown | + + + | Marital Status | Single | + + + | Yazdanism Affiliation | 1013 | + + + [...] Team Providers + +------+ + | Care Electrical Timing Device Calibrator Name | Role | Phone | + [...] + | 10/11/ | Telephone | [facility] | Susie Pearson, | Results | | 2018 | | CARE [address] | [address] | | | | | [place] | [place] | | | | | [address] | [address] | | | | | [phone] | | | +--------+ + + + [...] [place] | | | | | | [address] | | | | | | | | +--------+---------+ + + + documented as of this encounter Visit Diagnoses Not on filedocumented in this encounter"
--- OUTSIDE RECORDS SUMMARY | ~2019-04-30 | XMS | Encounter Summary ---
Demographics + + + | Address | [address] | | | [place] [address] | + + + | Home Phone | | + + + | Preferred Language | Unknown | + + + | Marital Status | Single | + + + | Pentecostalism Affiliation | 1013 | + + + | Race | Unknown | + + + | Ethnic Group | Unknown | + + + Author + + + | Author | [facility] | | | and [place] | + + + | Organization | [facility] | | | [...] Team Providers + +------+ + | Care Facilities Flight Check Pilot Name | Role | Phone | + +------+ + | Rachel Duarte BOX FOLDING MACHINE OPERATOR | PCP | | + +------+ + [...] 2017 | | [facility] | BOX FOLDING MACHINE OPERATOR 101 , | back pain without | | | | EM[facility]Y CENTER | EMERGENCY RM | sciatica (Primary | | | | [address] | [place] [address] | Dx) | | | | [place] | [phone] | | | | | [address] | | | | | | [phone] | | | +--------+ + + + [...] pain. Muscle relaxer as prescribed. Follow-up with [facility] PCP for further evaluation as needed. AttachmentsThe following attachments cannot be sent through Care Everywhere.Back Pain, Reli eving (Emirati)documented in this encounter Medications at Time of [...] [place] | | | | | | [address] | | | | | | | [...] A?MRN: | | | | | | [id number] | | | [id number] | | | his | | | [...] + + | Performing | Address | City/State[facility] | Phone Number | | [...]
--- OUTSIDE RECORDS SUMMARY | ~2019-04-30 | XMS | Encounter Summary ---
Demographics + + + | Address | [address] | | | [place] [address] | + + + | Home Phone | | + + + | Preferred Language | Unknown | + + + | Marital Status | Single | + + + | Presybeterian Affiliation | 1013 | + + + | Race | Unknown | + + + | Ethnic Group | Unknown | + + + Author + + + | Author | [facility] | | | and [place] | + + + | Organization | [facility] | | | [...] Team Providers + +------+ + | Care Watch Adjuster Name | Role | Phone | + [...] | | EMERGENCY CENTER | [place] [address] | Dx); Anxiety about | | | | [address] | [phone] | health | | | | [place] | | | | | | [address] | | | | | | [phone] | | | +--------+ + + + [...] [place] | | | | | | [address] | | | | | | | [...] + | SEPIDEH MICHAEL | [address] | [place] [address] | | | [facility] | | | | | [...] + + | [facility] | [address] | [place] [address] | | | [facility] | [...] + + | SEPIDEH MICHAEL | [address] | [place] [address] | | | [facility] | | | | | LABORATORY | [...] + + | MAURAE LUZED | [address] | [place] [address] | | | [facility] | | | | | LABORATORY [...] + + + | Glucose | 66Comment: Tristanian | 65 - 99 mg/dL | [facility] [...] + | [facility] | [address] | [place] [address] | | | [facility] | | | | | LABORATORY [...] + + | ALFONSOJOSEPHRody MICHAEL | [address] | [place] [address] | | | [facility] | | | | | LABORATORY | [...] + + | Performing | Address | City/State/[facility]code | Phone Number | | Organization | [...]
--- OUTSIDE RECORDS SUMMARY | ~2019-04-30 | XMS | Encounter Summary ---
Demographics + + + | Address | [address] | | | [place] [address] | + + + | Home Phone [...] + + + | Author | [facility] | | | and [place] | + + + | Organization | [facility] | | [...] Team Providers + +------+ + | Care Lining Cutter Name | Role | Phone | + +------+ + | Shmuel Duarte | PCP | | + +------+ + Encounter Details +--------+ + + + + | Date | Type | Department | Care Team | Description | +--------+ + + + + | 04/20/ | Hospital | [facility] | Provider Not, In | | | 2017 | Encounter | [facility] | [facility] | | | | | LABORATORY [address] | Health and Service | | | | | [facility] | Yang Andersen, | | | | | [place], [place] | [address] [facility] | | | | | [address] | [place], [place] | | | | | [phone] | [address] | | | | | | [phone] | | | | | | | [...] [place] | | | | | | [address] | | | | | | | [...] + | SEPIDEH MONTE | [address] [facility] | [place] [address] | | | [facility] | | | | | LABORATORY [...] - 1.030 | [facility] | | | [place] | | | [place] | | | [...] + + | SEPIDEH MONTE | [address] [facility] | [place] [address] | | | [facility] | | | | | LABORATORY | | | | + + + + + documented in this encounter Visit Diagnoses Not on filedocumented in this encounter"
--- OUTSIDE RECORDS SUMMARY | ~2019-04-30 | XMS | Encounter Summary ---
Demographics + + + | Address | [address] | | | [place] [address] | + + + | Home Phone | | + + + | Preferred Language | Unknown | + + + | Marital Status | Single | + + + | Sikh Affiliation | 1013 | + + + | Race | Unknown | + + + | Ethnic Group | Unknown | + + + Author + + + | Author | [facility] | | | and [place] | + + + | Organization | [facility] | | [...] Team Providers + +------+ + | Care Rawhide Bone Roller Name | Role | Phone | + [...] + + | 01/18/ | Office | [facility] | Tali Manzo DO | LVH (left | | 2019 | Visit | CARDIOLOGY BOBO | [address] | ventricular | | | | [address] | [place] | hypertrophy) | | | | WAY [place] [address] | [id number] | (Primary Dx); | | | | [place] | | Moderate mitral | | | | [address] | | regurgitation | | | | [phone] | | | +--------+---------+ + + + [...] now in | | | | | [employer] program | | | | | and [...] Tali Manzo, - 01/18/2019 2:00 PM PDT [facility] Cardiology Cardiology Consult Note Reason for [...] very active lately. 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 Drug use: Yes [...] | | | | | [place] | | | | | | [address] | | | | | | | | +--------+---------+ + + + documented as of this encounter Visit Diagnoses + + | Diagnosis | + + | LVH (left ventricular hypertrophy) - Primary Cardiomegaly | + + | Moderate mitral regurgitation Mitral valve disorders | + + documented in this encounter
--- OUTSIDE RECORDS SUMMARY | ~2019-04-30 | XMS | Encounter Summary ---
Demographics + + + | Address | [address] | | | [place] [address] | + + + | Home Phone | | + + + | Preferred Language | Unknown | + + + | Marital Status | Single | + + + | Yazidi Affiliation | 1013 | + + + | Race | Unknown | + + + | Ethnic Group | Unknown | + + + Author + + + | Author | [facility] | | | and [place] | + + + | Organization | [facility] | | | and [place] | + + + | Address | Unknown | + + + | Phone | Unavailable | + + + Support + + + + + | Name | Relationship | Address | Phone | + + + + + | aCssidy Perez | ECON | Unknown | | + + + + + | Sara Tse | ECON | [place], [place] | | + + + + + | Brant Almazan | ECON | Unknown | | + + + + + | Sherine Tse | ECON | Unknown | | + + + + + Care Team Providers + +------+ + | Care Industrial Education Instructor Name | Role | Phone | + [...] [place] | Dx); | | | | [address] | [address] | Hypothyroidism, | | | | [phone] | | unspecified type | +--------+---------+ + [...] Make [facility] to [facility]. You are on a [...] about all of the prescription and o qju-mzx-vqerhbi medicines, and supplements you take.Certain supplements interact [...] office to see if it can help. [facility] [employer] operates a toll-free ADA information line at: [phone] (Voice ); or [phone] (TTY). It can help you locate a [...] to care for yourself Date Last Reviewed: 02/27/201719992792-1956 [employer]. [address] [place] [address]. All righ ts reserved. This information is [...] Here with careg iveer on respite with [facility] and needs refills of levothyroxine 50 mcg daily and divalproex ER 250 mg 5 tabs daily. depakote level checked in [place] recently but never got results. a ppt [facility] 10/06/17 and medical 10/11/17. She says she [...] [address] Christiano Braswell in [place] (ER) on 07/17/17 Recent Results (from the [...] She will keep her appoi ntments with [facility] and her medical appointment on 10/16. Follow-up here urgently as needed. This note was dictated using [employer] voice recognition software. Occasional wrong- word or [...] [place] | | | | | | [address] | | | | | | | [...] the | | | | PDT | ([facility]) | results section. | | | | | Hypothyroidism, | | | | | | unspecified type | | + +--------+ + + + | VALPROIC ACID LEVEL | STAT | 09/19/2017 | Bipolar 1 | Results for this | | | | 3:25 PM | disorder, mixed | procedure are in the | | | | PDT | ([facility]) | results section. | + +--------+ + [...] + | [address] | [address] | [place] | [phone] | | [facility] | | [address] | | | - LABORATORY | | [...] ST. | [address] | [place] | [phone] | | [facility] | | [address] | | | - LABORATORY | | [...]
[~2019-04-30 18:56] MED LIST changes: +METOPROLOL SUCC50 MG PO; +OLANZAPINE ODT5 MG PO; +REXULTI3 MG PO; +TRAZODONE HCL100 MG PO
--- OUTSIDE RECORDS SUMMARY | 2019-04-30 19:00 | XMS ---
PreManage Notification: SARKIS KOO Security Clinical Outcomes Manager Events No recent Security Events currently on file CRITERIA MET - [facility] CARE PROVIDERS ANAYELI QUIROZ Nurse Practitioner: 07/26/2018-Current PHONE: Unknown RACHEL RASMUSSEN Nurse Practitioner Current PHONE: Unknown ANAYELI QUIROZ Primary Care Current PHONE: Unknown RACHELE DOWNEY [facility] Care [facility] PHONE: Unknown [employer] Mental Health Provider Current PHONE: [phone] Aniket Nix - Case or Bargeman Current [facility] PHONE: [phone] RACHEL RASMUSSEN Primary Care Current PHONE: [phone] Guidelines Source: [employer] [facility] [place] Guidelines Date: 10/04/2018 Care Coordination: Mental Health services with [employer].\T\nbsp; Please contact [employer] for mental health concerns.\T\nbsp; [place]: [phone]\T\nbsp; [place]: [phone]. Care History Medical/Surgical 07/26/2018 [facility] - Patient is currently established with [facility]. If patient is seen in the ED during business hours. Please contact CHWs at [facility]. Care Recommendation: This patient has had 5 or more Emergency Department visits in the last 12 months.\T\nbsp; Patient requires education on the scope and purpose of the ED as an acute care provider not a Primary Care Provider and should not be utilized for chronic conditions.\T\nbsp; These are guidelines and the provider should exercise clinical judgment when providing care. 10/04/2017 [facility] - Patient is currently being case managed and working with [employer]. - Patient currently lives at [place], and has psychiatric disorder. Care Recommendation: This patient has had 5 or more Emergency Department visits in the last 12 months. Patient requires education on the scope and purpose of the ED as an acute care provider not a Primary Care Provider and should not be utilized for chronic conditions. If patient returns to ED please contact [facility] at [phone]. These are guidelines and the provider should exercise clinical judgment when providing care. E.D. VISIT COUNT (12 MO.) [address] TOTAL 3 NOTE: Visits indicate total known visits. ED/UCC VISIT TRACKING (12 MO.) 04/30/2019 18:57 [facility] [place] TYPE: Emergency COMPLAINT: - HEAD INJURY 10/02/2018 13:11 [facility] [place] TYPE: Emergency DIAGNOSES: - Anesthesia of skin - L SIDE OF FACE NUMBNESS 07/25/2018 18:13 [facility] [place] TYPE: Emergency COMPLAINT: - DIZZINESS DIAGNOSES: - Syncope and collapse - Allergy status to oth drug/meds/biol subst status - Dizziness and giddiness - Other nonmedicinal substance allergy status - Allergy status to narcotic agent status - Bipolar disorder, unspecified - Other assisted (current) drug therapy INPATIENT VISIT TRACKING (12 MO.) No inpatient visits to display in this time frame [email or web address]
== END 2019-04-30 20:55 | disposition home or self-care (01) ==
LOC: ED 18:56
DX: S06.0X0A Concussion without loss of consciousness, initial encounter (principal); S00.83XA Contusion of other part of head, initial encounter; W22.8XXA Striking against or struck by other objects, initial encounter; F31.9 Bipolar disorder, unspecified; Z88.5 Allergy status to narcotic agent; Z88.8 Allergy status to other drugs, medicaments and biological substances; Z91.048 Other nonmedicinal substance allergy status; Z79.899 Other long term (current) drug therapy
CPT/HCPCS: 70450; 70486; 99283-25

== ENCOUNTER 2019-07-23 11:55 | Emergency (ER) | payer MEDICARE, OTHER ==
[~2019-07-23] VITALS: Ht 167.6 cm; Wt 66.7 kg
--- OUTSIDE RECORDS SUMMARY | 2019-07-23 11:58 | XMS ---
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 No recent Security Events currently on file CRITERIA MET - [facility] CARE PROVIDERS JONATHAN QUIROZ Nurse Practitioner: 07/26/2018-Current PHONE: [phone] RACHEL RASMUSSEN Nurse Practitioner Current PHONE: [phone] JONATHAN QUIROZ Primary Care Current PHONE: Unknown RACHELE DOWNEY [facility] Care [facility] PHONE: Unknown [facility] Provider Current PHONE: [phone] Aniket Nix - Case or Lime Boiler [facility] PHONE: [phone] RACHEL RASMUSSEN Primary Care Current PHONE: [phone] Guidelines Source: [facility] - [place] Guidelines Date: 10/04/2018 Care Coordination: Mental Health services with [facility].\T\nbsp; Please contact [facility] for mental health concerns.\T\nbsp; [place]: [phone]\T\nbsp; [place]: [phone]. Care History Medical/Surgical 05/01/2019 [facility] Patient has 6 month follow up with Jonathan Quiroz on 10/15/2019 07/26/2018 [facility] - Patient is currently established with [facility]. If patient is seen in the ED during business hours. Please contact CHWs at [facility]. Care Recommendation: This patient has had 5 or more Emergency Department visits in the last 12 months.\T\nbsp; Patient requires education on the scope and purpose of the ED as an acute care provider not a Primary Care Provider and should not be utilized for chronic conditions.\T\nbsp; These are guidelines and the provider should exercise clinical judgment when providing care. 10/04/2017 [facility] - Patient is currently being case managed and working with [facility]. - Patient currently lives at [place], and has psychiatric disorder. Care Recommendation: This patient has had 5 or more Emergency Department visits in the last 12 months. Patient requires education on the scope and purpose of the ED as an acute care provider not a Primary Care Provider and should not be utilized for chronic conditions. If patient returns to ED please contact [facility] at [phone]. These are guidelines and the provider should exercise clinical judgment when providing care. E.D. VISIT COUNT (12 MO.) [address] TOTAL 4 NOTE: Visits indicate total known visits. ED/UCC VISIT TRACKING (12 MO.) 07/23/2019 11:56 [facility] [place] [place] TYPE: Emergency COMPLAINT: - SHAKING 04/30/2019 18:57 [facility] [place] TYPE: Emergency COMPLAINT: - HEAD INJURY DIAGNOSES: - Other terminal block assembler (current) drug therapy - Bipolar disorder, unspecified - Other nonmedicinal substance allergy status - Concussion without loss of consciousness, initial encounter - Striking against or struck by other objects, init encntr - Allergy status to narcotic agent status - Contusion of other part of head, initial encounter - Allergy status to oth drug/meds/biol subst status 10/02/2018 13:11 [facility] [place] TYPE: Emergency DIAGNOSES: - Anesthesia of skin - L SIDE OF FACE NUMBNESS 07/25/2018 18:13 [facility] [place] TYPE: Emergency COMPLAINT: - DIZZINESS DIAGNOSES: - Syncope and collapse - Allergy status to oth drug/meds/biol subst status - Dizziness and giddiness - Other nonmedicinal substance allergy status - Allergy status to narcotic agent status - Bipolar disorder, unspecified - Other prison (current) drug therapy INPATIENT VISIT TRACKING (12 MO.) No inpatient visits to display in this time frame [email or web address]
[2019-07-23] MEDS ORDERED: LAMOTRIGINE25 MG PO (12:01)
[2019-07-23] MEDS ORDERED: BUSPIRONE HCL5 MG PO (14:02)
--- NOTE | 2019-07-23 17:50 | EKG ---
[facility] [address] [facility] [place], [place] [address] Signed Normal sinus rhythm Cannot rule out Anterior infarct , age undetermined Abnormal ECG Confirmed by YOLANDE LANDEROS MD ([id number]) on 07/23/2019 5:49:56 PM Electronically Signed By: YOLANDE LANDEROS MD 07/23/19 175 PATIENT NAME: SARKIS KOO Electrocardiogram DATE OF : 64 PHYSICIAN: YOLANDE LANDEROS MD REPORT #: [id number] REPORT IS CONFIDENTIAL AND NOT TO BE RELEASED WITHOUT AUTHORIZATION
== END 2019-07-23 14:20 | disposition home or self-care (01) ==
LOC: ED 11:55
DX: F41.9 Anxiety disorder, unspecified (principal); Z88.5 Allergy status to narcotic agent; Z88.8 Allergy status to other drugs, medicaments and biological substances; Z79.899 Other long term (current) drug therapy
CPT/HCPCS: 80053; 84436; 84443; 84479; 84484; 85025; 93005; 93010; 96374; 99284-25; J2060

== ENCOUNTER 2022-12-23 17:23 | Emergency (ER) | payer MEDICARE, OTHER ==
[~2022-12-23] VITALS: Ht 167.6 cm; Wt 52.6 kg
[~2022-12-23 17:23] MED LIST changes: +BUSPIRONE HCL5 MG PO; +LAMOTRIGINE25 MG PO
[2022-12-23 20:09] VITALS: BP 156/95
--- NOTE | 2022-12-24 06:32 | EKG ---
[facility] [address] [facility] [place], [place] [address] Signed Sinus bradycardia Possible Left atrial enlargement Anterior infarct (cited on or before 25-JUL-2018) Abnormal ECG When compared with ECG of 23-JUL-2019 12:26, No significant change was found Confirmed by LILIAN LOYOLA MD ([id number]) on 12/24/2022 6:31:57 AM Electronically Signed By: LILIAN LOYOLA 12/24/22 0632 PATIENT NAME: SARKIS KOO Electrocardiogram DATE OF : 64 PHYSICIAN: LILIAN LOYOLA REPORT #: [id number] REPORT IS CONFIDENTIAL AND NOT TO BE RELEASED WITHOUT AUTHORIZATION
== END 2022-12-23 20:09 | disposition home or self-care (01) ==
LOC: ED 17:23
DX: R06.02 Shortness of breath (principal); E07.9 Disorder of thyroid, unspecified; Z20.822 Contact with and (suspected) exposure to COVID-19; Z88.5 Allergy status to narcotic agent; Z88.8 Allergy status to other drugs, medicaments and biological substances; Z91.09 Other allergy status, other than to drugs and biological substances; Z91.041 Radiographic dye allergy status; Z79.899 Other long term (current) drug therapy
CPT/HCPCS: 36415; 71045; 80053; 83880; 84484; 85025; 85379; 87502; 93005; 93010; 99285 25; A9270; U0002

== ENCOUNTER 2023-01-25 09:57 | Day surgery (SDC) | payer MEDICARE, OTHER ==
[2023-01-20 09:26] VITALS: BP 139/91
[~2023-01-25] VITALS: Ht 167.6 cm; Wt 51.3 kg
[2023-01-25 10:11] VITALS: BP 138/77
[2023-01-25 12:58] VITALS: BP 155/85
--- NOTE | 2023-01-25 13:05 | NUR ---
01/25/23 1305 Katrin Galvan 1235 PT ARRIVED IN PACU WIDE AWAKE. ABD SOFT AND PASSING FLATUS. 1245 DR AT BEDSIDE. ALL QUESTIONS ANSWERED. 1255 GETTING DRESSED. 1300 DC INSTRUCTIONS GIVEN.
--- NOTE | 2023-01-27 10:42 | OR ---
[facility] [address] [place], [place] [address] Signed DATE OF OPERATION: 01/25/2023 SURGEON: Ezekiel Preston MD PREOPERATIVE DIAGNOSIS: History of colonic polyps. POSTOPERATIVE DIAGNOSES: 1. Extensive diverticulosis. 2. Sessile polyp, mid sigmoid. PROCEDURES: Total colonoscopy to cecum with endomucosal resection of sigmoid polyp (mucosal lift technique) including mucosal apposition with hemoclips. ANESTHESIA: Intravenous sedation, Steven Olivas, SECOND OPERATOR INDICATIONS: This 62-year-old white woman is a patient of Shay Camejo. She underwent colonoscopy in [place], [place] in the past, where she was found to have two polyps. She has no family history of colon cancer, and currently no symptoms of bleeding, diarrhea, or constipation. The patient does have a medical history notable for syncopal episode and history of valvular heart murmur. She is admitted to undergo surveillance colonoscopy at this time, understands the risk of bleeding, infection, and perforation. Given her medication profile and other issues, she is having elevated ASA level and on that basis, propofol infusional sedation is needed. The risk of bleeding, infection, and perforation related to colonoscopy were reviewed with her. She understands and wished to proceed. FINDINGS: The prep was good. Complete colonoscopy was undertaken to the cecum without question. She had numerous large diverticula of the sigmoid and left colon. There was a sessile polyp in the mid sigmoid colon, which required a mucosal lift resectional technique. This was accomplished well and mucosal apposition was accomplished with hemoclips. DESCRIPTION OF PROCEDURE: The patient was brought to the endoscopy suite and placed in lateral decubitus position given intravenous sedation with propofol infusional sedation technique with full cardiopulmonary monitoring. Digital rectal examination was normal. Electronically Signed By: EZEKIEL PRESTON MD 01/27/23 1042 PATIENT NAME: SARKIS KOO OPERATIVE REPORT DATE OF : 64 REPORT #: [id number] PHYSICIAN: EZEKIEL PRESTON MD PCP: SHAY CAMEJO PA-C REPORT IS CONFIDENTIAL AND NOT TO BE RELEASED WITHOUT AUTHORIZATION [facility] [address] [place], [place] [address] Signed An Olympus video colonoscope was passed into the rectum and manipulated into the sigmoid, where numerous diverticula were noted. A sessile polyp was noted in the mid sigmoid. It was left for later for resection. The scope was ultimately advanced to the cecum. The ileocecal valve and appendiceal orifice were normal. The scope was withdrawn from that point. Examination showed no sign of abnormality other than diverticulosis of the left colon. Upon approaching of the sigmoid lesion, narrow-band imaging was used to ascertain that this did represent a polyp and absolutely did. Given its flat nature and its location within a segment of extensive diverticulosis, the mucosal lift resectional technique was deemed most advisable. Spot Endo eloisa tattoo dye was infiltrated with a sclerotherapy needle in the base of the polyp, which elevated away from the submucosa. Using hot snare polypectomy technique, excision was undertaken. The underlying submucosa was well visualized and well tattooed. The polyp itself was grasped and withdrawn and removed and offloaded. The scope was reintroduced and examination of the site showed it to be hemostatic without sign of complication. Nevertheless, mucosal apposition was deemed advisable, this was accomplished with at least two hemoclips. Good closure was noted. The scope was then withdrawn and remaining rectosigmoid and rectum was normal. Scope was removed. The patient was taken to recovery room in good condition. CONCLUDING DIAGNOSES: 1. Extensive diverticulosis. 2. Sessile polyp with sigmoid. PLAN: We will recommend repeat colonoscopy in 5 years or sooner if clinically indicated. She will return to the ongoing care of Shay Camejo. MD GUMARO Villarreal/ISMAELL /[id number] cc: Shay Camejo Electronically Signed By: EZEKIEL PRESTON MD 01/27/23 1042 PATIENT NAME: SARKIS KOO OPERATIVE REPORT DATE OF : 64 REPORT #: [id number] PHYSICIAN: EZEKIEL PRESTON MD PCP: SHAY CAMEJO PA-C REPORT IS CONFIDENTIAL AND NOT TO BE RELEASED WITHOUT AUTHORIZATION [address] [place], [place] [address] Signed Copies: ~ Electronically Signed By: EZEKIEL PRESTON MD 01/27/23 1042 PATIENT NAME: SARKIS KOO LB OPERATIVE REPORT DATE OF : 64 REPORT #: [id number] PHYSICIAN: EZEKIEL PRESTON MD PCP: SHAY CAMEJO PA-C REPORT IS CONFIDENTIAL AND NOT TO BE RELEASED WITHOUT AUTHORIZATION
--- NOTE | 2023-01-28 14:28 | PATH ---
[facility] [address], [place] [address] Signed SPECIMEN(S): A SIGMOID POLYP SPECIMEN SOURCE: A. SIGMOID POLYP CLINICAL HISTORY: History of polyps. Postop: Diverticulosis; polyp x 1 FINAL PATHOLOGIC DIAGNOSIS: Sigmoid polyp: - Hyperplastic polyp (multiple fragments). JVR:[facility] MICROSCOPIC EXAMINATION: Histologic sections of all submitted blocks are examined by light microscopy. These findings, together with the gross examination, support the pathologic diagnosis. GROSS DESCRIPTION: The specimen, labeled and designated "Carmencita, S, colon, sigmoid polypectomy," is received in formalin and consists of 1 giordano-brown soft polypoid tissue fragment measuring 1.0 x 0.8 x 0.8 cm is inked green on the resection margin, serially sectioned and submitted entirely in (A1). MMA (under the direct supervision of a pathologist) The Gross Description was prepared using a voice recognition system. The report was reviewed for accuracy; however, sound-alike word errors, addition and/or deletions may occur. If there is any question about this report, please contact Client Services. PERFORMING LABORATORY: Technical component was performed by [employer], [address] [place] [id number] (CLIA# [id number]). Professional interpretation was performed by [facility], [address] [place] [id number] (CLIA#: [id number]). Diagnostician: Thuan Charles MD Pathologist Electronically Signed 01/28/2023 PATIENT NAME: SARKIS KOO PATHOLOGY DATE OF : 64 REPORT #: [id number] PHYSICIAN: SOSA KAY PCP: SHAY CAMEJO PA-C REPORT IS CONFIDENTIAL AND NOT TO BE RELEASED WITHOUT AUTHORIZATION [address] [address] Signed Copies: ~ PATIENT NAME: SARKIS KOO PATHOLOGY DATE OF : 64 REPORT #: [id number] PHYSICIAN: SOSA PATHOLOGY PCP: SHAY CAMEJO PA-C REPORT IS CONFIDENTIAL AND NOT TO BE RELEASED WITHOUT AUTHORIZATION
== END 2023-01-25 13:07 | disposition home or self-care (01) ==
LOC: OPS 09:57 → DS 09:57 → OPS 11:45
PROVIDERS: ATTEND Surgery
PROC: 3E0H8GC Introduction of Other Therapeutic Substance into Lower GI, Via Natural or Artificial Opening Endoscopic (ICD-10-PCS; 2023-01-25)
PROC: 0DBN8ZZ Excision of Sigmoid Colon, Via Natural or Artificial Opening Endoscopic (ICD-10-PCS; principal; 2023-01-25 11:45)
DX: Z12.11 Encounter for screening for malignant neoplasm of colon (principal); Z86.010 Personal history of colon polyps; F31.9 Bipolar disorder, unspecified; E03.9 Hypothyroidism, unspecified; K63.5 Polyp of colon; K57.30 Diverticulosis of large intestine without perforation or abscess without bleeding
CPT/HCPCS: 00811; J2704; J7121